=== PATIENT | female | born 1950 | race Caucasian/White ===

== ENCOUNTER 2024-01-27 08:12 | Day surgery (SDC) | payer SELFPAY, OTHER ==
[2024-01-27] VITALS (8 sets, daily range): BP systolic 120–163; BP diastolic 54–91; PULSE 55–76; RESP 16–18; TEMP 35.9–36.9; O2SAT 98–100; BMI 22.1
--- NOTE | 2024-01-27 | COLBX_PTH ---
PATIENT: JACKLYN FOOTE LOC: [facility] U#:[id number] AGE/SX: 73/F ROOM: RE01/27/[address]: Dr. Alee Alas MD : 1950 BED: DIS: 01/27/2024 SPEC #: [id number] RECD: 01/27/24 13:29 STATUS: JESUSITA BRANDT #: [id number] ANGEL: 01/27/24 00:[address]: Alee Alas DEPT: SURGICAL PATHOLOGY RECD BY: Pradip De Leon ENTERED: 01/28/24 09:41 SP TYPE: COLON BX ADORE DR: Modesta Corado, LIFE SCIENCE TEACHER-C Tissues: COLON BIOPSY Procedures: Surgery Specimen Level IV HEADER OPERATION: Colonoscopy with biopsy and electrohemostasis PRE-OP DIAGNOSIS: Encounter for colonoscopy due to history of colon cancer, history of hemicolectomy TISSUE SUBMITTED: Distal to anastomosis polyp biopsy MICROSCOPIC DIAGNOSIS Polyp distal to anastomosis, biopsy: Mucosal ulceration with associated acute and chronic inflammation and early granulation. . 01/29/2024 MICROSCOPIC DESCRIPTION Slides are reviewed. GROSS DESCRIPTION Received in fixative is one container labeled with the patient's name and designated Distal to anastomosis polyp biopsy. The specimen consists of one irregular fragment of light yost soft tissue that measures 0.3 x 0.3 x 0.1 cm. The specimen is totally submitted in one cassette. / 01/28/2024 TC:2 CPT:30056
--- NOTE | 2024-01-27 08:44 | PRE.ANES_ITS ---
ASA Classification* ASA Classification ASA Classification: 2 Assessment & Plan Anesthesia* Anesthesia Assessment Anesthesia Assessment: Discussed sedation and/or anesthesia options, risks, benefits, and alternatives with patient/parents/legal guardian/POA. Questions invited. The patient/parents/legal guardian/POA seems to understand and agrees to proceed with anesthesia plan. Reviewed the physical assessment, medical history, allergy history and patient home medications list prior to surgery/procedure/anesthetic and documented any changes. Performed airway and anesthesia risk assessments. 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 When Was Last Pacemaker Check QUESTION #4 FULL TEXT: You/Your Family Experience fever (hyperthermia) with Anesthesia Last Oral Intake Last Oral intake: Last Oral Intake NPO since Meds taken in AM with sips of water? Meds patient instructed to take am of surgery PONV PONV - leather polisher: PONV - leather polisher Female Yes 01/24/24 14:44 HX of Motion Sickness No 01/24/24 14:44 HX of N/V After Surgery No 01/24/24 14:44 Non-Smoker Yes 01/24/24 14:44 Duration of Surgery greater No 01/24/24 14:44 than 60 minutes Number of Risk Factors 2 01/24/24 14:44 PONV Score Moderate Risk 01/24/24 14:44 Height & Weight Height & Weight: Anesthesia: Height & Weight Height 5 ft 5 in 12/18/23 09:31 Respiratory Assessment Respiratory Assessment - leather polisher: Respiratory Tract Infection Hx - leather polisher Hx Respiratory Tract Infection No 01/24/24 14:44 STOP Sleep Apnea STOP Sleep Apnea - leather polisher: STOP Sleep Apnea - leather polisher Hx Hypertension No 01/24/24 14:44 Hx Sleep Apnea No 01/24/24 14:44 CPAP BIPAP Do you snore loudly (louder No 01/24/24 14:44 than talking or can be heard Do you often feel tired/ No 01/24/24 14:44 fatigued/ sleepy during daytime? Has anyone observed you stop No 01/24/24 14:44 breathing during sleep? STOP Results Negative 01/24/24 14:44 QUESTION #5 FULL TEXT : Do you snore loudly (louder than talking or can be heard through closed doors)? 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 Specify any problems Hx of Preganancy in last 3 N/A 01/24/24 14:44 Months Nurse Filling Out Transfusion NBUCHER 01/24/24 14:44 & Questions: Date: 01/24/24 01/24/24 14:44 Time: 14:46 01/24/24 14:44 Patient unable to answer at this time (ie. confused, unrespo /Reproduction History /Reproductive History - leather polisher: /Reproductive Hx- leather polisher Hx Now Gestational Age (in weeks): EDC: Hx Hx Para Hx Section SAB Active Medications Active Medications: Current Medications Generic Name Dose Route Start Last Admin Trade Name Freq PRN Reason Stop Dose Admin Lactated Ringer's 1,000 mls @ 15 mls/hr 01/27/24 08:45 IV .Q48H NATHAN PFSH Medical History Wears hearing aid Loss of hearing Wears glasses Wears dentures Cancer Low iron Non-smoker Adenocarcinoma of colon Home Medications ?Medication ?Instructions ?Recorded ?Last Taken ?Type ferrous sulfate 325 mg (65 mg 325 mg PO 3XW 12/18/23 Unknown History iron) tablet (Feosol) Allergy/AdvReac Type Severity Reaction Status Date / Time No Known Allergies Allergy Verified 01/24/24 14:43 Family History Mother Breast cancer Sister Breast cancer Sister Breast cancer Surgical History History of colonoscopy History of partial pancreatectomy H/O: hysterectomy H/O hemicolectomy Social History Smoking Status: Never smoker alcohol intake: never Review of Systems (Anesthesia) ROS Narrative System reviewed and no additional complaints, except as documented.
[2024-01-27] MEDS: Lactated Ringers 1,000 ML 15 ML IV (09:04)
--- NOTE | 2024-01-27 09:11 | HP.PCM_ITS ---
HPI - General General Date of Service: 01/27/24 HPI Narrative JACKLYN FOOTE, is a 73 F who presents office visit 12/18/23 [facility] HPI: 73-year-old female presents for surveillance colonoscopy due to history of sigmoid colon cancer status post sigmoidectomy in [place] in June 2022 for near obstructing lesion node-negative. Patient had a colonoscopy which is unable to be passed but he is obstructing lesion in July 05 at [facility]. Due to cost, etc. patient and family decided to go to [facility] for surgery. Patient also went down to [place] in December 2022 and had a mass removed from her pancreas do not have op notes or pathology from this surgery. 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 Patient has never had a colon follow-up colonoscopy and prior to the one in June 2022 she has never had a previous 1 thus not had a completion. Patient has had CAT scan did review the last one from November patient did have significant stool throughout the colon no obvious lesions were seen in the remaining colon. Patient states she has bowel movements 1-2 times a day denies any blood. Patient denies any chronic abdominal pain/nausea/vomiting/reflux. [facility] Medical History Wears hearing aid Loss of hearing Wears glasses Wears dentures Cancer Low iron Non-smoker Adenocarcinoma of colon Home Medications ?Medication ?Instructions ?Recorded ?Last Taken ?Type ferrous sulfate 325 mg (65 mg 325 mg PO 3XW 12/18/23 Unknown History iron) tablet (Feosol) Allergy/AdvReac Type Severity Reaction Status Date / Time No Known Allergies Allergy Verified 01/24/24 14:43 Family History Mother Breast cancer Sister Breast cancer Sister Breast cancer Surgical History (Updated 01/27/24 @ 09:[address] Alee Alas MD) History of colonoscopy History of partial pancreatectomy H/O: hysterectomy H/O hemicolectomy Social History Smoking Status: Never smoker alcohol intake: never Past Medical/Surgical History Planned Operation Planned Operative Procedure(s): CSCOPE Previous Hospitalizations/Surgeries HX Hospitalizations: Yes ([facility] 05/14/2023 PANCREAS ANUERISM) Any Problems With Anesthesia: No You/Your Family Experience Fever (Hyperthermia) With Anes: No Cholinesterase deficiency: No Cardiovascular Hx Hypertension: No Respiratory Hx Sleep Apnea: No Hx Respiratory Tract Infection/Cold (presently): No Do You Snore Loudly (louder than talking or can be heard): No Do You Often Feel Tired/ Fatigued/ Sleepy Dring Daytime?: No Has Anyone Observed You Stop Breathing During Sleep?: No Result (for STOP score): Negative Smoking Status: Never smoker Neurological Does patient have nerve stimulator: No Miscellaneous Recent Exposure to Contagious Disease: No Allergies No Known Allergies Allergy (Verified 01/24/24 14:43) Discharge Is Pt Admitted From a Long Term, or a Prison: No After D/C, Where Do you Plan to Go: Return Home Vital Signs Vital Signs Vital Signs: 01/27/24 08:48 01/27/24 08:48 Temperature 96.6 F L Temperature Source Temporal Pulse Rate 55 L Respiratory Rate 18 Respiratory Pattern Normal Blood Pressure 163/54 H Blood Pressure Mean 90 Blood Pressure Source Monitor Blood Pressure Position Semi-Fowlers Blood Pressure Location Left Arm Pulse Ox 99 Oxygen Delivery Method Room Air Weight Weight: 132 lb 15.02 oz Body Mass Index (BMI) 22.1 Physical Exam Const alert, oriented x3 and no apparent distress HEENT normocephalic and head/scalp atraumatic Resp normal respiratory effort Cardio regular rate GI soft to palpation and non-tender; Negative for non-distended GI Narrative: Well-healed midline incision Palpation: Negative for guarding Extremity no clubbing, cyanosis or edema Skin no rashes or lesions noted Neuro CN's II-XII intact bilaterally Psych mental status grossly normal Assessment & Plan Assessment/Plan (1) Encounter for colonoscopy due to history of colon cancer: (2) H/O hemicolectomy: Surgery Risks - Colonoscopy I discussed with the patient the risks of the procedure: Yes Risks Include but are not Limited To: Risks include but are not limited to: Bleeding, perforation requiring further surgery, inability to complete colonoscopy requiring barium enema.
--- NOTE | 2024-01-27 12:08 | OP.COLON_ITS ---
Patient Name: Shobha Calhoun Procedure Date: 01/27/2024 11:28 AM Date of : 1950 Age: 73 Procedure: Colonoscopy Indications: High risk colon cancer surveillance: Personal history of colon cancer Providers: Alee Alas MD Medicines: Monitored Anesthesia Care Patient Profile: This is a 73 year old female. Last Colonoscopy: 2022. She is status post sigmoid colectomy 2022. Complications: No immediate complications. Procedure: Pre-Anesthesia Assessment: - Prior to the procedure, a History and Physical was performed, and patient medications and allergies were reviewed. The patient's tolerance of previous anesthesia was also reviewed. The risks and benefits of the procedure and the sedation options and risks were discussed with the patient. All questions were answered, and informed consent was obtained. Prior Anticoagulants: The patient has taken no anticoagulant or antiplatelet agents. ASA Grade Assessment: Per anesthesia. After reviewing the risks and benefits, the patient was deemed in satisfactory condition to undergo the procedure. After I obtained informed consent, the scope was passed under direct vision. Throughout the procedure, the patient's blood pressure, pulse, and oxygen saturations were monitored continuously. The Colonoscope was introduced through the anus and advanced to the cecum, identified by the appendiceal orifice, ileocecal valve and palpation. The colonoscopy was performed without difficulty. The patient tolerated the procedure well. The quality of the bowel preparation was good. Scope In: 11:39:10 AM Scope Withdrawal Time 0 hours 14 minutes 57 seconds Scope Out: 11:59:59 AM Total Procedure Duration Time 0 hours 20 minutes 49 seconds Findings: The perianal and digital rectal examinations were normal. A less than 5 mm polyp was found in the distal rectum. The polyp was sessile. The polyp was removed with a cold biopsy forceps. Resection and retrieval were complete. Coagulation for hemostasis of bleeding caused by the procedure using heater probe was successful. Colorectal anastomosis widely patent. Impression: - One less than 5 mm polyp in the distal rectum, removed with a cold biopsy forceps. Resected and retrieved. Treated with a heater probe. Recommendation: - Discharge patient to home. - Resume previous diet. - Continue present medications. - Await pathology results. - Repeat colonoscopy 1-3 years for surveillance based on pathology results. Procedure Code(s): --- Professional --- 96180, PT, Colonoscopy, flexible; with biopsy, single or multiple Diagnosis Code(s): --- Professional --- Z85.038, Personal history of other malignant neoplasm of large intestine D12.8, Benign neoplasm of rectum CPT copyright 2021 [employer]. All rights reserved. The codes documented in this report are preliminary and upon [place] review may be revised to meet current compliance requirements. MD Alee Navarro MD 01/27/2024 12:08:16 PM This report has been signed electronically. Number of Addenda: 0 Note Initiated On: 01/27/2024 11:28 AM
--- NOTE | 2024-01-27 12:08 | PCM.POST.ANE ---
Anesthesia: Postop Eval I Current Vital Signs Temperature: 97 F Pulse Rate: 74 Blood Pressure: 129/64 Respiratory Rate: 16 Pulse Ox: 100 Oxygen Delivery Method: Room Air Assessment Airway patent: Yes Spontaneous unlabored respirations: Yes Mental status: Awake and Calm nausea: No Vomiting: No Anesthesia Complication: No Fluid Hydration Crystalloid volume administer (ml): 800 Total IV fluid infused: 800 Progress Note Anesthesia document: Postop Eval 1 completed: Yes
--- NOTE | 2024-01-27 12:09 | OP.CCLET_ITS ---
01/27/2024 Raffaele Suarez Re : Colonoscopy procedure for Shobha Calhoun Dear Daniela This procedure was performed on Saturday, January 27, 2024. My impressions and recommendations are as follows: Impressions : - One less than 5 mm polyp in the distal rectum, removed with a cold biopsy forceps. Resected and retrieved. Treated with a heater probe. Recommendations : - Discharge patient to home. - Resume previous diet. - Continue present medications. - Await pathology results. - Repeat colonoscopy 1-3 years for surveillance based on pathology results. My findings are described in the full procedure note, which is enclosed. If I can be of further assistance, please feel free to contact me at Doctor phone number(s): , Work: . Sincerely, MD Alee Navarro MD 01/27/2024 12:08:16 PM This report has been signed electronically.
--- NOTE | 2024-01-27 12:39 | PCM.POSTANE2 ---
Anesthesia Postop Eval I Sum Postop Eval Completion status Anesthesia document: Postop Eval 1 completed: Yes Anesthesia Postop Eval I Summary Anesthesia Postop Eval I Summary: Anesthesia Postop Eval I: Assessment Summary Airway patent Yes 01/27/24 12:09 [email or web address] Spontaneous unlabored Yes 01/27/24 12:09 [email or web address] respirations Mental status Awake,Calm 01/27/24 12:09 [email or web address] nausea No 01/27/24 12:09 [email or web address] Vomiting No 01/27/24 12:09 [email or web address] Anesthesia Postop Eval I: Fluid Summary Crystalloid volume administer 800 01/27/24 12:09 [email or web address] (ml) Colloids volume administered ( ml) Blood Product volume administered (ml) Total IV fluid infused 800 01/27/24 12:09 [email or web address] Anesthesia Postop Eval I: Summary Notes Anesthesia Complication No 01/27/24 12:09 [email or web address] Anesthesia Complication Comment: Post-operative progress note Anesthesia: Postop Eval II Evaluation Mental status: Awake and Calm Pain Level: 0 nausea: No Vomiting: No Complications Anesthesia Complication: No
== END 2024-01-27 12:50 | disposition home or self-care (01) ==
LOC: EN 08:17 → AC 08:18
PROVIDERS: PCP Nurse Practitioner Family; Referring Provider Nurse Practitioner Family; Visit Provider Surgery
PROC: 0DJD8ZZ Inspection of Lower Intestinal Tract, Via Natural or Artificial Opening Endoscopic (ICD-10-PCS; CPT 45378; principal; 2024-01-27 09:40)
DX: Z12.11 Encounter for screening for malignant neoplasm of colon (principal); K62.1 Rectal polyp; Z85.038 Personal history of other malignant neoplasm of large intestine; Z90.411 Acquired partial absence of pancreas; Z90.710 Acquired absence of both cervix and uterus
CPT/HCPCS: 45380; 88305; J7120; J2405

== ENCOUNTER 2025-02-10 21:55 | Emergency (ER) | payer OTHER, SELFPAY ==
[2025-02-10 21:55] VITALS: BP 174/91; PULSE 63; RESP 18; TEMP 36.8; O2SAT 98; BMI 24.3
--- NOTE | 2025-02-10 22:23 | ED.VIS.GI ---
HPI HPI - GI History of Present Illness Chief Complaint: Constipation Informant: patient and family Abdominal Pain/Flank Pain Onset: Days Context: Gradual Onset Timing: Continuous Nausea/Vomiting/Emesis GI Symptom: Negative for Nausea or Vomiting Diarrhea/Melena/Hematochezia GI Symptom: Positive for - (Constipation); Negative for Diarrhea, Melena or Hematochezia Onset: Days Associated Symptoms Associated Symptoms: Negative for Dysuria, Frequency, Hematuria or Urgency Narrative Narrative: 74-year-old female history of prior colon cancer with partial colectomy, hysterectomy and partial pancreatectomy. States she has had constipation since Saturday with no bowel movement over the last several days. Denies nausea or vomiting. Denies fever. No dysuria. No significant history of constipation. No recent medication or dietary changes. Prior similar symptoms: No Recent Illness/Hospitalization: No PFSH PFSH Medical History Wears hearing aid Loss of hearing Wears glasses Wears dentures Cancer Low iron Non-smoker Adenocarcinoma of colon Home Medications ?Medication ?Instructions ?Recorded ?Last Taken ?Type ferrous sulfate 325 mg (65 mg 325 mg PO 3XW 12/18/23 Unknown History iron) tablet (Feosol) Allergy/AdvReac Type Severity Reaction Status Date / Time No Known Allergies Allergy Verified 02/10/25 21:58 Family History Mother Breast cancer Sister Breast cancer Sister Breast cancer Surgical History History of colonoscopy History of partial pancreatectomy H/O: hysterectomy H/O hemicolectomy Social History Smoking Status: Never smoker alcohol intake: never ROS ROS ED ROS Narrative Constipation. Denies any recent illness. Constitutional Constitutional ED: Denies chills or fever(s) ENT ENT ED: Denies ear pain Cardiovascular Cardiovascular: Denies chest pain Respiratory/Chest Respiratory/Chest: Denies cough Gastrointestinal Gastrointestinal: Reports constipation; Denies abdominal pain, diarrhea, melena, nausea or vomiting Genitourinary Genitourinary ED: Denies dysuria or hematuria Musculoskeletal Musculoskeletal: Denies arthralgias or back pain Integumentary Denies abscess or Abrasions Neurologic Neurologic: Denies headache(s) Psychiatric Psychiatric: Denies anxiety Endocrine Endocrinology: Denies polydipsia Hematologic/Lymphatic Hematologic/Lymphatic: Denies easy bleeding Allergic/Immunologic Allergic/Immunologic ED: Denies mouth swelling, tongue swelling or urticaria EXAM Physical Exam Narrative Exam Narrative: 74 female sitting upright in bed vital signs stable afebrile. Multiple family members present. She is in no distress. H EENT exam pupils round reactive light. Moist mucous membranes. Neck nontender no JVD. No lymphadenopathy. Lungs clear to auscultation bilaterally. Heart regular rhythm no murmur. Abdomen soft, nontender, nondistended normal bowel sounds without peritoneal signs. No hernia or mass. No obstruction. Moving all 4 extremities. Normal strength. Nontender no edema. Back nontender. Neurologically she is awake and alert. Answering questions following commands. Const Vital Signs: 02/10/25 21:55 Temperature 98.2 F Temperature Source Oral Pulse Rate 63 Respiratory Rate 18 Blood Pressure 174/91 H Blood Pressure Mean 118 Pulse Ox 98 Oxygen Delivery Method Room Air MDM MDM MDM Narrative Medical decision making narrative: 74-year-old female with constipation abdomen is benign no signs of obstruction. KUB will be obtained. I do not think she needs any lab work. Repeat exam at 10:59 PM unchanged. Abdomen nontender. We went over her x-ray results. She will be discharged home with [facility] outpatient follow-up return if worse. History & Record Review Discussion w/independent historian: Patient and Family Additional record(s) reviewed:: No prior records Radiography Diagnostic Testing: KUB shows a large amount of stool in the colon and rectum. No signs of obstruction. No air-fluid levels. Discharge Plan Triage Chief Complaint: Constipation ED Provider: Danny Norwood Dx/Rx/DC Orders Clinical Impression: Constipation, History of colon cancer, History of partial colectomy Instructions: ED Constipation (Adult) Prescriptions: No Action ferrous sulfate [Feosol] 325 mg (65 mg iron) tablet 325 mg PO 3XW Primary Care Provider: Modesta Corado NP Referrals: Modesta Corado NP, PUBLIC FINANCE SPECIALIST-C [Primary Care Provider, Medical] - 1-2 Days if not improving Activity Restrictions/Additional Instructions: Plenty of fluids, fruits, vegetables and fiber. GoLytely 8 to 10 ounce glass every hour until you have a large bowel movement. Start this in the morning. Return if not improving. If you start developing significant abdominal pain or vomiting or fever. You we will have cramping with the GoLytely. Print Language: Salvadorean Disposition Disposition: Home, Self Care
--- NOTE | 2025-02-10 22:42 | RAD_ITS ---
PROCEDURE: ABDOMEN SINGLE VIEW 02/10/2025 REASON FOR EXAM: CONSTIPATION TECHNIQUE: Procedure Code: RADABD Modality: DX Procedure: ABDOMEN SINGLE VIEW COMPARISON: None available. FINDINGS: The visualized gas pattern is nonobstructive. No discernible free air. Large stool burden throughout the colon suggesting constipation. No unusual calcific densities appreciated. Left upper abdominal metallic coil embolization material and surgical clips, and surgical clips within the pelvis. Multilevel degenerative changes of the spine and mild bilateral hip arthrosis. Clear lung bases. RAD/Abdomen Single View IMPRESSION: Nonobstructive gas pattern. Large colonic stool burden. Reading Location: [id number]
[2025-02-10] MEDS: Electrolyte Solution/Peg's 4000 ML 2000 ML PO (23:09)
== END 2025-02-10 23:10 | disposition home or self-care (01) ==
PROVIDERS: Emergency Provider Emergency Medicine; PCP Nurse Practitioner Family; Visit Provider Emergency Medicine
DX: K59.00 Constipation, unspecified (principal); Z90.710 Acquired absence of both cervix and uterus; Z85.038 Personal history of other malignant neoplasm of large intestine; Z90.49 Acquired absence of other specified parts of digestive tract; Z90.411 Acquired partial absence of pancreas
CPT/HCPCS: 74018; 99282

== ENCOUNTER 2025-04-27 14:22 | Emergency (ER) | payer OTHER, SELFPAY ==
[2025-04-27] VITALS (8 sets, daily range): BP systolic 101–132; BP diastolic 54–79; PULSE 66–80; RESP 18–24; TEMP 36.8–38.4; O2SAT 95–98; BMI 25.7
--- NOTE | 2025-04-27 14:46 | ED.RN ---
NIH done by this RN is 0.
--- NOTE | 2025-04-27 15:09 | EDS_ITS ---
HPI History of Present Illness Chief Complaint: Mental Status Change [facility] Medical History Wears hearing aid Loss of hearing Wears glasses Wears dentures Cancer Low iron Non-smoker Adenocarcinoma of colon Home Medications ?Medication ?Instructions ?Recorded ?Last Taken ?Type ferrous sulfate 325 mg (65 mg 325 mg PO 3XW 12/18/23 1 06/27/24 History iron) tablet (Feosol) Allergy/AdvReac Type Severity Reaction Status Date / Time No Known Allergies Allergy Verified 04/27/25 14:24 Family History Mother Breast cancer Sister Breast cancer Sister Breast cancer Surgical History History of colonoscopy History of partial pancreatectomy H/O: hysterectomy H/O hemicolectomy Social History Smoking Status: Never smoker alcohol intake: never EXAM Physical Exam Const Vital Signs: 04/27/25 14:24 04/27/25 14:59 04/27/25 15:23 Temperature 101.2 F H 101.2 F H 98.3 F Temperature Source Oral Oral Oral Pulse Rate 80 76 Respiratory Rate 18 18 Blood Pressure 127/79 H 131/64 H Blood Pressure Mean 95 86 Pulse Ox 97 98 Oxygen Delivery Method Room Air Room Air 04/27/25 15:28 04/27/25 16:00 04/27/25 17:00 Temperature 98.3 F 98.3 F 98.7 F Temperature Source Oral Oral Oral Pulse Rate 76 70 Respiratory Rate 24 H 18 Blood Pressure 132/65 H 132/65 H Blood Pressure Mean 87 87 Pulse Ox 98 97 Oxygen Delivery Method Room Air Room Air 04/27/25 17:00 04/27/25 18:14 Temperature 98.7 F Temperature Source Oral Pulse Rate 67 68 Respiratory Rate 20 H 18 Blood Pressure 113/64 126/63 H Blood Pressure Mean 80 84 Pulse Ox 95 97 Oxygen Delivery Method Room Air Room Air MDM MDM MDM Narrative Medical decision making narrative: HISTORY OF PRESENT ILLNESS: Chief complaint: 75-year-old female history of colon cancer status post multiple abdominal surgeries presents with not feeling well. She states she does not feel right. She does she woke up at 530 this morning with the symptoms. She further states she felt diffusely weak and off. States she had chills last night. She denies any HEENT symptoms such as ear pain, sore throat or runny nose. No sick contacts however they note patient went to a yesterday and was out in the cold. Patient denies abdominal pain. Denies chest pain. Denies cough fever chills. Denies trouble urinating, dysuria, frequency, urgency. Denies any rashes. Denies any diarrhea constipation or other changes to bowel habits. REVIEW OF SYSTEMS: Pertinent positives: Fever, confusion, feeling off Pertinent negatives: As per HPI PHYSICAL EXAM: Nursing triage notes reviewed, Vital signs reviewed Constitutional: please see mdm HENT: MMM, no signs of HEENT infection Eyes: Pupils equal round and reactive to light, Extraocular muscles intact Neck: No stridor, no JVD, full neck ROM Lungs: Clear to auscultation, No wheezing or rales. No increased work of breathing, no conversational dyspnea, no accessory muscle use, no nasal flaring. No respiratory distress noted Heart: Regular rate and rhythm, No murmurs, No rubs and No gallops, 2+ distal pulses (radial, femoral, posterior tibial) in all extremities Abdomen: Soft, there is no tenderness, rigidity, rebound or guarding, no obvious peritoneal signs, no palpable pulsatile abdominal masses, no auscultated abdominal bruit : No CVAT Extremities: No edema Neuro: Alert and oriented x3, neuro exam at baseline, cranial nerves II through XII are intact. No pain with extraocular muscle movement. There is negative test of skew. 5 of 5 strength in upper and lower extremities in flexion extension. Intact sensation to light touch in upper and lower extremity dermatomes. No truncal or extremity ataxia. No dysdiadochokinesia. Normal gait. 2+ reflexes in upper and lower extremities. No meningeal signs. Negative Babinski. NIH of 0. Skin: No rash or lesions noted MEDICAL DECISION MAKING: Chief Complaint: please see HPI External records reviewed: Reviewed prior ED visit for constipation Factors affecting care: Colon cancer status post hemicolectomy Social determinants of health: none History obtained from others: EMS ? noted blood sugars 125 Consults: Neurosurgery (Dr. Dillard), Internal Medicine at [facility] (Dr. Mckee) MDM Narrative: Patient was initially febrile otherwise saturating well on room air. She was not tachycardic or tachypneic. Exam without obvious source of infection patient was alert and oriented x 3. She was not altered or confused. She is nontoxic- appearing Of note the patient's initial temperature was reported as 101.2 however before the patient received any antipyretics interpreted repeated and it was 98.2. The afebrile temperature matches much more with her clinical presentation. I considered the following differential diagnosis: Viral illness (COVID/flu/RSV), pneumonia, UTI, intra-abdominal infection, meningitis I obtained a broad lab and imaging work to further determine if the patient was suffering from a life-threatening etiology. Initially treat the patient with 500 cc bolus of normal saline, 4 mg IV Zofran and a gram of Tylenol To control fever. ALL IMAGES (IF OBTAINED) HAVE BEEN PERSONALLY REVIEWED AND INTERPRETED BY MYSELF. EKG with normal sinus rhythm rate of 69, left axis deviation, normal intervals, no STEMI or obvious arrhythmia CBC with no leukocytosis, no anemia or thrombocytopenia BMP without evidence of significant electrolyte abnormalities, no anion gap, no acute kidney injury. LFTs show no evidence of hepatobiliary pathology. Lactate is wnl indicating no end-organ hypoperfusion and/or hypoxia. Urinalysis shows no evidence of urinary inflammation suggestive of UTI COVID/flu/RSV negative CT scan of brain concerning for brain mass with mild edema Discussed the patient CT findings with tertiary care neurosurgery Dr. Dillard who recommended transfer. Recommended against acute steroid treatment but recommended prophylactically treated with antiepileptic. I gave the patient 1 g of Keppra Discussed with internal medicine physician at tertiary care center Dr. Mckee agreed to accept the patient in transfer. Currently awaiting transfer. In terms of patient's initial fever and concern for meningitis. The patient was alert and orient x 3, she was not meningitic, she was not encephalopathic. I suspect the elevated temperature initially is a recording error given the patient's temperature was normal the entire time she was in the ED for several hours. Her temp is also normal before she received antipyretics. In addition she has a more possible reason for her change in mental status which is a brain mass rather than meningitis. The patient and/or family, caregivers express understanding. The patient and/or family, caregivers agrees with the plan. Shared decision making: I will have a discussion with the patient and or visitors regarding risk/benefits of further testing or admission. They will be made aware of of the risk/benefits inherent in this decision they will be given the opportunity to voice understanding. Total critical care time today provided was at least 0 minutes. This excludes separately billable procedures. Critical care time (if documented) is secondary to the patient having high probability of clinically significant/life threatening deterioration in the patient's condition which required my urgent intervention. Impression: 1. Transient alteration awareness 2. Brain mass Dispo: Transfer to [facility] This note was generated with iFit dictation software. It may contain incorrect words, spelling, and punctuation that were not noted in review of the chart prior to signing. Lab Data Labs: Laboratory Results - last 24 hr 04/27/25 04/27/25 04/27/25 14:30 14:55 15:34 WBC 5.2 RBC 4.87 Hgb 14.1 Hct 42.7 MCV 87.7 MCH 29.0 MCHC 33.0 RDW Std Deviation 44.2 H RDW Coeff of Nini 13.6 Plt Count 149 L MPV 12.5 H Immature Gran % (Auto) 0.400 Neut % (Auto) 83.6 H Lymph % (Auto) 10.6 L Dillon % (Auto) 5.0 Eos % (Auto) 0.0 Baso % (Auto) 0.4 Absolute Neuts (auto) 4.3 Absolute Lymphs (auto) 0.55 L Nucleated RBC % 0 Sodium 140 Potassium 3.4 Chloride 103 Carbon Dioxide 27.7 Anion Gap 9 BUN 12 Creatinine 0.84 Estim Creat Clear Calc 55.98 Est GFR (MDRD) Non-Af 72 BUN/Creatinine Ratio 14.7 Glucose 120 H Lactic Acid < 1.0 Calcium 8.9 Total Bilirubin 0.52 AST 20 ALT 14 Alkaline Phosphatase 73 Total Protein 6.6 Albumin 3.9 Globulin 2.8 Albumin/Globulin Ratio 1.4 Urine Color Yellow Urine Clarity Clear Urine pH 6.5 Ur Specific Palmer 1.010 Urine Protein Negative Urine Glucose (UA) Normal Urine Ketones Negative Urine Occult Blood Negative Urine Nitrite Negative Urine Bilirubin Negative Urine Urobilinogen Normal Ur Leukocyte Esterase Negative Urine RBC 0 SEEN Urine WBC 0-5 SEEN Ur Squamous Epith Cells 0-5 SEEN Urine Bacteria 1+ Urine Mucus 0 SEEN Radiography Diagnostic Testing: Clinical Impression(s) from Imaging Studies Brain CT 04/27/25 15:29 IMPRESSION: Ill-defined isodense mass lesion in the high right frontoparietal parafalcine region, with associated mild localized mass-effect and vasogenic parenchymal edema. 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 Recommend contrast-enhanced brain MRI. Red Alert: The critical above were relayed directly by me via telephone to Torin Mcdonald on 04/27/2025 at 3:25 pm SPORTS ADMINISTRATOR with readback verification. Reading Location: [facility] Chest X-Ray 04/27/25 16:00 IMPRESSION: Lungs appear clear throughout. No pleural effusion or pneumothorax is seen. The cardiomediastinal silhouette is within the normal range for age. Thoracic dextroscoliosis is seen, along with [id number] degenerative leandra nges of the spine. Bilateral acromioclavicular joint degenerative changes are also noted. No evidence of acute cardiopulmonary disease. Reading Location: [facility] Discharge Plan Triage Chief Complaint: Mental Status Change ED Provider: Torin Mcdonald Dx/Rx/DC Orders Prescriptions: No Action ferrous sulfate [Feosol] 325 mg (65 mg iron) tablet 325 mg PO 3XW Patient Comments: takes mo we fr Primary Care Provider: Modesta Corado NP Referrals: Modesta Corado NP, [facility] [Primary Care Provider, Medical] Print Language: Telugu
--- NOTE | 2025-04-27 15:29 | EKG12_ITS ---
Test Reason : CHANGE IN MS Blood Pressure : */* mmHG Vent. Rate : 69 BPM Atrial Rate : 69 BPM P-R Int : 162 ms QRS Dur : 96 ms QT Int : 410 ms P-R-T Axes : 21 -10 26 degrees QTcB Int : 439 ms Normal sinus rhythm Incomplete right bundle branch block Cannot rule out Inferior infarct , age undetermined Abnormal ECG Confirmed by Arsen Hartmann ([id number]), commissioning editor FRANCIS MAGUIRE ([id number]) on 04/28/2025 10:26:27 AM Referred By: Confirmed By: Arsen Hartmann
--- NOTE | 2025-04-27 15:29 | CT_ITS ---
PROCEDURE: CT BRAIN/HEAD WITHOUT CONTRAST 04/27/2025 REASON FOR EXAM: CONFUSION TECHNIQUE: Procedure Code: CTBR Modality: CT Procedure: BRAIN/HEAD WITHOUT CONTRAST Coronal and Sagittal reconstruction series were provided. One or more dose reduction techniques were used (e.g., Automated exposure control, adjustment of the mA and/or kV according to patient size, use of iterative reconstruction technique. RADIATION DOSE SUMMARY: CTDlvol: 44.99 mGy DLP: 745.49 mGycm COMPARISON: None available. FINDINGS: There is a mass lesion in the high right frontoparietal region near the vertex which is nearly isodense to brain parenchyma, measuring roughly 5.5 x 5.1 x 3.4 cm (AP, CC, TV). There is localized expansile appearance of the adjacent dorsal aspect of the superior sagittal venous sinus, which could potentially reflect associated thrombosis and/or invasion. Associated mass-effect on the right frontoparietal lobes with partial effacement of the right lateral ventricle, and trace leftward midline shift. Mild surrounding vasogenic parenchymal edema in the posterior right cerebral hemisphere. No acute intracranial hemorrhage or extra-axial fluid collection. Patent basilar cisterns. No evidence of acute territorial infarct. Prior right orbital cataract surgery. Intact skull base and calvarium without osseous erosion or destruction. Well-aerated paranasal sinuses and mastoid air cells. CT/Brain/Head without Contrast IMPRESSION: Ill-defined isodense mass lesion in the high right frontoparietal parafalcine r egion, with associated mild localized mass-effect and vasogenic parenchymal edema. This is probably a noncalcified meningioma bu t other neoplastic etiologies are not excluded. Recommend contrast-enhanced brain MRI. Red Alert: The critical above were relayed directly by me via telephone to Torin Mcdonald on 04/27/2025 at 3:25 pm POLISHER ALUMINUM with readback verification. Reading Location: [id number]
[2025-04-27 15:36] LABS: Mucous, Urine 0 SEEN /hpf (<or=2+); Red Blood Cells-Urine 0 SEEN /hpf (0-5)
[2025-04-27] MEDS: 0.9% Normal Saline (500mL Bag) 500 ML 1000 ML IV (15:39)
[2025-04-27 15:47] LABS: Color, Urine Yellow (Yellow); Glucose, Dipstick Normal (Normal); Ketone-Dipstick Negative (Negative); Leukocyte Esterase-Dipstick Negative /ul (Negative); Nitrite-Dipstick Negative (Negative); Occult Blood-Urine Negative /ul (Negative); Protein-Dipstick Negative (Negative); Specific Gravity, Urine 1.010 (1.002-1.030); Urine Bilirubin Dipstick Negative (Negative)
[2025-04-27 15:51] LABS: Hematocrit 42.7 % (37-47); Hemoglobin 14.1 g/dL (12.0-15.0); Immature Granulocytes Count 0.020 X10^3/uL (0.0-0.0); Mean Corp Hgb Conc 33.0 g/dL (32-36); Mean Corpuscular Volume 87.7 fL (81-99); Mean Platelet Vol. 12.5 fl (6.2-12.0); NRBC Flagged by Analyzer 0 % (0-5); POSITIVE DIFFERENTIAL YES; Platelet Count 149 K/mm3 (150-450); RBC Distribution Width CV 13.6 % (11.6-14.6); RBC Distribution Width SD 44.2 fl (35.1-43.9); Red Blood Count 4.87 M/mm3 (4.2-5.4); White Blood Count 5.2 K/mm3 (4.4-11.0)
--- NOTE | 2025-04-27 16:00 | RAD_ITS ---
PROCEDURE: CHEST 1 VIEW (PORTABLE) 04/27/2025 REASON FOR EXAM: FEVER TECHNIQUE: Frontal view of the chest. COMPARISON: None. RAD/Chest 1 View (Portable) IMPRESSION: Lungs appear clear throughout. No pleural effusion or pneumothorax is seen. The cardiomediastinal silhouette is within the normal range for age. Thoracic dextroscoliosis is seen, along with [id number] degenerative uribe ges of the spine. Bilateral acromioclavicular joint degenerative changes are also noted. No evidence of acute cardiopulmonary disease. Reading Location: [place] [id number]
[2025-04-27 16:08] LABS: AST(SGOT) 20 U/L (<=31); Albumin, Serum 3.9 g/dL (3.4-4.8); BUN 12 mg/dL (4-19); BUN/Creat Ratio 14.7 RATIO (10-20); Calcium,Total 8.9 mg/dL (7.6-11.0); Estimated Creatinine Clearance 55.98 ml/min (50-250); Globulin 2.8 g/dL (2.2-4.2); Glucose 120 mg/dL (70-99)
[2025-04-27 16:09] LABS: Alanine Aminotransfer ALT/SGPT 14 U/L (<=34); Alkaline Phosphatase 73 U/L (35-104); Anion Gap 9 (5-15); Carbon Dioxide 27.7 mmol/L (21.0-32.0); Chloride 103 mmol/L (98-108); Potassium 3.4 mmol/L (3.3-5.1)
[2025-04-27 16:21] LABS: Squamous Epithelial Cells - UA 0-5 SEEN /hpf (5-10)
[2025-04-27] MEDS: levETIRAcetam IV 1,000 MG/100 ML BAG 400 MG IV (17:50)
--- OUTSIDE RECORDS SUMMARY | 2025-04-27 20:29 | XMS RPT_ITS | CCD ---
Author Organization [facility] Care Team Providers Care Immigration Attorney Name Role Phone ESTER MONTILLA-ANAHI, MODESTA Primary Care Physician ( [phone] Modesta Kelly Unavailable Unavailable Unavailable Primary Care Provider Unavailabl e MADELIN SCHMIDT DO Consulting Unavailable RADHA JIN, RACHEL Admitting Unavailable ESTER ROCHE, MODESTA Primary Care Unavailjosephine MARQUEZ MD, DWAYNE Attending Unavailable MAYDA JIN, Ph.D, SABINE W Consulting Unavaila ble KAPPPATRICIA, MODESTA ELEVATOR CONSTRUCTOR SUPERVISOR-C Admitting Unavailable JONATHAN, LUKE E Consulting Unavailable KAPPER, MODESTA ELEVATOR CONSTRUCTOR SUPERVISOR-C Primary Care Unavailable KAPPER, MODESTA ELEVATOR CONSTRUCTOR SUPERVISOR-C Attending Unavailable PROVIDER, UNKNOWN Consulting Unavailable KAPPER, MODESTA ELEVATOR CONSTRUCTOR SUPERVISOR-C Primary Care Unavailable KAPPER, MODESTA ELEVATOR CONSTRUCTOR SUPERVISOR-C Consulting Unavailable KAPPER, MODESTA ELEVATOR CONSTRUCTOR SUPERVISOR-C Attending Unavailable KAPPER, MODESTA ELEVATOR CONSTRUCTOR SUPERVISOR-C Admitting Unavailable PROVIDER, UNKNOWN Consulting Unavailable KAPPER, MODESTA ELEVATOR CONSTRUCTOR SUPERVISOR-C Admitting Unavailable JONATHAN, LUKE E Consulting Unavailable KAPPER, MODESTA ELEVATOR CONSTRUCTOR SUPERVISOR-C Primary Care Unavailable KAPPER, MODESTA ELEVATOR CONSTRUCTOR SUPERVISOR-C Attending Unavailable PROVIDER, UNKNOWN Consulting Unavailable JONATHAN, LUKE E Primary Care Unavailable JONATHAN, LUKE E Consulting Unavailable JONATHAN, LUKE E Attending Unavailable JONATHAN, LUKE E Admitting Unavailable PROVIDER, UNKNOWN Consulting Unavailable KAPPER, MODESTA ELEVATOR CONSTRUCTOR SUPERVISOR-C Primary Care Unavailable JONATHAN, LUKE E Consulting Unavailable KAPPER, MODESTA ELEVATOR CONSTRUCTOR SUPERVISOR-C Attending Unavailable KAPPER, MODESTA ELEVATOR CONSTRUCTOR SUPERVISOR-C Admitting Unavailable PROVIDER, UNKNOWN Consulting Unavailable MADELIN HERNANDEZ Admitting Unavailable MADELIN HERNANDEZ Primary Care Unavailable MADELIN HERNANDEZ Attending Unavailable JONATHAN, LUKE E Consulting Unavailable PROVIDER, UNKNOWN Consulting Unavailable PEREZ CAMPBELL Admitting Unavailable PEREZ CAMPBELL Attending Unavailable WILCH, ALONSO E Referring Unavailable Kapper ELEVATOR CONSTRUCTOR SUPERVISOR-C, Modesta Luna Primary Care Physician Dr. Danny Norwood MD Emergency Department Physici an Danny Norwood Attending Unavailable Ester KINNEY, Modesta Carrasco Primary Care Unavailabl e Medications Current Medications Medication Drug Class(es) Dates Sig (Normalized) Sig (Original) acetaminophen 325 mg oral tablet (1 source) Start: 05-18-2023 take 1 tablet by mouth every four hours as needed acetaminophen (Tylenol) tablet 650 mg ferrous sulfate 325 mg oral tablet (3 sources) Start: 12-18-2023 take 1 tablet by mouth three times weekly Start: 09-24-2022 IRON (ferrous sulfate 325 mg) 65 mg oral tablet Dose : 325 mg = 1 tab(s), Oral, qDay Start Date: 05/17/23 Status: Ordered Naloxone (1 source) Opioid Antagonist Start: 05-18-2023 naloxone (Na rcan) injection 0.2 mg Ondansetron (1 source) Serotonin-3 Receptor Antagonist Start: 05-18-2023 take 1 tablet by mouth every eight hours as needed ondansetron (Zofran) tablet 4 mg traMADol hydrochloride 50 mg oral tablet (1 source) Opioid Agonist Start: 05-18-2023 take 1 tablet by mouth every six hours as needed traMADol (Ultram) tablet 50 mg Completed/Discontinued Medications Medication Drug Class(es) Dates Sig (Normalized) Sig (Original) 1 ml fentaNYL 0.05 mg/ml injection (3 sources) Opioid Agonist Start: 05-18-2023 End: 05-18-2023 fentaNYL PF (Sublimaze) injection iohexol (OMNIPaque) 350 mg iodine/mL solution 100 mL (2 sources) Start: 05-18-2023 End: 05-18-2023 iohexol (OMNIPaque) 350 mg iodine/mL solution 100 mL Start: 05-18-2023 End: 05-18-2023 iohexol (OMNIPaque) 350 mg i odine/mL solution 100 mL iohexol (OMNIPaque) 350 mg iodine/mL solution 150 mL (1 source) Start: 05-18-2023 End: 05-18-2023 iohexol (OMNIPaque) 350 mg iodine/mL solution 150 mL 5 ml midazolam 1 mg/ml injection (2 sources) Benzodiazepine Start: 05-18-2023 End: 05-18-2023 midazolam (Versed) injection Problems Active Problems Problem Classification Problem Date Documented Da te Episodic/Chronic Aortic; peripheral; and visceral artery aneurysms (7 sources) Arterial aneurysm; 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] Onset: 05-17-2023 Chronic Cancer of colon (1 source) Adenocarcinoma of large intestine; Translations: [Malignant neoplasm of colon, unspecified] 12-18-2023 Chronic Cancer of colon (1 source) History of malignant neoplasm of colon; Translations: [Personal history of other malignant neoplasm of large intestine] 02-10-2025 Episodic Other gastrointestinal disorders (1 source) Constipation; Translations: [Constipation, unspecified] 02-10-2025 Episodic Other gastrointestinal disorders (1 source) Constipation, unspecified; Translations: [Constipation, unspecified] Onset: 02-20-2025 Episodic Other screening for suspected conditions (not mental disorders or infectious disease) (4 sources) Abnormal findings on diagnostic imaging of other abdominal regions, including retroperitoneum; Translations: [History of malignant neoplasm of colon] Onset: 11-30-2022 Episodic Phlebitis; thrombophlebitis and thromboembolism (1 source) Thromboembolism of vein; Translations: [Acute embolism and thrombosis of unspecified vein] Onset: 05-17-2023 Episodic Residual codes; unclassified (2 sources) History of partial resection of colon; Translations: [Acquired absence of other specified parts of digestive tract] 01-27-2024 Episodic Comment on above: Left hemicolectomy F ebruary 2022 in [place] nodes negative Past or Other Problems Problem Classification Problem Date Documented Da te Episodic/Chronic Other gastrointestinal disorders (1 source) Other specified diseases of intestine; Translations: [Other specified diseases of intestine] Onset: 11-30-2022 Episodic Results Test Name Value Interpretation Reference Range Facility Abdomen Single Viewon 2024 Abdomen Single View [facility] [address] [place] [address] Abdomen Single View MR#: [id number] Acct: [id number] Name: JACKLYN CALHOUN Rep #: [id number] : 1950 F 74 From: Zack Skelton MD PCP: Modesta Corado NP-C Status: REG ER Study: Abdomen Single View Date of Exam: 02/10/25 Exam# [id number] Ordering Dr: Danny Norwood MD PROCEDURE: ABDOMEN SINGLE VIEW 02/10/2025 REASON FOR EXAM: CONSTIPATION TECHNIQUE: Procedure Code: RADABD Modality: DX Procedure: ABDOMEN SINGLE VIEW COMPARISON: None available. FINDINGS: The visualized gas pattern is nonobstructive. No discernible free air. Large stool burden throughout the colon suggesting constipation. No unusual calcific densities appreciated. Left upper abdominal metallic coil embolization material and surgical clips, and surgical clips within the pelvis. Multilevel degenerative changes of the spine and mild bilateral hip arthrosis. Clear lung bases. RAD/Abdomen Single View IMPRESSION: Nonobstructive gas pattern. Large colonic stool burden. Reading Location: [facility] CC: ELEVATOR CONSTRUCTOR SUPERVISOR-C Modesta Corado; Dr. Danny Norwood MD Mechanical Apprentice: Signed Normal [facility] [place] Emergency Department Summary on 02-10-2025 Emergency Department Summary [facility] Medical Records Department [address] [place] [id number] Emergency Department Summary 02/10/25 MR#: [id number] Acct: [id number] Name: JACKLYN CALHOUN Rep #: [id number] : 1950 74 From: Danny Norwood MD PCP: Modesta Corado, ELEVATOR CONSTRUCTOR SUPERVISOR-C Status:[facility] ER Location: ED HPI HPI - GI History of Present Illness Chief Complaint: Constipation Informant: patient and family Abdominal Pain/Flank Pain Onset: Days Context: Gradual Onset Timing: Continuous Nausea/Vomiting/Precious sis GI Symptom: Negative for Nausea or Vomiting Diarrhea/Melena/Hem atochezia GI Symptom: Positive for - (Constipation); Negative for Diarrhea, Melena or Hematochezia Onset: Days Associated Symptoms Associated Symptoms: Negative for Dysuria, Frequency, Hematuria or Urgency Narrative Narrative: 74-year-old female history of prior colon cancer with partial colectomy, hysterectomy and partial pancreatectomy. States she has had constipation since Saturday with no bowel movement over the last several days. Denies nausea or vomiting. Denies fever. No dysuria. No significant history of constipation. No recent medication or dietary changes. Prior similar symptoms: No Recent Illness/Hospitaliza tion: No PFSH PFSH Medical History Wears hearing aid Loss of hearing Wears glasses Wears dentures Cancer Low iron Non-smoker Adenocarcinoma of colon Home Medications ???Medication ???Instructions ???Recorded ???Last Taken ???Type ferrous sulfate 325 mg (65 mg 325 mg PO 3XW 12/18/23 Unknown His tory iron) tablet (Feosol) Allergy/AdvReac Type Severity Reaction Status Date / Time No Known Allergies Allergy Verified 02/10/25 21:58 Family History Mother Breast cancer Sister Breast cancer Sister Breast cancer Surgical History History of colonoscopy History of partial pancreatectomy H/O: hysterectomy H/O hemicolectomy Social History Smoking Status: Never smoker alcohol intake: never ROS ROS ED ROS Narrative Constipation. Denies any recent illness. Constitutional Constitutional ED: Denies chills or fever(s) ENT ENT ED: Denies ear pain Cardiovascular Cardiovascular: Denies chest pain Respiratory/Chest Respiratory/Chest: Denies cough Gastrointestinal Gastrointestinal: Reports constipation; Denies abdominal pain, diarrhea, melena, nausea or vomiting Genitourinary Genitourinary ED: Denies dysuria or hematuria Musculoskeletal Musculoskeletal: Denies arthralgias or back pain Integumentary Denies abscess or Abrasions Neurologic Neurologic: Denies headache(s) Psychiatric Psychiatric: Denies anxiety Endocrine Endocrinology: Denies polydipsia Hematologic/Lymphat ic Hematologic/Lymphat ic: Denies easy bleeding Allergic/Immunologi c Allergic/Immunologi c ED: Denies mouth swelling, tongue swelling or urticaria EXAM Physical Exam Narrative Exam Narrative: 74 female sitting upright in bed vital signs stable afebrile. Multiple family members present. She is in no distress. H EENT exam pupils round reactive light. Moist mucous membranes. Neck nontender no JVD. No lymphadenopathy. Lungs clear to auscultation bilaterally. Heart regular rhythm no murmur. Abdomen soft, nontender, nondistended normal bowel sounds without peritoneal signs. No hernia or mass. No obstruction. Moving all 4 extremities. Normal strength. Nontender no edema. Back nontender. Neurologically she is awake and alert. Answering questions following commands. Const Vital Signs: 02/10/25 21:55 Temperature 98.2 F Temperature Source Oral Pulse Rate 63 Respiratory Rate 18 Blood Pressure 174/91 H Blood Pressure Mean 118 Pulse Ox 98 Oxygen Delivery Method Room Air MDM MDM MDM Narrative Medical decision making narrative: 74-year-old female with constipation abdomen is benign no signs of obstruction. KUB will be obtained. I do not think she needs any lab work. Repeat exam at 10:59 PM unchanged. Abdomen nontender. We went over her x-ray results. She will be discharged home with [facility] outpatient follow-up return if worse. History Record Review Discussion w/independent historian: Patient and Family Additional record(s) reviewed:: No prior records Radiography Diagnostic Testing: KUB shows a large amount of stool in the colon and rectum. No signs of obstruction. No air-fluid levels. Discharge Plan Triage Chief Complaint: Constipation ED Provider: Danny Norwood Dx/Rx/DC Orders Clinical Impression: Constipation, History of colon cancer, History of partial colectomy Instructions: ED Constipation (Adult) Prescriptions: (more content not included)... Normal [facility] [place] CT ABDOMEN/PELVIS W/[facility] CT ABDOMEN/PELVIS W/[place] [address] Patient: JACKLYN CALHOUN Phone#: : 1950 Age: 73 Gender: F Pt. Type: Out Account: [id number] Location: Ordering: MODESTA CORADO Exam Date: 11/26/2023/16:00 Family Phys: Charge Code: [id number] Physician: Woodruff Order #: [id number] Dose#: 22.40 PROCEDURE: CT ABDOMEN/PELVIS WITH AND WITHOUT CONTRAST COMPARISON: [facility], CT, ABDOMEN/PELVIS W CON, 05/15/2023, 16:36. [facility], CT, ABDOMEN/PELVIS W CON, 11/21/2022, 11:22. INDICATIONS: Colon cancer. TECHNIQUE: After obtaining the patient's consent, CT images of the abdomen were created with oral contrast and without and with non-ionic intravenous contrast material, and CT images of the pelvis were obtained with non-ionic intravenous contrast material. All CT scans at this facility use dose modulation, iterative reconstruction, and/or weight based dosing when appropriate to reduce radiation dose to as low as reasonably achievable. IV CONTRAST: Omnipaque 350,80ml TOTAL DOSE: CTDIvol(mGy) FINDINGS: LIVER: Normal. No enlargement, atrophy, abnormal density, or significant focal lesion. BILIARY: Gallbladder is present. 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 There is dense streaking artifact from the coil material limiting evaluation at the involved levels. Within the limits of artifact no appreciable aneurysm sac identified. The head and proximal pancreas are unremarkable in contour. SPLEEN: Normal. No enlargement or focal lesion. KIDNEYS: Kidneys enhance and excrete contrast symmetrically. No hydronephrosis. There is a cyst in the left kidney measuring 1.2 cm. ADRENALS: Normal. No mass or enlargement. AORTA/VASCULAR: No aortic aneurysm. There are atherosclerotic calcifications of the aorta and branch vessels. RETROPERITONEUM: Normal. No mass or adenopathy. BOWEL/MESENTERY: Oral contrast is present in the stomach, small and large bowel. There is moderate to large stool burden. Appendix is unremarkable in size. There is bowel anastamosis material at the sigmoid colon. Continued Report - Page 2 of 2 Patient: JACKLYN CALHOUN Phone#: : 1950 Age: 73 Gender: F Pt. Type: Out Account: [id number] Location: Ordering: MODESTA CORADO Exam Date: 11/26/2023/16:00 Family Phys: Charge Code: [id number] Physician: Woodruff Order #: [id number] Dose#: 22.40 ABDOMINAL WALL: Evidence of remote midline abdominal incision. URINARY BLADDER: Normal. No visible focal wall thickening, lesion, or calculus. PELVIC NODES: Normal. No adenopathy. Surgical clips are present along the pelvic sidewall. PELVIC ORGANS: Uterus is absent. No adnexal mass. BONES: Degenerative changes of the spine. LUNG BASES: Normal. No visible pulmonary or pleural disease. OTHER: Negative. CONCLUSION: 1. 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 Streak artifact limits evaluation in this location however no appreciable aneurysm identified. 2. Constipation Dictated by: Kimberly Maria MD on 11/26/2023 at 17:08 Approved by: Kimberly Maria MD on 11/26/2023 at 17:25 Normal [facility] CTA Abdominal vessels and Pe lvis vessels WO and W contrast Manny 05-19-2023 1. 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 Pseudoaneurysm measures approximately 7.3 x 4.8 cm, similar to prior exam. 2. 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 3. Additional chronic findings as above. I personally reviewed the images/study and I agree with the findings as stated. This study was interpreted at [place], [place]. MACRO: None Signed by: Garcia Torres 05/19/2023 7:40 AM Dictation workstation: [id number] Interpreted By: Garcia Torres and Baker Zachary STUDY: CT ANGIO ABDOMEN PELVIS W AND/OR WO IV IV CONTRAST; 05/18/2023 7:15 am INDICATION: Signs/Symptoms:s/p IR embolization of splenic artery pseudoaneurysm. COMPARISON: CT abdomen and pelvis on 05/17/2023. ACCESSION NUMBER(S): [id number] ORDERING CLINICIAN: SANAZ TAYLOR TECHNIQUE: Contiguous [address] images were acquired through the abdomen and pelvis before and after administration of 93 mL of Omnipaque 350 intravenous contrast. Postcontrast images were obtained in both early arterial and delayed phase images. Sagittal and coronal images were reconstructed. Maximum intensity projection and three dimensional images were constructed at separate workstation. FINDINGS: VASCULAR FINDINGS: Abdominal aorta is normal in caliber without evidence of aneurysmal dilatation. No evidence of aortic dissection. Mild atherosclerotic calcifications of the abdominal its branching vessels. Celiac axis, superior mesenteric artery, inferior mesenteric artery, and bilateral single renal arteries are patent without any significant narrowing. Celiac axis demonstrates a normal branching pattern. Bilateral common iliac arteries, internal and external iliac arteries, common femoral arteries, and the proximal branches including superficial femoral and profunda femoris arteries are patent without any significant narrowing. Mild atherosclerotic calcifications bilateral common, internal, and external iliac arteries. Interval postoperative changes from coil embolization of splenic artery pseudoaneurysm. No extravasation of contrast to suggest active hemorrhage. Pseudoaneurysm measures approximately 7.3 x 4.8 cm in the transaxial dimension (series 601, image 108), similar to prior exams. Heart is within normal limits of size. No evidence of pericardial effusion. ---- ABDOMEN & PELVIS: LIVER: Within normal limits. BILE DUCTS: Nondilated. GALLBLADDER: No evidence of calcified gallstones or wall thickening. PANCREAS: Postsurgical changes from pancreatic tail resection with redemonstration of large splenic artery pseudoaneurysm, measuring approximately 7.3 x 4.8 cm in the transaxial dimension, similar to prior exam. Remaining pancreas is normal in appearance. 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 ADRENALS: Within normal limits. KIDNEYS, URETERS, URINARY BLADDER: Symmetric bilateral renal enhancement. Multiple hypodense lesions throughout the bilateral kidneys, similar to prior exam, favored to represent simple renal cysts. No evidence of hydronephrosis. Bladder is unremarkable. BOWEL: No evidence of abnormal dilatation or obstruction of the small or large bowel. No evidence of pneumoperitoneum. Positive oral contrast visualized throughout the large bowel. REPRODUCTIVE ORGANS: Unremarkable. PERITONEUM / RETROPERITONEUM / LYMPH NODES: No evidence of any free fluid. No evidence of any significantly enlarged intra-abdominal or pelvic lymph nodes. ABDOMINAL WALL: Multiple small air foci and mild edema/fat stranding within the right groin soft tissues, likely postoperative in nature. Abdominal wall soft tissues are otherwise unremarkable. LOWER CHEST: Mild bibasilar atelectasis. Lung bases are otherwise unremarkable without evidence of focal pulmonary consolidation, pleural effusion, or pneumothorax. BONES: No evidence of suspicious lytic or blastic osseous lesions. [facility] Garcia Torres MD - 05/19/2023 Interpreted By: Garcia Torres and Baker Zachary STUDY: CT ANGIO ABDOMEN PELVIS W AND/OR WO IV IV CONTRAST; 05/18/2023 7:15 am INDICATION: Signs/Symptoms:s/p IR embolization of splenic artery pseudoaneurysm. COMPARISON: CT abdomen and pelvis on 05/17/2023. ACCESSION NUMBER(S): [id number] ORDERING CLINICIAN: SANAZ TAYLOR TECHNIQUE: Contiguous [address] images were acquired through the abdomen and pelvis before and after administration of 93 mL of Omnipaque 350 intravenous contrast. Postcontrast images were obtained in both early arterial and delayed phase images. Sagittal and coronal images were reconstructed. Maximum intensity projection and three dimensional images were constructed at separate workstation. FINDINGS: VASCULAR FINDINGS: Abdominal aorta is normal in caliber without evidence of aneurysmal dilatation. No evidence of aortic dissection. Mild atherosclerotic calcifications of the abdominal its branching vessels. Celiac axis, superior mesenteric artery, inferior mesenteric artery, and bilateral single renal arteries are patent without any significant narrowing. Celiac axis demonstrates a normal branching pattern. Bilateral common iliac arteries, internal and external iliac arteries, common femoral arteries, and the proximal branches including superficial femoral and profunda femoris arteries are patent without any significant narrowing. Mild atherosclerotic calcifications bilateral common, internal, and external iliac arteries. Interval postoperative changes from coil embolization of splenic artery pseudoaneurysm. No extravasation of contrast to suggest active hemorrhage. Pseudoaneurysm measures approximately 7.3 x 4.8 cm in the transaxial dimension (series 601, image 108), similar to prior exams. Heart is within normal limits of size. No evidence of pericardial effusion. ---- ABDOMEN & PELVIS: LIVER: Within normal limits. BILE DUCTS: Nondilated. GALLBLADDER: No evidence of calcified gallstones or wall thickening. PANCREAS: Postsurgical changes from pancreatic tail resection with redemonstration of large splenic artery pseudoaneurysm, measuring approximately 7.3 x 4.8 cm in the transaxial dimension, similar to prior exam. Remaining pancreas is normal in appearance. 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 ADRENALS: Within normal limits. KIDNEYS, URETERS, URINARY BLADDER: Symmetric bilateral renal enhancement. Multiple hypodense lesions throughout the bilateral kidneys, similar to prior exam, favored to represent simple renal cysts. No evidence of hydronephrosis. Bladder is unremarkable. BOWEL: No evidence of abnormal dilatation or obstruction of the small or large bowel. No evidence of pneumoperitoneum. Positive oral contrast visualized throughout the large bowel. REPRODUCTIVE ORGANS: Unremarkable. PERITONEUM / RETROPERITONEUM / LYMPH NODES: No evidence of any free fluid. No evidence of any significantly enlarged intra-abdominal or pelvic lymph nodes. ABDOMINAL WALL: Multiple small air foci and mild edema/fat stranding within the right groin soft tissues, likely postoperative in nature. Abdominal wall soft tissues are otherwise unremarkable. LOWER CHEST: Mild bibasilar atelectasis. Lung bases are otherwise unremarkable without evidence of focal pulmonary consolidation, pleural effusion, or pneumothorax. BONES: No evidence of suspicious lytic or blastic osseous lesions. IMPRESSION: 1. 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 Pseudoaneurysm measures approximately 7.3 x 4.8 cm, similar to prior exam. 2. 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 3. Additional chronic findings as above. I personally reviewed the images/study and I agree with the findings as stated. This study was interpreted at [place], [place]. MACRO: None Signed by: Garcia Torres 05/19/2023 7:40 AM Dictation workstation: [id number] [facility] Work Phone: CTA Abdominal vessels and Pe lvis vessels WO and W contrast IVOrdered By: Garcia Torres on 05-19-2023 [facility] Work Phone: CBC panel Auto (Bld)on 05-18 Erythrocyte distribution width (RBC) [Ratio] 14.3 % 11.5 - 14.5 % [facility] Hematocrit (Bld) [Volume fraction] 41.5 % 36.0 - 46.0 % [facility] Hemoglobin (Bld) [Mass/Vol] 13.3 g/dL 12.0 - 16.0 g/dL [facility] Interpretation and review of laboratory results Normal [facility] MCH (RBC) [Entitic mass] 27.5 pg 26.0 - 34.[address] [facility] MCHC (RBC) [Mass/Vol] 32.0 g/dL 32.0 - 36.0 g/dL [facility] MCV (RBC) [Entitic vol] 86 fL 80 - [address] [facility] Nucleated RBC/100 WBC (Bld) [Ratio] 0.0 % [facility] Platelets (Bld) [#/Vol] 195 10*3/uL [facility] RBC (Bld) [#/Vol] 4.83 10*6/uL [facility] WBC (Bld) [#/Vol] 8.5 10*3/uL [facility] Erythrocyte distribution width (RBC) [Ratio] 14.3 % Normal 11.5-14.5 [facility] Comment on above: Performed By: #### 5 8410-2 #### GAYE Triplett ([id number]) [facility] ([facility]) [address] [place] [address] Hematocrit (Bld) [Volume fraction] 41.5 % Normal 36.0-46.0 [facility] Comment on above: Performed By: #### 5 8410-2 #### GAYE Triplett ([id number]) [facility] ([facility]) [id number] [place] [address] Hemoglobin (Bld) [Mass/Vol] 13.3 g/dL Normal 12.0-16.0 [facility] Comment on above: Performed By: #### 5 8410-2 #### GAYE Triplett ([id number]) [facility] ([facility]) [id number] [place] [address] MCH (RBC) [Entitic mass] 27.5 pg Normal 26.0-34.0 [facility] Comment on above: Performed By: #### 5 8410-2 #### GAYE Triplett ([id number]) [facility] ([facility]) [id number] [place] [address]88 MCHC (RBC) [Mass/Vol] 32.0 g/dL Normal 32.0-36.0 [facility] Comment on above: Performed By: #### 5 8410-2 #### GAYE Triplett ([id number]) [facility] ([facility]) [id number] [place] [address] 12986 MCV (RBC) [Entitic vol] 86 fL Normal 80-100 [facility] Comment on above: Performed By: #### 5 8410-2 #### GAYE Triplett ([id number]) [facility] ([facility]) [address] [place] [address] 24519 Nucleated RBC/100 WBC (Bld) [Ratio] 0.0 /100 WBCs Normal 0.0-0.0 [facility] Comment on above: Performed By: #### 5 8410-2 #### GAYE Triplett ([id number]) [facility] ([facility]) [id number] [place] [address] Platelets (Bld) [#/Vol] 195 x10*3/uL Normal 150-450 [facility] Comment on above: Performed By: #### 5 8410-2 #### GAYE Triplett ([id number]) [facility] ([facility]) [id number] [place] [address] 12082 RBC (Bld) [#/Vol] 4.83 x10*6/uL Normal 4.00-5.20 [facility] Comment on above: Performed By: #### 5 8410-2 #### GAYE Triplett ([id number]) [facility] ([facility]) [id number] [place] [address]1882 WBC (Bld) [#/Vol] 8.5 x10*3/uL Normal 4.4-11.3 [facility] Comment on above: Performed By: #### 5 8410-2 #### GAYE Triplett ([id number]) [facility] ([facility]) [id number] [place], [place] [id number] CT ANGIO ABDOMEN PELVIS W AN D/OR WO IV IV CONTRASTon 05-18-2023 CT ANGIO ABDOMEN PELVIS W AND/OR WO IV IV CONTRAST Interpreted By: Garcia Torres and Baker Zachary STUDY: CT ANGIO ABDOMEN PELVIS W AND/OR WO IV IV CONTRAST; 05/18/2023 7:15 am INDICATION: Signs/Symptoms:s/p IR embolization of splenic artery pseudoaneurysm. COMPARISON: CT abdomen and pelvis on 05/17/2023. ACCESSION NUMBER(S): [id number] ORDERING CLINICIAN: SANAZ TAYLOR TECHNIQUE: Contiguous [address] images were acquired through the abdomen and pelvis before and after administration of 93 mL of Omnipaque 350 intravenous contrast. Postcontrast images were obtained in both early arterial and delayed phase images. Sagittal and coronal images were reconstructed. Maximum intensity projection and three dimensional images were constructed at separate workstation. FINDINGS: VASCULAR FINDINGS: Abdominal aorta is normal in caliber without evidence of aneurysmal dilatation. No evidence of aortic dissection. Mild atherosclerotic calcifications of the abdominal its branching vessels. Celiac axis, superior mesenteric artery, inferior mesenteric artery, and bilateral single renal arteries are patent without any significant narrowing. Celiac axis demonstrates a normal branching pattern. Bilateral common iliac arteries, internal and external iliac arteries, common femoral arteries, and the proximal branches including superficial femoral and profunda femoris arteries are patent without any significant narrowing. Mild atherosclerotic calcifications bilateral common, internal, and external iliac arteries. Interval postoperative changes from coil embolization of splenic artery pseudoaneurysm. No extravasation of contrast to suggest active hemorrhage. Pseudoaneurysm measures approximately 7.3 x 4.8 cm in the transaxial dimension (series 601, image 108), similar to prior exams. Heart is within normal limits of size. No evidence of pericardial effusion. ---- ABDOMEN & PELVIS: LIVER: Within normal limits. BILE DUCTS: Nondilated. GALLBLADDER: No evidence of calcified gallstones or wall thickening. PANCREAS: Postsurgical changes from pancreatic tail resection with redemonstration of large splenic artery pseudoaneurysm, measuring approximately 7.3 x 4.8 cm in the transaxial dimension, similar to prior exam. Remaining pancreas is normal in appearance. 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 ADRENALS: Within normal limits. KIDNEYS, URETERS, URINARY BLADDER: Symmetric bilateral renal enhancement. Multiple hypodense lesions throughout the bilateral kidneys, similar to prior exam, favored to represent simple renal cysts. No evidence of hydronephrosis. Bladder is unremarkable. BOWEL: No evidence of abnormal dilatation or obstruction of the small or large bowel. No evidence of pneumoperitoneum. Positive oral contrast visualized throughout the large bowel. REPRODUCTIVE ORGANS: Unremarkable. PERITONEUM / RETROPERITONEUM / LYMPH NODES: No evidence of any free fluid. No evidence of any significantly enlarged intra-abdominal or pelvic lymph nodes. ABDOMINAL WALL: Multiple small air foci and mild edema/fat stranding within the right groin soft tissues, likely postoperative in nature. Abdominal wall soft tissues are otherwise unremarkable. LOWER CHEST: Mild bibasilar atelectasis. Lung bases are otherwise unremarkable without evidence of focal pulmonary consolidation, pleural effusion, or pneumothorax. BONES: No evidence of suspicious lytic or blastic osseous lesions. IMPRESSION: 1. 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 Pseudoaneurysm measures approximately 7.3 x 4.8 cm, similar to prior exam. 2. 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 3. Additional chronic findings as above. I personally reviewed the images/study and I agree with the findings as stated. This study was interpreted at [facility], [place], [place]. MACRO: None Signed by: Garcia Torres 05/19/2023 7:40 AM Dictation workstation: [id number] Normal [facility] Comment on above: Order Comment: CTA T RIPLE PHASE please CTA Abdominal vessels and Pe lvis vessels WO and W contrast Manny 05-18-2023 Radiology Study observation (narrative) [facility] Work Phone: ECG 12 leadOrdered By: Maryann Garsia on 05-18-2023 Atrial Rate [address] [facility] Work Phone: P [place] [address] [facility] Work Phone: P Offset [address] [facility] Work Phone: P Onset [address] [facility] Work Phone: MO Interval [address] [facility] Work Phone: Q Onset [address] [facility] Work Phone: QRS Count [address] [facility] Work Phone: QRS Duration [address] [facility] Work Phone: QT Interval [address] [facility] Work Phone: QTC Calculation(Bazett) 438 [facility] Work Phone: QTC Fredericia [address] [facility] Work Phone: R [place] [address] [facility] Work Phone: T [place] [address] [facility] Work Phone: T Offset [address] [facility] Work Phone: Ventricular Rate 62 BPM [facility] Work Phone: [facility] Work Phone: ECG 12 leadon 05-18-2023 Normal sinus rhythm Cannot rule out Inferior infarct , age undetermined Abnormal ECG No previous ECGs available See ED provider note for full interpretation and clinical correlation Confirmed by Maryann Garsia ([id number]) on 05/18/2023 12:07:51 AM MUSE Maryann Garsia, [employer]IDENTIAL [employer]STATE ASSISTANT - 05/18/2023 Normal sinus rhythm Cannot rule out Inferior infarct , age undetermined Abnormal ECG No previous ECGs available See ED provider note for full interpretation and clinical correlation Confirmed by Maryann Garsia ([id number]) on 05/18/2023 12:07:[address] [facility] Work Phone: IR ANGIOGRAMon 05-18-2023 IR ANGIOGRAM Interpreted By: Jordan Thurston, STUDY: IR ANGIOGRAM; 05/18/2023 4:02 am INDICATION: Signs/Symptoms:IR angiogram with possible intervention/ embolization of suspected splenic artery pseudoaneurysm. COMPARISON: Outside hospital CTA imaging from May 15, 2023 ACCESSION NUMBER(S): [id number] ORDERING CLINICIAN: SANAZ TAYLOR TECHNIQUE: INTERVENTIONALIST(S ): MD Gio Barlow DO CONSENT: The patient/patient's POA/next of kin was informed of the nature of the proposed procedure. The purposes, alternatives, risks, and benefits were explained and discussed. All questions were answered and consent was obtained. RADIATION EXPOSURE: Fluoroscopy time: 25.5 min Dose: 402.76 mGy Dose Area Product (DAP): 88661 mGy*cm^2 SEDATION: Moderate conscious IV sedation services (supervision of administration, induction, and maintenance) were provided by the physician performing the procedure with intravenous fentanyl 150mcg and versed 1mg from 0209 hours - 0419 hours.. The physician was assisted by an independent trained observer, an interventional radiology nurse, in the continuous monitoring of patient level of consciousness and physiologic status. MEDICATION: None. TIME OUT: A time out was performed immediately prior to procedure start with the interventional team, correctly identifying the patient name, date of , MRN, procedure, anatomy (including marking of site and side), patient position, procedure consent form, relevant laboratory and imaging test results, antibiotic administration, safety precautions, and procedure-specific equipment needs. COMPLICATIONS: No immediate adverse events identified. FINDINGS: The patient was placed supine on the angiographic table in the right groin was prepped and draped in the usual sterile fashion. Local anesthesia was achieved 1% lidocaine. Using sonographic guidance, a 21 gauge micropuncture needle was used to access the right common femoral artery and a microwire was placed. The needle was exchanged for a 4 [place] Islander micropuncture sheath with its match dilator. The inner dilator and wire removed and a 0.035 inch wire was advanced. The 4 [place]er micropuncture sheath was exchanged for a 5 [place] hemostatic sheath, which was placed over the wire. Contrast injection was performed through the groin sheath with imaging in the MORALES position. A 5 [place] Islander SOS Omni catheter was prepared and advanced over a wire and formed in the distal abdominal aorta. This was used to cannulate the celiac artery. The wire was removed and contrast injection was performed with fluoroscopic as well as DSA imaging obtained over the abdomen. Subsequently, using the 5 [place] Islander SOS Omni catheter as a base, a Renegade microcatheter was advanced over a microwire and used to cannulate the splenic artery. Contrast injection was performed with DSA imaging over the left hemiabdomen. The wire was replaced and the microcatheter was taken into a large pseudoaneurysms. The microwire was removed and catheter tip location was confirmed with a contrast injection. Subsequently, coil embolization was carried out of the pseudoaneurysm and across the supplying proximal splenic artery. Repeat contrast injection through the microcatheter with the tip in the proximal splenic artery confirms non filling of the splenic artery and the pseudoaneurysm. The microcatheter was removed and repeat contrast injection through the Sos catheter with its tip in the celiac artery was performed with DSA imaging in multiple projections. Subsequently, the Sos catheter was disengaged from the celiac artery and used to cannulate the SMA origin. Repeat contrast injection was performed with DSA imaging over the abdomen. The catheters and wires were removed. After removal of the right groin sheath, hemostasis was achieved with an Angio-Seal closure device. A sterile dressing was applied. The patient tolerated the procedure without complication. Contrast injection through the 5 [place]er right groin sheath with imaging over the right groin demonstrates the hemostatic sheath to be within the right common femoral artery. This vessel is widely patent and without contraindication to the use of a closure device. 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 The celiac artery and its major branches are patent. There is visualization of the splenic artery only to its proximal 3rd. Contrast injection with the microcatheter in the proximal splenic artery demonstrates opacification of the splenic artery with slow filling of a large pseudoaneurysm in the left hemiabdomen. Follow-up interval placement of the microcatheter tip within the pseudoaneurysm is (more content not included)... Normal [facility] Study Interpretation of outs noa studyon 05-18-2023 These images are not reportable by radiology and will not be interpreted by Radiologists. IMAGING .Auto Diffon 05-17-2023 Basophil, Absolute 0.0 10 3/mcL Normal 0.0-0.3 [facility] ([place]) Comment on above: Performed By: #### H FP, CBC, BMP, ADIFF, GFR, ANEU, MG #### [address] [address] Basophils/100 WBC (Bld) 0.4 % Normal 0.0-2.5 [facility] ([place]) Comment on above: Performed By: #### H FP, CBC, BMP, ADIFF, GFR, ANEU, MG #### [address] [address] Eosinophil, Absolute 0.1 10 3/mcL Normal 0.0-0.7 [facility] ([place]) Comment on above: Performed By: #### H FP, CBC, BMP, ADIFF, GFR, ANEU, MG #### [address] [address] Eosinophils/100 WBC (Bld) 1.0 % Normal 0.0-6.0 [facility] ([place]) Comment on above: Performed By: #### H FP, CBC, BMP, ADIFF, GFR, ANEU, MG #### [address] [address] Lymphocyte, Absolute 1.5 10 3/mcL Normal 0.9-4.3 [facility] ([place]) Comment on above: Performed By: #### H FP, CBC, BMP, ADIFF, GFR, ANEU, MG #### [address] [address] Lymphocytes/100 WBC (Bld) 26.6 % Normal 20.0-40.0 [facility] ([place]) Comment on above: Performed By: #### H FP, CBC, BMP, ADIFF, GFR, ANEU, MG #### [address] [address] Monocyte, Absolute 0.5 10 3/mcL Normal 0.1-1.4 [facility] ([place]) Comment on above: Performed By: #### H FP, CBC, BMP, ADIFF, GFR, ANEU, MG #### [address] [address] Monocytes/100 WBC (Bld) 9.2 % Normal 2.0-13.0 [facility] ([place]) Comment on above: Performed By: #### H FP, CBC, BMP, ADIFF, GFR, ANEU, MG #### [address] [address] Neutrophils/100 WBC (Bld) 62.8 % Normal 50.0-75.0 [facility] ([place]) Comment on above: Performed By: #### H FP, CBC, BMP, ADIFF, GFR, ANEU, MG #### [address] [address] .GFRon 05-17-2023 GFR Non- >60 Normal [facility] ([place]) Comment on above: Result Comment: GFR Population mean for , Non- Americans Ages 20-29 = 116 mL/min/1.73 sq.m. Ages 30-39 = 107 mL/min/1.73 sq.m. Ages 40-49 = 99 mL/min/1.73 sq.m. Ages 50-59 = 93 mL/min/1.73 sq.m. Ages 60-69 = 85 mL/min/1.73 sq.m. Ages 70+ = 75 mL/min/1.73 sq.m. Chronic Kidney Disease: Less than 60 mL/min/1.73 square meters End Stage Renal Disease: Less than 15 mL/min/1.73 square meters Performed By: #### L IP, GFR, ADIFF, ANEU, CBC, CMP, MDW #### [address] [address] GFR >60 Normal [facility] ([place]) Comment on above: Result Comment: GFR Population mean for , Non- Americans Ages 20-29 = 116 mL/min/1.73 sq.m. Ages 30-39 = 107 mL/min/1.73 sq.m. Ages 40-49 = 99 mL/min/1.73 sq.m. Ages 50-59 = 93 mL/min/1.73 sq.m. Ages 60-69 = 85 mL/min/1.73 sq.m. Ages 70+ = 75 mL/min/1.73 sq.m. Chronic Kidney Disease: Less than 60 mL/min/1.73 square meters End Stage Renal Disease: Less than 15 mL/min/1.73 square meters Performed By: #### L IP, GFR, ADIFF, ANEU, CBC, CMP, MDW #### [address] [address] .NEUABSon 05-17-2023 Neutrophil, Absolute 3.7 10 3/mcL Normal 2.3-8.1 [facility] ([place]) Comment on above: Performed By: #### H FP, CBC, BMP, ADIFF, GFR, ANEU, MG #### [address] [address] BMPon 05-17-2023 BUN/Creatinine Ratio 19.0 ratio Normal 10.0-22.0 [facility] ([place]) Comment on above: Order Comment: Quant ity not sufficient Performed By: #### L IP, GFR, ADIFF, ANEU, CBC, CMP, MDW #### [address] [address] Calcium [Mass/Vol] 9.6 mg/dL Normal 8.7-10.4 [facility] ([place]) Comment on above: Order Comment: Quant ity not sufficient Performed By: #### L IP, GFR, ADIFF, ANEU, CBC, CMP, MDW #### [address] [address] Chloride [Moles/Vol] 109 mmol/L Normal 98-110 [facility] ([place]) Comment on above: Order Comment: Quant ity not sufficient Performed By: #### L IP, GFR, ADIFF, ANEU, CBC, CMP, MDW #### [address] [address] CO2 [Moles/Vol] 30 mmol/L Normal 22-32 [facility] ([place]) Comment on above: Order Comment: Quant ity not sufficient Performed By: #### L IP, GFR, ADIFF, ANEU, CBC, CMP, MDW #### [address] [address] Creatinine [Mass/Vol] 0.63 mg/dL Normal 0.50-1.20 [facility] ([place]) Comment on above: Order Comment: Quant ity not sufficient Performed By: #### L IP, GFR, ADIFF, ANEU, CBC, CMP, MDW #### [address] [address] Electrolyte Balance 2.0 mEq/L Low 4.0-15.0 [facility] ([place]) Comment on above: Order Comment: Quant ity not sufficient Performed By: #### L IP, GFR, ADIFF, ANEU, CBC, CMP, MDW #### [place] [id number] Glucose [Mass/Vol] 127 mg/dL High 82-115 [facility] ([place]) Comment on above: Order Comment: Quant ity not sufficient Performed By: #### L IP, GFR, ADIFF, ANEU, CBC, CMP, MDW #### [address] [address] Potassium [Moles/Vol] 5.1 mmol/L High 3.5-5.0 [facility] ([place]) Comment on above: Order Comment: Quant ity not sufficient Performed By: #### L IP, GFR, ADIFF, ANEU, CBC, CMP, MDW #### [place] [id number] Sodium [Moles/Vol] 141 mmol/L Normal 136-145 [facility] ([place]) Comment on above: Order Comment: Quant ity not sufficient Performed By: #### L IP, GFR, ADIFF, ANEU, CBC, CMP, MDW #### [address] [address] Urea nitrogen [Mass/Vol] 12.0 mg/dL Normal 8.0-22.0 [facility] ([place]) Comment on above: Order Comment: Quant ity not sufficient Performed By: #### L IP, GFR, ADIFF, ANEU, CBC, CMP, MDW #### [address] [address] Blood type and Indirect anti body screen panel (Bld)on 05-17-2023 ABO group Nom (Bld) A [facility] Blood group antibody screen Ql Negative [facility] D Ag Ql (Bld) Positive [facility] Comment on above: 2nd ABO test require d. Order and Collect VERAB [facility] ABO group Nom (Bld) A Normal [facility] Comment on above: Performed By: #### 3 4532-2 #### GAYE Triplett ([id number]) [facility] ([facility]) [id number] [place] [address] Blood group antibody screen Ql Negative [facility] Comment on above: Performed By: #### 3 4532-2 #### GAYE Triplett ([id number]) [facility] ([facility]) [id number] [place] [address] D Ag Ql (Bld) Positive [facility] Comment on above: Result Comment: 2nd ABO test required. Order and Collect VERAB Performed By: #### 3 4532-2 #### GAYE Triplett ([id number]) [facility] ([facility]) [id number] [place] [address] CBCon 05-17-2023 Erythrocyte distribution width (RBC) [Ratio] 14.8 % Normal 11.5-15.5 [facility] ([place]) Comment on above: Performed By: #### H FP, CBC, BMP, ADIFF, GFR, ANEU, MG #### [address] [address] Hematocrit (Bld) [Volume fraction] 39.8 % Normal 34.0-46.0 [facility] ([place]) Comment on above: Performed By: #### H FP, CBC, BMP, ADIFF, GFR, ANEU, MG #### [address] [address] Hgb 13.1 G/dL Normal 12.0-16.0 [facility] ([place]) Comment on above: Performed By: #### H FP, CBC, BMP, ADIFF, GFR, ANEU, MG #### [place] [address] MCH (RBC) [Entitic mass] 27.8 pg Normal 27.0-33.0 [facility] ([place]) Comment on above: Performed By: #### H FP, CBC, BMP, ADIFF, GFR, ANEU, MG #### [place] [address] MCHC 32.9 G/dL Normal 32.0-36.0 [facility] ([place]) Comment on above: Performed By: #### H FP, CBC, BMP, ADIFF, GFR, ANEU, MG #### [place] [address] MCV (RBC) [Entitic vol] 84.4 fL Normal 80.0-99.0 [facility] ([place]) Comment on above: Performed By: #### H FP, CBC, BMP, ADIFF, GFR, ANEU, MG #### [place] [address] Platelet 170 10 3/mcL Normal 150-450 [facility] ([place]) Comment on above: Performed By: #### H FP, CBC, BMP, ADIFF, GFR, ANEU, MG #### [place] [address] Platelet mean volume (Bld) [Entitic vol] 10.4 fL Normal 6.6-10.5 [facility] ([place]) Comment on above: Performed By: #### H FP, CBC, BMP, ADIFF, GFR, ANEU, MG #### [place] [address] RBC 4.71 10 6/mcL Normal 4.10-5.30 [facility] ([place]) Comment on above: Performed By: #### H FP, CBC, BMP, ADIFF, GFR, ANEU, MG #### [place] [address] WBC 5.8 10 3/mcL Normal 4.5-10.8 [facility] ([place]) Comment on above: Performed By: #### H FP, CBC, BMP, ADIFF, GFR, ANEU, MG #### [place] [address] CBC W Auto Differential pane l (Bld)on 05-17-2023 Basophils (Bld) [#/Vol] 0.03 10*3/uL [facility] Basophils/100 WBC (Bld) 0.5 % 0.0 - 2.0 % [facility] Eosinophils (Bld) [#/Vol] 0.06 10*3/uL [facility] Eosinophils/100 WBC (Bld) 1.0 % 0.0 - 6.0 % [facility] Erythrocyte distribution width (RBC) [Ratio] 14.2 % 11.5 - 14.5 % [facility] Hematocrit (Bld) [Volume fraction] 40.4 % 36.0 - 46.0 % [facility] Hemoglobin (Bld) [Mass/Vol] 13.7 g/dL 12.0 - 16.0 g/dL [facility] Immature granulocytes (Bld) [#/Vol] 0.02 10*3/uL [facility] Immature granulocytes/100 WBC (Bld) 0.3 % 0.0 - 0.9 % [facility] Comment on above: Immature Granulocyte Count (IG) includes promyelocytes, myelocytes and metamyelocytes but does not include bands. Percent differential counts (%) should be interpreted in the context of the absolute cell counts (cells/UL). Lymphocytes (Bld) [#/Vol] 1.54 10*3/uL [facility] Lymphocytes/100 WBC (Bld) 26.8 % 13.0 - 44.0 % [facility] MCH (RBC) [Entitic mass] 27.7 pg 26.0 - 34.[address] [facility] MCHC (RBC) [Mass/Vol] 33.9 g/dL 32.0 - 36.0 g/dL [facility] MCV (RBC) [Entitic vol] 82 fL 80 - [address] [facility] Monocytes (Bld) [#/Vol] 0.55 10*3/uL [facility] Monocytes/100 WBC (Bld) 9.6 % 2.0 - 10.0 % [facility] Neutrophils (Bld) [#/Vol] 3.54 10*3/uL [facility] Comment on above: Percent differential counts (%) should be interpreted in the context of the absolute cell counts (cells/uL). Neutrophils/100 WBC (Bld) 61.8 % 40.0 - 80.0 % [facility] Nucleated RBC/100 WBC (Bld) [Ratio] 0.0 % [facility] Platelets (Bld) [#/Vol] 194 10*3/uL [facility] RBC (Bld) [#/Vol] 4.95 10*6/uL [facility] WBC (Bld) [#/Vol] 5.7 10*3/uL [facility] Basophils (Bld) [#/Vol] 0.03 x10*3/uL Normal 0.00-0.10 [facility] Comment on above: Performed By: #### 5 7021-8 #### GAYE Triplett ([id number]) [facility] ([facility]) [id number] [place] [address] 41103 Basophils/100 WBC (Bld) 0.5 % Normal 0.0-2.0 [facility] Comment on above: Performed By: #### 5 7021-8 #### GAYE EVANSMOTZPATRICIA L ([id number]) [facility] ([facility]) [id number] [place] [address] 14058 Eosinophils (Bld) [#/Vol] 0.06 x10*3/uL Normal 0.00-0.40 [facility] Comment on above: Performed By: #### 5 7021-8 #### GAYE EVANSMOERIK L ([id number]) [facility] ([facility]) [id number] [place] [address] 72003 Eosinophils/100 WBC (Bld) 1.0 % Normal 0.0-6.0 [facility] Comment on above: Performed By: #### 5 7021-8 #### GAYE COLLINS L ([id number]) [facility] ([facility]) [address] [place] [address] 52951 Erythrocyte distribution width (RBC) [Ratio] 14.2 % Normal 11.5-14.5 [facility] Comment on above: Performed By: #### 5 7021-8 #### GAYE Triplett ([id number]) [facility] ([facility]) [address] [place] [address] 35378 Hematocrit (Bld) [Volume fraction] 40.4 % Normal 36.0-46.0 [facility] Comment on above: Performed By: #### 5 7021-8 #### GAYE Triplett ([id number]) [facility] ([facility]) [address] [place] [address] 62155 Hemoglobin (Bld) [Mass/Vol] 13.7 g/dL Normal 12.0-16.0 [facility] Comment on above: Performed By: #### 5 7021-8 #### GAYE Triplett ([id number]) [facility] ([facility]) [address] [place] [address] 17971 Immature granulocytes (Bld) [#/Vol] 0.02 x10*3/uL Normal 0.00-0.50 [facility] Comment on above: Performed By: #### 5 7021-8 #### GAYE Triplett ([id number]) [facility] ([facility]) [address] [place] [address] 55683 Immature granulocytes/100 WBC (Bld) 0.3 % Normal 0.0-0.9 [facility] Comment on above: Result Comment: Pati ture Granulocyte Count (IG) includes promyelocytes, myelocytes and metamyelocytes but does not include bands. Percent differential counts (%) should be interpreted in the context of the absolute cell counts (cells/UL). Performed By: #### 5 7021-8 #### GAYE Triplett ([id number]) [facility] ([facility]) [address] [place] [address] 51869 Lymphocytes (Bld) [#/Vol] 1.54 x10*3/uL Normal 0.80-3.00 [facility] Comment on above: Performed By: #### 5 7021-8 #### GAYE Triplett ([id number]) [facility] ([facility]) [id number] [place] [address] 27774 Lymphocytes/100 WBC (Bld) 26.8 % Normal 13.0-44.0 [facility] Comment on above: Performed By: #### 5 7021-8 #### GAYE COLLINS L ([id number]) [facility] ([facility]) [address] [place] [address] 89673 MCH (RBC) [Entitic mass] 27.7 pg Normal 26.0-34.0 [facility] Comment on above: Performed By: #### 5 7021-8 #### GAYE Triplett ([id number]) [facility] ([facility]) [address] [place] [address] 85804 MCHC (RBC) [Mass/Vol] 33.9 g/dL Normal 32.0-36.0 [facility] Comment on above: Performed By: #### 5 7021-8 #### GAYE Triplett ([id number]) [facility] ([facility]) [address] [place] [address] 23037 MCV (RBC) [Entitic vol] 82 fL Normal 80-100 [facility] Comment on above: Performed By: #### 5 7021-8 #### GAYE COLLINS L ([id number]) [facility] ([facility]) [address] [place] [address] 09144 Monocytes (Bld) [#/Vol] 0.55 x10*3/uL Normal 0.05-0.80 [facility] Comment on above: Performed By: #### 5 7021-8 #### GAYE COLLINS L ([id number]) [facility] ([facility]) [address] [place] [address] 82529 Monocytes/100 WBC (Bld) 9.6 % Normal 2.0-10.0 [facility] Comment on above: Performed By: #### 5 7021-8 #### GAYE Triplett ([id number]) [facility] ([facility]) [address] [place] [address] Neutrophils (Bld) [#/Vol] 3.54 x10*3/uL Normal 1.60-5.50 [facility] Comment on above: Result Comment: Perc ent differential counts (%) should be interpreted in the context of the absolute cell counts (cells/uL). Performed By: #### 5 7021-8 #### GAYE Triplett ([id number]) [facility] ([facility]) [address] [place] [address] Neutrophils/100 WBC (Bld) 61.8 % Normal 40.0-80.0 [facility] Comment on above: Performed By: #### 5 7021-8 #### GAYE COLLINS L ([id number]) [facility] ([facility]) [address] [place] [address] Nucleated RBC/100 WBC (Bld) [Ratio] 0.0 /100 WBCs Normal 0.0-0.0 [facility] Comment on above: Performed By: #### 5 7021-8 #### GAYE COLLINS L ([id number]) [facility] ([facility]) [address] [place] [address] Platelets (Bld) [#/Vol] 194 x10*3/uL Normal 150-450 [facility] Comment on above: Performed By: #### 5 7021-8 #### GAYE COLLINS L ([id number]) [facility] ([facility]) [address] [place] [address] RBC (Bld) [#/Vol] 4.95 x10*6/uL Normal 4.00-5.20 [facility] Comment on above: Performed By: #### 5 7021-8 #### GAYE EVANSMOTZER L ([id number]) [facility] ([facility]) [address] [place] [address] WBC (Bld) [#/Vol] 5.7 x10*3/uL Normal 4.4-11.3 [facility] Comment on above: Performed By: #### 5 7021-8 #### GAYE Triplett ([id number]) [facility] ([facility]) [address] [place] [address] CT ABDOMEN PELVIS WO IV CONT RASTon 05-17-2023 CT ABDOMEN PELVIS WO IV CONTRAST STUDY: CT Abdomen and Pelvis without IV Contrast; 05/17/2023 at 10:41 PM INDICATION: 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 COMPARISON: None available. TECHNIQUE: Contiguous axial images were obtained at 3 mm slice thickness through the abdomen and pelvis. Coronal and sagittal reconstructions at 3 mm slice thickness were performed. Automated mA/kV exposure control was utilized and patient examination was performed in strict accordance with principles of ALARA. FINDINGS: The lung bases are normal. The unenhanced liver, spleen, kidneys, adrenals, and pancreas are normal. Sludge filling gallbladder is seen. A 7.5 x 5 cm heterogeneous low-density mass of the tail the pancreas is seen. Contrast is present within the colon. No free fluid, free air, mesenteric inflammatory changes, or abnormal soft tissue masses are seen. Soft tissue masses can have the same appearance as unopacified loops of bowel. The appendix is normal. The abdominal aorta is of normal caliber. The urinary bladder is without masses. No acute fracture or osseous lesion. IMPRESSION: Hematoma of the tail of the pancreas measuring approximately 7.5 x 5 cm. In the differential diagnosis would also be an abscess however less likely. Signed by Kofi Tierney MD [facility] CT Abdomen WO contraston Hematoma of the tail of the pancreas measuring approximately 7.5 x 5 cm. In the differential diagnosis would also be an abscess however less likely. 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 COMPARISON: None available. TECHNIQUE: Contiguous axial images were obtained at 3 mm slice thickness through the abdomen and pelvis. Coronal and sagittal reconstructions at 3 mm slice thickness were performed. Automated mA/kV exposure control was utilized and patient examination was performed in strict accordance with principles of ALARA. FINDINGS: The lung bases are normal. The unenhanced liver, spleen, kidneys, adrenals, and pancreas are normal. Sludge filling gallbladder is seen. A 7.5 x 5 cm heterogeneous low-density mass of the tail the pancreas is seen. Contrast is present within the colon. No free fluid, free air, mesenteric inflammatory changes, or abnormal soft tissue masses are seen. Soft tissue masses can have the same appearance as unopacified loops of bowel. The appendix is normal. The abdominal aorta is of normal caliber. The urinary bladder is without masses. No acute fracture or osseous lesion. 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 COMPARISON: None available. TECHNIQUE: Contiguous axial images were obtained at 3 mm slice thickness through the abdomen and pelvis. Coronal and sagittal reconstructions at 3 mm slice thickness were performed. Automated mA/kV exposure control was utilized and patient examination was performed in strict accordance with principles of ALARA. FINDINGS: The lung bases are normal. The unenhanced liver, spleen, kidneys, adrenals, and pancreas are normal. Sludge filling gallbladder is seen. A 7.5 x 5 cm heterogeneous low-density mass of the tail the pancreas is seen. Contrast is present within the colon. No free fluid, free air, mesenteric inflammatory changes, or abnormal soft tissue masses are seen. Soft tissue masses can have the same appearance as unopacified loops of bowel. The appendix is normal. The abdominal aorta is of normal caliber. The urinary bladder is without masses. No acute fracture or osseous lesion. IMPRESSION: Hematoma of the tail of the pancreas measuring approximately 7.5 x 5 cm. In the differential diagnosis would also be an abscess however less likely. Signed by Kofi Tierney MD [facility] Work Phone: Radiology Study observation (narrative) [facility] Work Phone: CT Abdomen WO contrastOrdere d By: Kofi Tierney on 05-17-2023 [facility] Work Phone: CT INTERPRETATION OF OUTSIDE FILMSon 05-17-2023 CT INTERPRETATION OF OUTSIDE FILMS These images are not reportable by radiology and will not be interpreted by Radiologists. Normal [facility] Comprehensive metabolic 2000 panelon 05-17-2023 Albumin BCP dye [Mass/Vol] 4.1 g/dL 3.4 - 5.0 g/dL [facility] ALP [Catalytic activity/Vol] 80 U/L 33 - 136 U/L [facility] ALT With P-5'-P [Catalytic activity/Vol] 12 U/L 7 - 45 U/L [facility] Comment on above: Patients treated wit h Sulfasalazine may generate falsely decreased results for ALT. Anion gap [Moles/Vol] 14 mmol/L 10 - 2 0 mmol/L [facility] AST With P-5'-P [Catalytic activity/Vol] 14 U/L 9 - 39 U/L [facility] Bilirubin [Mass/Vol] 1.0 mg/dL 0.0 - 1 .2 mg/dL [facility] Calcium [Mass/Vol] 10.0 mg/dL 8.6 - 10. 6 mg/dL [facility] Chloride [Moles/Vol] 108 mmol/L High 98 - 10 7 mmol/L [facility] CO2 [Moles/Vol] 27 mmol/L 21 - 32 mmol/L [facility] Creatinine [Mass/Vol] 0.67 mg/dL 0.50 - 1.05 mg/dL [facility] GFR/1.73 sq M.predicted MDRD (S/P/Bld) [Vol rate/Area] - PINF [facility] Comment on above: Calculations of dorothea mated GFR are performed using the 2020 CKD-EPI Study Refit equation without the race variable for the IDMS-Traceable creatinine methods. https://jasn.asnjournals.org/content//ASN.727087 5733 Glucose [Mass/Vol] 101 mg/dL High 74 - 99 mg/dL [facility] Interpretation and review of laboratory results Abnormal [facility] Potassium [Moles/Vol] 3.9 mmol/L 3.5 - 5.3 mmol/L [facility] Protein [Mass/Vol] 7.0 g/dL 6.4 - 8.2 g/dL [facility] Sodium [Moles/Vol] 145 mmol/L 136 - 145 mmol/L [facility] Urea nitrogen [Mass/Vol] 14 mg/dL 6 - 23 mg/dL [facility] Albumin BCP dye [Mass/Vol] 4.1 g/dL Normal 3.4-5.0 [facility] Comment on above: Performed By: #### 2 4323-8 #### GAYE Triplett ([id number]) [facility] ([facility]) [id number] [place] [address] 66956 ALP [Catalytic activity/Vol] 80 U/L Normal 33-136 [facility] Comment on above: Performed By: #### 2 4323-8 #### GAYE Triplett ([id number]) [facility] ([facility]) [address] [place] [address] 67532 ALT With P-5'-P [Catalytic activity/Vol] 12 U/L Normal 7-45 [facility] Comment on above: Result Comment: Nataliia ents treated with Sulfasalazine may generate falsely decreased results for ALT. Performed By: #### 2 4323-8 #### GAYE Triplett ([id number]) [facility] ([facility]) [id number] [place] [address] 73626 Anion gap [Moles/Vol] 14 mmol/L Normal 10-20 [facility] Comment on above: Performed By: #### 2 4323-8 #### GAYE Triplett ([id number]) [facility] ([facility]) [id number] [place] [address] 16578 AST With P-5'-P [Catalytic activity/Vol] 14 U/L Normal 9-39 [facility] Comment on above: Performed By: #### 2 4323-8 #### GAYE COLLINS L ([id number]) [facility] ([facility]) [id number] [place] [address] 91648 Bilirubin [Mass/Vol] 1.0 mg/dL Normal 0.0-1.2 [facility] Comment on above: Performed By: #### 2 4323-8 #### GAYE Triplett ([id number]) [facility] ([facility]) [address] [place] [address] Calcium [Mass/Vol] 10.0 mg/dL Normal 8.6-10.6 [facility] Comment on above: Performed By: #### 2 4323-8 #### GAYE Triplett ([id number]) [facility] ([facility]) [address] [place] [address] Chloride [Moles/Vol] 108 mmol/L High 98-107 [facility] Comment on above: Performed By: #### 2 4323-8 #### GAYE COLLINS L ([id number]) [facility] ([facility]) [address] [place] [address] CO2 [Moles/Vol] 27 mmol/L Normal 21-32 [facility] Comment on above: Performed By: #### 2 4323-8 #### GAYE Triplett ([id number]) [facility] ([facility]) [address] [place] [address] Creatinine [Mass/Vol] 0.67 mg/dL Normal 0.50-1.05 [facility] Comment on above: Performed By: #### 2 4323-8 #### GAYE COLLINS L ([id number]) [facility] ([facility]) [address] [place] [address] GFR/1.73 sq M.predicted MDRD (S/P/Bld) [Vol rate/Area] mL/min/{1.73_m2} Normal >60 [facility] Comment on above: Result Comment: Calc ulations of estimated GFR are performed using the 2020 CKD-EPI Study Refit equation without the race variable for the IDMS-Traceable creatinine methods. https://jasn.asnjournals.org/content//ASN.737616 1147 Performed By: #### 2 4323-8 #### GAEY Triplett ([id number]) [facility] ([facility]) [address] [place] [address] Glucose [Mass/Vol] 101 mg/dL High 74-99 [facility] Comment on above: Performed By: #### 2 4323-8 #### GAYE COLLINS L ([id number]) [facility] ([facility]) [id number] [place] [address] 48116 Potassium [Moles/Vol] 3.9 mmol/L Normal 3.5-5.3 [facility] Comment on above: Performed By: #### 2 4323-8 #### GAYE COLLINS L ([id number]) [facility] ([facility]) [id number] [place] [address] 12811 Protein [Mass/Vol] 7.0 g/dL Normal 6.4-8.2 [facility] Comment on above: Performed By: #### 2 4323-8 #### GAYE COLLINS L ([id number]) [facility] ([facility]) [address] [place] [address] 37353 Sodium [Moles/Vol] 145 mmol/L Normal 136-145 [facility] Comment on above: Performed By: #### 2 4323-8 #### GAYE COLLINS L ([id number]) [facility] ([facility]) [id number] [place] [address] 42971 Urea nitrogen [Mass/Vol] 14 mg/dL Normal 6-23 [facility] Comment on above: Performed By: #### 2 4323-8 #### GAYE COLLINS L ([id number]) [facility] ([facility]) [address] [place] [address] 42221 ECG 12-LEADon 05-17-2023 ECG 12-LEAD Ventricular Rate 62 Atrial Rate 62 P-R Interval 158 QRS Duration 86 Q-T Interval 432 QTC Calculation(Bazett) 438 P Dallas 24 R Dallas 9 T Dallas 59 QRS Count 10 Q Onset 223 P Onset 144 P Offset 207 T Offset 439 QTC Fredericia 437 Diagnosis Normal sinus rhythm Cannot rule out Inferior infarct , age undetermined Abnormal ECG No previous ECGs available See ED provider note for full interpretation and clinical correlation Confirmed by Maryann Garsia ([id number]) on 05/18/2023 12:07:51 AM Normal [facility] HFPon 05-17-2023 Bili Indirect 0.8 mg/dL Normal 0.1-10.0 [facility] ([place]) Comment on above: Performed By: #### L IP, GFR, ADIFF, ANEU, CBC, CMP, MDW #### [address] [address] Albumin Level 3.5 G/dL Normal 3.2-4.8 [facility] ([place]) Comment on above: Performed By: #### L IP, GFR, ADIFF, ANEU, CBC, CMP, MDW #### [address] [address] Albumin/Globulin [Mass ratio] 1.1 {ratio} Normal 0.9-1.6 [facility] ([place]) Comment on above: Performed By: #### L IP, GFR, ADIFF, ANEU, CBC, CMP, MDW #### [address] [address] ALP [Catalytic activity/Vol] 87 U/L Normal 38-126 [facility] ([place]) Comment on above: Performed By: #### L IP, GFR, ADIFF, ANEU, CBC, CMP, MDW #### [address] [address] ALT [Catalytic activity/Vol] 12 U/L Normal 10-49 [facility] ([place]) Comment on above: Performed By: #### L IP, GFR, ADIFF, ANEU, CBC, CMP, MDW #### [address] [address] AST [Catalytic activity/Vol] 17 U/L Normal 8-34 [facility] ([place]) Comment on above: Performed By: #### L IP, GFR, ADIFF, ANEU, CBC, CMP, MDW #### [address] [address] Bili Direct 0.3 mg/dL Normal 0.0-0.4 [facility] ([place]) Comment on above: Result Comment: Use of this assay is not recommended for patients undergoing treatment with eltrombopag due to the potential for falsely elevated results. Performed By: #### L IP, GFR, ADIFF, ANEU, CBC, CMP, MDW #### [address] [address] Bili Total 1.10 mg/dL Normal 0.20-1.20 [facility] ([place]) Comment on above: Result Comment: Use of this assay is not recommended for patients undergoing treatment with eltrombopag due to the potential for falsely elevated results. Performed By: #### L IP, GFR, ADIFF, ANEU, CBC, CMP, MDW #### [address] [address] Globulin 3.3 G/dL Normal 1.5-3.8 [facility] ([place]) Comment on above: Performed By: #### L IP, GFR, ADIFF, ANEU, CBC, CMP, MDW #### [address] [address] Total Protein 6.8 G/dL Normal 5.7-8.2 [facility] ([place]) Comment on above: Result Comment: No te - New Reference Range in effect 19 Performed By: #### L IP, GFR, ADIFF, ANEU, CBC, CMP, MDW #### [address] [address] LABORATORYOrdered By: SYSTEM SYSTEM on 05-17-2023 Albumin BCP dye [Mass/Vol] 3.5 G/dL Normal 3.2 - 4.8 G/dL ADM SS Albumin/Globulin [Mass ratio] 1.1 {ratio} Normal 0.9 - 1.6 ratio ADM SS ALP [Catalytic activity/Vol] 87 U/L Normal 38 - 126 U/L ADM SS ALT No additional P-5'-P [Catalytic activity/Vol] 12 U/L Normal 10 - 49 U/L AH ADM SS AST [Catalytic activity/Vol] 17 U/L Normal 8 - 34 U/L ADM SS Basophils (Bld) [#/Vol] 0.0 103/mcL Normal 0.0 - 0.3 10^3/mcL Workflow SS Basophils/100 WBC (Bld) 0.4 % Normal 0.0 - 2.5 % Workflow SS Bili Indirect 0.8 mg/dL Normal 0.1 - 10.0 mg/dL Chemistry S Bilirubin [Mass/Vol] 1.10 mg/dL Normal 0.20 - 1.20 mg/dL ADM SS Comment on above: Interpretive Data: U se of this assay is not recommended for patients undergoing treatment with eltrombopag due to the potential for falsely elevated results. Bilirubin.conjugated [Mass/Vol] 0.3 mg/dL Normal 0.0 - 0.4 mg/dL ADM [facility] Comment on above: Interpretive Data: U se of this assay is not recommended for patients undergoing treatment with eltrombopag due to the potential for falsely elevated results. Calcium [Mass/Vol] 9.6 mg/dL Normal 8.7 - 10. 4 mg/dL ADM [facility] Chloride [Moles/Vol] 109 mmol/L Normal 98 - 11 0 mEq/L ADM SS CO2 [Moles/Vol] 30 mmol/L Normal 22 - 32 mEq/L ADM SS Creatinine [Mass/Vol] 0.63 mg/dL Normal 0.50 - 1.20 mg/dL ADM SS Electrolyte Balance 2.0 mEq/L Low 4.0 - 15 .0 mEq/L ADM SS Eosinophils (Bld) [#/Vol] 0.1 103/mcL Normal 0.0 - 0.7 10^3/mcL Workflow SS Eosinophils/100 WBC (Bld) 1.0 % Normal 0.0 - 6.0 % Workflow SS Erythrocyte distribution width (RBC) [Ratio] 14.8 % Normal 11.5 - 15.5 % Workflow SS GFR/1.73 sq M.predicted among blacks MDRD (S/P/Bld) [Vol rate/Area] ml/min/1.73sqm Invalid Interpretation Code Chemistry S Comment on above: Interpretive Data: GFR Population mean for , Non- Americans Ages 20-29 = 116 mL/min/1.73 sq.m. Ages 30-39 = 107 mL/min/1.73 sq.m. Ages 40-49 = 99 mL/min/1.73 sq.m. Ages 50-59 = 93 mL/min/1.73 sq.m. Ages 60-69 = 85 mL/min/1.73 sq.m. Ages 70+ = 75 mL/min/1.73 sq.m. Chronic Kidney Disease: Less than 60 mL/min/1.73 square meters End Stage Renal Disease: Less than 15 mL/min/1.73 square meters GFR/1.73 sq M.predicted among non-blacks MDRD (S/P/Bld) [Vol rate/Area] ml/min/1.73sqm Invalid Interpretation Code Chemistry S Comment on above: Interpretive Data: GFR Population mean for , Non- Americans Ages 20-29 = 116 mL/min/1.73 sq.m. Ages 30-39 = 107 mL/min/1.73 sq.m. Ages 40-49 = 99 mL/min/1.73 sq.m. Ages 50-59 = 93 mL/min/1.73 sq.m. Ages 60-69 = 85 mL/min/1.73 sq.m. Ages 70+ = 75 mL/min/1.73 sq.m. Chronic Kidney Disease: Less than 60 mL/min/1.73 square meters End Stage Renal Disease: Less than 15 mL/min/1.73 square meters Globulin 3.3 G/dL Normal 1.5 - 3.8 G/dL ADM SS Glucose [Mass/Vol] 127 mg/dL High 82 - 115 mg/dL ADM SS Hematocrit (Bld) [Volume fraction] 39.8 % Normal 34.0 - 46.0 % AH Workflow SS Hemoglobin (Bld) [Mass/Vol] 13.1 G/dL Normal 12.0 - 16.0 G/dL AH Workflow SS Lymphocytes (Bld) [#/Vol] 1.5 103/mcL Normal 0.9 - 4.3 10^3/mcL AH Workflow SS Lymphocytes/100 WBC (Bld) 26.6 % Normal 20.0 - 40.0 % AH Workflow SS Magnesium [Mass/Vol] 1.8 mg/dL Normal 1.6 - 2 .4 mg/dL ADM SS MCH (RBC) [Entitic mass] 27.8 pg Normal 27.0 - 33.0 pg AH Workflow SS MCHC 32.9 G/dL Normal 32.0 - 36.0 G/dL Workflow SS MCV (RBC) [Entitic vol] 84.4 fL Normal 80.0 - 99.0 fL Workflow SS Monocytes (Bld) [#/Vol] 0.5 103/mcL Normal 0.1 - 1.4 10^3/mcL AH Workflow SS Monocytes/100 WBC (Bld) 9.2 % Normal 2.0 - 13.0 % AH Workflow SS Neutrophils (Bld) [#/Vol] 3.7 103/mcL Normal 2.3 - 8.1 10^3/mcL AH Workflow SS Neutrophils/100 WBC (Bld) 62.8 % Normal 50.0 - 75.0 % AH Workflow SS Platelet mean volume (Bld) [Entitic vol] 10.4 fL Normal 6.6 - 10.5 fL AH Workflow SS Platelets (Bld) [#/Vol] 170 103/mcL Normal 150 - 450 10^3/mcL AH Workflow SS Potassium [Moles/Vol] 5.1 mmol/L High 3.5 - 5.0 mEq/L AH ADM SS Protein [Mass/Vol] 6.8 G/dL Normal 5.7 - 8.2 G/dL AH ADM SS Comment on above: Interpretive Data: * *Note - New Reference Range in effect 19 RBC (Bld) [#/Vol] 4.71 106/mcL Normal 4.10 - 5.3 0 10^6/mcL AH Workflow SS Sodium [Moles/Vol] 141 mmol/L Normal 136 - 145 mEq/L AH ADM SS Urea nitrogen [Mass/Vol] 12.0 mg/dL Normal 8.0 - 22.0 mg/dL AH ADM SS Urea nitrogen/Creatinine [Mass ratio] 19.0 ratio Normal 10.0 - 22.0 ratio AH ADM SS WBC (Bld) [#/Vol] 5.8 103/mcL Normal 4.5 - 10.8 10^3/mcL AH Workflow SS MGon 05-17-2023 Magnesium [Mass/Vol] 1.8 mg/dL Normal 1.6-2.4 [facility] ([place]) Comment on above: Performed By: #### L IP, GFR, ADIFF, ANEU, CBC, CMP, MDW #### [address] [address] PT and aPTT panel Coag (PPP) on 05-17-2023 aPTT Coag (PPP) [Time] [address] [facility] INR Coag (PPP) [Relative time] 1.1 {INR} 0.9 - 1.1 [facility] Interpretation and review of laboratory results Normal [facility] PT Coag (PPP) [Time] 12.[address] [facility] The APTT is no longer used for monitoring Unfractionated Heparin Therapy. For monitoring Heparin Therapy, use the Heparin Assay. [facility] aPTT Coag (PPP) [Time] 32 s Normal 27-38 [facility] Comment on above: Order Comment: The A PTT is no longer used for monitoring Unfractionated Heparin Therapy. For monitoring Heparin Therapy, use the Heparin Assay. Performed By: #### 3 4529-8 #### GAYE Triplett ([id number]) [facility] ([facility]) [address] [place] [id number] INR Coag (PPP) [Relative time] 1.1 Normal 0.9-1.1 [facility] Comment on above: Order Comment: The A PTT is no longer used for monitoring Unfractionated Heparin Therapy. For monitoring Heparin Therapy, use the Heparin Assay. Performed By: #### 3 4529-8 #### GAYE Triplett ([id number]) [facility] ([facility]) [address] [place] [address] PT Coag (PPP) [Time] 12.5 s Normal 9.8-12.8 [facility] Comment on above: Order Comment: The A PTT is no longer used for monitoring Unfractionated Heparin Therapy. For monitoring Heparin Therapy, use the Heparin Assay. Performed By: #### 3 4529-8 #### GAYE Triplett ([id number]) [facility] ([facility]) [address] [place] [id number] UAon 05-17-2023 Color (U) Yellow Normal [facility] ([place]) Comment on above: Performed By: #### L IP, GFR, ADIFF, ANEU, CBC, CMP, MDW #### [facility] [address] [place] [address] Glucose (U) [Mass/Vol] Negative Normal Negative [facility] ([place]) Comment on above: Performed By: #### L IP, GFR, ADIFF, ANEU, CBC, CMP, MDW #### [address] [address] Ketones Ql (U) Trace Normal Neg-Trace [facility] ([place]) Comment on above: Performed By: #### L IP, GFR, ADIFF, ANEU, CBC, CMP, MDW #### [address] [address] UA Appear Clear Normal Clear [facility] ([place]) Comment on above: Performed By: #### L IP, GFR, ADIFF, ANEU, CBC, CMP, MDW #### [address] [address] UA Blood Negative Normal Neg-Trace [facility] ([place]) Comment on above: Performed By: #### L IP, GFR, ADIFF, ANEU, CBC, CMP, MDW #### [address] [address] UA Leuk Est Trace Normal Negative [facility] ([place]) Comment on above: Performed By: #### L IP, GFR, ADIFF, ANEU, CBC, CMP, MDW #### [address] [address] UA Nitrite Negative Normal Negative [facility] ([place]) Comment on above: Performed By: #### L IP, GFR, ADIFF, ANEU, CBC, CMP, MDW #### [address] [address] UA pH 6.5 Normal 5.0 - 8.0 [facility] ([place]) Comment on above: Performed By: #### L IP, GFR, ADIFF, ANEU, CBC, CMP, MDW #### [address] [address] UA Protein Negative Normal Negative [facility] ([place]) Comment on above: Performed By: #### L IP, GFR, ADIFF, ANEU, CBC, CMP, MDW #### [address] [address] UA Spec Grav <=1.005 Abnormal 1.006-1.029 [facility] ([place]) Comment on above: Performed By: #### L IP, GFR, ADIFF, ANEU, CBC, CMP, MDW #### [address] [address] UA Specimen Type Clean Catch Normal [facility] ([place]) Comment on above: Performed By: #### L IP, GFR, ADIFF, ANEU, CBC, CMP, MDW #### [address] [address] UA Urobilinogen 0.2 E.U./dL Normal 0.2-1.0 [facility] ([place]) Comment on above: Performed By: #### L IP, GFR, ADIFF, ANEU, CBC, CMP, MDW #### [address] [address] Urobilinogen (U) [Mass/Vol] Negative Normal Neg-Trace [facility] ([place]) Comment on above: Performed By: #### L IP, GFR, ADIFF, ANEU, CBC, CMP, MDW #### [address] [address] XR CHEST 1 VIEWon 05-17-2023 XR CHEST 1 VIEW STUDY: Chest Radiograph; 05/17/2023 7:43PM INDICATION: Pre operation. COMPARISON: XR chest 05/09/2023, CT chest abdomen pelvis ACCESSION NUMBER(S): [id number] ORDERING CLINICIAN: ALONSO BLACKWOOD TECHNIQUE: Frontal chest was obtained at 19:42 hours. FINDINGS: CARDIOMEDIASTINAL SILHOUETTE: Cardiomediastinal silhouette is normal in size and configuration. LUNGS: Lungs are clear. ABDOMEN: No remarkable upper abdominal findings. BONES: No acute osseous changes. IMPRESSION: No radiographic evidence of acute cardiopulmonary disease. Signed by Allen De Los Santos MD [facility] XR Chest Single viewon 05-17 No radiographic evidence of acute cardiopulmonary disease. Signed by Allen De Los Santos MD TELERADIOLOGY STUDY: Chest Radiograph; 05/17/2023 7:43PM INDICATION: Pre operation. COMPARISON: XR chest 05/09/2023, CT chest abdomen pelvis ACCESSION NUMBER(S): [id number] ORDERING CLINICIAN: ALONSO BLACKWOOD TECHNIQUE: Frontal chest was obtained at 19:42 hours. FINDINGS: CARDIOMEDIASTINAL SILHOUETTE: Cardiomediastinal silhouette is normal in size and configuration. LUNGS: Lungs are clear. ABDOMEN: No remarkable upper abdominal findings. BONES: No acute osseous changes. TELERADIOLOGY Allen De Los Santos MD - 05/17/2023 STUDY: Chest Radiograph; 05/17/2023 7:43PM INDICATION: Pre operation. COMPARISON: XR chest 05/09/2023, CT chest abdomen pelvis ACCESSION NUMBER(S): [id number] ORDERING CLINICIAN: ALONSO BLACKWOOD TECHNIQUE: Frontal chest was obtained at 19:42 hours. FINDINGS: CARDIOMEDIASTINAL SILHOUETTE: Cardiomediastinal silhouette is normal in size and configuration. LUNGS: Lungs are clear. ABDOMEN: No remarkable upper abdominal findings. BONES: No acute osseous changes. IMPRESSION: No radiographic evidence of acute cardiopulmonary disease. Signed by Allen De Los Santos MD [facility] Work Phone: Radiology Study observation (narrative) [facility] Work Phone: XR Chest Single viewOrdered By: Allen De Los Santos on 05-17-2023 [facility] Work Phone: .Auto Diffon 05-16-2023 Basophil, Absolute 0.0 10 3/mcL Normal 0.0-0.3 [facility] ([place]) Comment on above: Performed By: #### L IP, GFR, ADIFF, ANEU, CBC, CMP, MDW #### [address] [address] Basophils/100 WBC (Bld) 0.6 % Normal 0.0-2.5 [facility] ([place]) Comment on above: Performed By: #### L IP, GFR, ADIFF, ANEU, CBC, CMP, MDW #### [address] [address] Eosinophil, Absolute 0.1 10 3/mcL Normal 0.0-0.7 [facility] ([place]) Comment on above: Performed By: #### L IP, GFR, ADIFF, ANEU, CBC, CMP, MDW #### [address] [address] Eosinophils/100 WBC (Bld) 1.0 % Normal 0.0-6.0 [facility] ([place]) Comment on above: Performed By: #### L IP, GFR, ADIFF, ANEU, CBC, CMP, MDW #### [address] [address] Lymphocyte, Absolute 1.5 10 3/mcL Normal 0.9-4.3 [facility] ([place]) Comment on above: Performed By: #### L IP, GFR, ADIFF, ANEU, CBC, CMP, MDW #### [address] [address] Lymphocytes/100 WBC (Bld) 25.6 % Normal 20.0-40.0 [facility] ([place]) Comment on above: Performed By: #### L IP, GFR, ADIFF, ANEU, CBC, CMP, MDW #### [address] [address] Monocyte, Absolute 0.4 10 3/mcL Normal 0.1-1.4 [facility] ([place]) Comment on above: Performed By: #### L IP, GFR, ADIFF, ANEU, CBC, CMP, MDW #### [address] [address] Monocytes/100 WBC (Bld) 6.2 % Normal 2.0-13.0 [facility] ([place]) Comment on above: Performed By: #### L IP, GFR, ADIFF, ANEU, CBC, CMP, MDW #### [address] [address] Neutrophils/100 WBC (Bld) 66.6 % Normal 50.0-75.0 [facility] ([place]) Comment on above: Performed By: #### L IP, GFR, ADIFF, ANEU, CBC, CMP, MDW #### [address] [address] .GFRon 05-16-2023 GFR >60 Normal [facility] ([place]) Comment on above: Result Comment: GFR Population mean for , Non- Americans Ages 20-29 = 116 mL/min/1.73 sq.m. Ages 30-39 = 107 mL/min/1.73 sq.m. Ages 40-49 = 99 mL/min/1.73 sq.m. Ages 50-59 = 93 mL/min/1.73 sq.m. Ages 60-69 = 85 mL/min/1.73 sq.m. Ages 70+ = 75 mL/min/1.73 sq.m. Chronic Kidney Disease: Less than 60 mL/min/1.73 square meters End Stage Renal Disease: Less than 15 mL/min/1.73 square meters Performed By: #### L IP, GFR, ADIFF, ANEU, CBC, CMP, MDW #### [address] [address] GFR Non- >60 Normal [facility] ([place]) Comment on above: Result Comment: GFR Population mean for , Non- Americans Ages 20-29 = 116 mL/min/1.73 sq.m. Ages 30-39 = 107 mL/min/1.73 sq.m. Ages 40-49 = 99 mL/min/1.73 sq.m. Ages 50-59 = 93 mL/min/1.73 sq.m. Ages 60-69 = 85 mL/min/1.73 sq.m. Ages 70+ = 75 mL/min/1.73 sq.m. Chronic Kidney Disease: Less than 60 mL/min/1.73 square meters End Stage Renal Disease: Less than 15 mL/min/1.73 square meters Performed By: #### L IP, GFR, ADIFF, ANEU, CBC, CMP, MDW #### [address] [address] .MDWon 05-16-2023 Monocyte Distribution Width 18.23 Normal 0.00-20.00 [facility] ([place]) Comment on above: Result Comment: For ED adult patients suspected of sepsis, MDW<=20.0 does not rule out sepsis or risk of sepsis Performed By: #### L IP, GFR, ADIFF, ANEU, CBC, CMP, MDW #### [address] [address] .NEUABSon 05-16-2023 Neutrophil, Absolute 4.0 10 3/mcL Normal 2.3-8.1 [facility] ([place]) Comment on above: Performed By: #### L IP, GFR, ADIFF, ANEU, CBC, CMP, MDW #### [address] [address] CBCon 05-16-2023 Erythrocyte distribution width (RBC) [Ratio] 14.6 % Normal 11.5-15.5 [facility] ([place]) Comment on above: Performed By: #### L IP, GFR, ADIFF, ANEU, CBC, CMP, MDW #### [place] [address] Hematocrit (Bld) [Volume fraction] 38.3 % Normal 34.0-46.0 [facility] ([place]) Comment on above: Performed By: #### L IP, GFR, ADIFF, ANEU, CBC, CMP, MDW #### [place] [address] Hgb 12.6 G/dL Normal 12.0-16.0 [facility] ([place]) Comment on above: Performed By: #### L IP, GFR, ADIFF, ANEU, CBC, CMP, MDW #### [place] [address] MCH (RBC) [Entitic mass] 27.8 pg Normal 27.0-33.0 [facility] ([place]) Comment on above: Performed By: #### L IP, GFR, ADIFF, ANEU, CBC, CMP, MDW #### [place] [address] MCHC 32.9 G/dL Normal 32.0-36.0 [facility] ([place]) Comment on above: Performed By: #### L IP, GFR, ADIFF, ANEU, CBC, CMP, MDW #### [place] [address] MCV (RBC) [Entitic vol] 84.4 fL Normal 80.0-99.0 [facility] ([place]) Comment on above: Performed By: #### L IP, GFR, ADIFF, ANEU, CBC, CMP, MDW #### [place] [id number] Platelet 176 10 3/mcL Normal 150-450 [facility] ([place]) Comment on above: Performed By: #### L IP, GFR, ADIFF, ANEU, CBC, CMP, MDW #### [address] [address] Platelet mean volume (Bld) [Entitic vol] 10.3 fL Normal 6.6-10.5 [facility] ([place]) Comment on above: Performed By: #### L IP, GFR, ADIFF, ANEU, CBC, CMP, MDW #### [place] [address] RBC 4.54 10 6/mcL Normal 4.10-5.30 [facility] ([place]) Comment on above: Performed By: #### L IP, GFR, ADIFF, ANEU, CBC, CMP, MDW #### [place] [address] WBC 6.0 10 3/mcL Normal 4.5-10.8 [facility] ([place]) Comment on above: Performed By: #### L IP, GFR, ADIFF, ANEU, CBC, CMP, W #### [address] [address] CMPon 05-16-2023 Albumin Level 4.0 G/dL Normal 3.2-4.8 [facility] ([place]) Comment on above: Performed By: #### L IP, GFR, ADIFF, ANEU, CBC, CMP, W #### [place] [id number] Albumin/Globulin [Mass ratio] 1.2 {ratio} Normal 0.9-1.6 [facility] ([place]) Comment on above: Performed By: #### L IP, GFR, ADIFF, ANEU, CBC, CMP, MARY #### [place] [phone] ALP [Catalytic activity/Vol] 82 U/L Normal 38-126 [facility] ([place]) Comment on above: Performed By: #### L IP, GFR, ADIFF, ANEU, CBC, CMP, W #### [address] [address] ALT [Catalytic activity/Vol] 8 U/L Low 10-49 [facility] ([place]) Comment on above: Performed By: #### L IP, GFR, ADIFF, ANEU, CBC, CMP, MDW #### [address] [address] AST [Catalytic activity/Vol] 17 U/L Normal 8-34 [facility] ([place]) Comment on above: Performed By: #### L IP, GFR, ADIFF, ANEU, CBC, CMP, MDW #### [address] [address] Bili Total 0.70 mg/dL Normal 0.20-1.20 [facility] ([place]) Comment on above: Result Comment: Use of this assay is not recommended for patients undergoing treatment with eltrombopag due to the potential for falsely elevated results. Performed By: #### L IP, GFR, ADIFF, ANEU, CBC, CMP, W #### [address] [address] BUN/Creatinine Ratio 20.0 ratio Normal 10.0-22.0 [facility] ([place]) Comment on above: Performed By: #### L IP, GFR, ADIFF, ANEU, CBC, CMP, W #### [address] [address] Calcium [Mass/Vol] 9.6 mg/dL Normal 8.7-10.4 [facility] ([place]) Comment on above: Performed By: #### L IP, GFR, ADIFF, ANEU, CBC, CMP, MDW #### [address] [address] Chloride [Moles/Vol] 109 mmol/L Normal 98-110 [facility] ([place]) Comment on above: Performed By: #### L IP, GFR, ADIFF, ANEU, CBC, CMP, MDW #### [address] [address] CO2 [Moles/Vol] 30 mmol/L Normal 22-32 [facility] ([place]) Comment on above: Performed By: #### L IP, GFR, ADIFF, ANEU, CBC, CMP, MDW #### [address] [address] Creatinine [Mass/Vol] 0.75 mg/dL Normal 0.50-1.20 [facility] ([place]) Comment on above: Performed By: #### L IP, GFR, ADIFF, ANEU, CBC, CMP, MDW #### [address] [address] Electrolyte Balance 5.0 mEq/L Normal 4.0-15.0 [facility] ([place]) Comment on above: Performed By: #### L IP, GFR, ADIFF, ANEU, CBC, CMP, MDW #### [place] [phone] Globulin 3.4 G/dL Normal 1.5-3.8 [facility] ([place]) Comment on above: Performed By: #### L IP, GFR, ADIFF, ANEU, CBC, CMP, MDW #### [place] [phone] Glucose [Mass/Vol] 98 mg/dL Normal 82-115 [facility] ([place]) Comment on above: Performed By: #### L IP, GFR, ADIFF, ANEU, CBC, CMP, MDW #### [address] [address] Potassium [Moles/Vol] 4.2 mmol/L Normal 3.5-5.0 [facility] ([place]) Comment on above: Result Comment: Spec imen slightly hemolyzed. Performed By: #### L IP, GFR, ADIFF, ANEU, CBC, CMP, MDW #### [address] [address] Sodium [Moles/Vol] 144 mmol/L Normal 136-145 [facility] ([place]) Comment on above: Performed By: #### L IP, GFR, ADIFF, ANEU, CBC, CMP, MDW #### [place] [id number] Total Protein 7.4 G/dL Normal 5.7-8.2 [facility] ([place]) Comment on above: Result Comment: No te - New Reference Range in effect 19 Performed By: #### L IP, GFR, ADIFF, ANEU, CBC, CMP, MDW #### [facility] [address] [place] [address] Urea nitrogen [Mass/Vol] 15.0 mg/dL Normal 8.0-22.0 [facility] ([place]) Comment on above: Performed By: #### L IP, GFR, ADIFF, ANEU, CBC, CMP, MDW #### [facility] [address] [place] [address] LABORATORYOrdered By: Ana M Douglas on 05-16-2023 Appearance (U) Clear (05/16/23 10:24 PM) Normal Clear Auto Urine SS Bilirubin Ql (U) Negative (05/16/23 10:24 PM) Normal Neg-Trace AH Auto Urine SS Color (U) Yellow (05/16/23 10:24 PM) Normal AH Auto Urine SS Glucose Test strip (U) [Mass/Vol] Negative Normal Negative AH Auto Urine SS Hemoglobin Auto test strip (U) [Mass/Vol] Negative (05/16/23 10:24 PM) Normal Neg-Trace AH Auto Urine SS Ketones Ql (U) Trace mg/dL Normal Neg-Trace AH Auto U rine SS UA Leuk Est Trace *NA* (05/16/23 10:24 PM) Invalid Interpretation Code Negative AH Auto Urine SS UA Nitrite Negative (05/16/23 10:24 PM) Normal Negative AH Auto Urine SS UA pH 6.5 (05/16/23 10:24 PM) Normal 5.0 - 8.0 AH Auto Urine SS UA Protein Negative Normal Negative Auto Urine SS UA Spec Grav <=1.005 *ABN* (05/16/23 10:24 PM) Invalid Interpretation Code 1.006-1.029 AH Auto Urine SS UA Specimen Type Clean Catch (05/16/23 10:24 PM) Normal Auto Urine SS UA Urobilinogen 0.2 E.U./dL Normal 0.2-1.0 AH Auto Urine SS LABORATORYOrdered By: SYSTEM SYSTEM on 05-16-2023 Albumin BCP dye [Mass/Vol] 4.0 G/dL Normal 3.2 - 4.8 G/dL ADM SS Albumin/Globulin [Mass ratio] 1.2 {ratio} Normal 0.9 - 1.6 ratio ADM SS ALP [Catalytic activity/Vol] 82 U/L Normal 38 - 126 U/L ADM SS ALT No additional P-5'-P [Catalytic activity/Vol] 8 U/L Low 10 - 49 U/L ADM SS AST [Catalytic activity/Vol] 17 U/L Normal 8 - 34 U/L ADM SS Basophils (Bld) [#/Vol] 0.0 103/mcL Normal 0.0 - 0.3 10^3/mcL Workflow SS Basophils/100 WBC (Bld) 0.6 % Normal 0.0 - 2.5 % Workflow SS Bilirubin [Mass/Vol] 0.70 mg/dL Normal 0.20 - 1.20 mg/dL ADM SS Comment on above: Interpretive Data: U se of this assay is not recommended for patients undergoing treatment with eltrombopag due to the potential for falsely elevated results. Calcium [Mass/Vol] 9.6 mg/dL Normal 8.7 - 10. 4 mg/dL ADM SS Chloride [Moles/Vol] 109 mmol/L Normal 98 - 11 0 mEq/L ADM SS CO2 [Moles/Vol] 30 mmol/L Normal 22 - 32 mEq/L ADM SS Creatinine [Mass/Vol] 0.75 mg/dL Normal 0.50 - 1.20 mg/dL ADM SS Electrolyte Balance 5.0 mEq/L Normal 4.0 - 15 .0 mEq/L ADM SS Eosinophils (Bld) [#/Vol] 0.1 103/mcL Normal 0.0 - 0.7 10^3/mcL Workflow SS Eosinophils/100 WBC (Bld) 1.0 % Normal 0.0 - 6.0 % Workflow SS Erythrocyte distribution width (RBC) [Ratio] 14.6 % Normal 11.5 - 15.5 % Workflow SS GFR/1.73 sq M.predicted among blacks MDRD (S/P/Bld) [Vol rate/Area] ml/min/1.73sqm Invalid Interpretation Code ADM SS Comment on above: Interpretive Data: GFR Population mean for , Non- Americans Ages 20-29 = 116 mL/min/1.73 sq.m. Ages 30-39 = 107 mL/min/1.73 sq.m. Ages 40-49 = 99 mL/min/1.73 sq.m. Ages 50-59 = 93 mL/min/1.73 sq.m. Ages 60-69 = 85 mL/min/1.73 sq.m. Ages 70+ = 75 mL/min/1.73 sq.m. Chronic Kidney Disease: Less than 60 mL/min/1.73 square meters End Stage Renal Disease: Less than 15 mL/min/1.73 square meters GFR/1.73 sq M.predicted among non-blacks MDRD (S/P/Bld) [Vol rate/Area] ml/min/1.73sqm Invalid Interpretation Code ADM Comment on above: Interpretive Data: GFR Population mean for , Non- Americans Ages 20-29 = 116 mL/min/1.73 sq.m. Ages 30-39 = 107 mL/min/1.73 sq.m. Ages 40-49 = 99 mL/min/1.73 sq.m. Ages 50-59 = 93 mL/min/1.73 sq.m. Ages 60-69 = 85 mL/min/1.73 sq.m. Ages 70+ = 75 mL/min/1.73 sq.m. Chronic Kidney Disease: Less than 60 mL/min/1.73 square meters End Stage Renal Disease: Less than 15 mL/min/1.73 square meters Globulin 3.4 G/dL Normal 1.5 - 3.8 G/dL ADM Glucose [Mass/Vol] 98 mg/dL Normal 82 - 115 mg/dL ADM Hematocrit (Bld) [Volume fraction] 38.3 % Normal 34.0 - 46.0 % Workflow Hemoglobin (Bld) [Mass/Vol] 12.6 G/dL Normal 12.0 - 16.0 G/dL Workflow Lipase [Catalytic activity/Vol] 33 U/L Normal 12 - 53 U/L ADM Comment on above: Interpretive Data: * *Note - New Reference Range in effect 19 Lymphocytes (Bld) [#/Vol] 1.5 103/mcL Normal 0.9 - 4.3 10^3/mcL Workflow SS Lymphocytes/100 WBC (Bld) 25.6 % Normal 20.0 - 40.0 % AH Workflow SS MCH (RBC) [Entitic mass] 27.8 pg Normal 27.0 - 33.0 pg AH Workflow SS MCHC 32.9 G/dL Normal 32.0 - 36.0 G/dL AH Workflow SS MCV (RBC) [Entitic vol] 84.4 fL Normal 80.0 - 99.0 fL AH Workflow SS Monocyte distribution width Auto (Bld) [Entitic vol] 18.23 1 Normal 0.00 - 20.00 AH Workflow SS Comment on above: Result Comment: For ED adult patients suspected of sepsis, MDW<=20.0 does not rule out sepsis or risk of sepsis Monocytes (Bld) [#/Vol] 0.4 103/mcL Normal 0.1 - 1.4 10^3/mcL AH Workflow SS Monocytes/100 WBC (Bld) 6.2 % Normal 2.0 - 13.0 % AH Workflow SS Neutrophils (Bld) [#/Vol] 4.0 103/mcL Normal 2.3 - 8.1 10^3/mcL AH Workflow SS Neutrophils/100 WBC (Bld) 66.6 % Normal 50.0 - 75.0 % AH Workflow SS Platelet mean volume (Bld) [Entitic vol] 10.3 fL Normal 6.6 - 10.5 fL AH Workflow SS Platelets (Bld) [#/Vol] 176 103/mcL Normal 150 - 450 10^3/mcL AH Workflow SS Potassium [Moles/Vol] 4.2 mmol/L Normal 3.5 - 5.0 mEq/L ADM SS Comment on above: Result Comment: Spec imen slightly hemolyzed. Protein [Mass/Vol] 7.4 G/dL Normal 5.7 - 8.2 G/dL ADM SS Comment on above: Interpretive Data: * *Note - New Reference Range in effect 19 RBC (Bld) [#/Vol] 4.54 106/mcL Normal 4.10 - 5.3 0 10^6/mcL AH Workflow SS Sodium [Moles/Vol] 144 mmol/L Normal 136 - 145 mEq/L ADM SS Urea nitrogen [Mass/Vol] 15.0 mg/dL Normal 8.0 - 22.0 mg/dL ADM SS Urea nitrogen/Creatinine [Mass ratio] 20.0 ratio Normal 10.0 - 22.0 ratio AH ADM SS WBC (Bld) [#/Vol] 6.0 103/mcL Normal 4.5 - 10.8 10^3/mcL AH Workflow SS LIPon 05-16-2023 Lipase Level 33 U/L Normal 12-53 [facility] ([place]) Comment on above: Result Comment: No te - New Reference Range in effect 19 Performed By: #### L IP, GFR, ADIFF, ANEU, CBC, CMP, MDW #### [facility] [address] [place] [address] BMP with eGFRon 05-15-2023 AGE 73 years Normal [facility] Comment on above: Performed By: #### 2 [id number] #### [facility],[address] [place] [address] Anion gap [Moles/Vol] 12 mmol/L Normal 10 - 20 [facility] Comment on above: Performed By: #### 2 [id number] #### [facility],[address] [place] [address] BMP with eGFR Normal [facility] Comment on above: Result Comment: BASI C METABOLIC PANEL Performed By: #### 2 [id number] #### [facility],[address] [place] [address] Calcium [Mass/Vol] 10.0 mg/dL Normal 8.5 - 10.1 [facility] Comment on above: Performed By: #### 2 [id number] #### [facility],[address] [place] [address] [id number] Chloride [Moles/Vol] 103 mmol/L Normal 98 - 107 [facility] Comment on above: Performed By: #### [id number] #### [facility],[address] [place] [address] [id number] CO2 [Moles/Vol] 29.4 mmol/L Normal 21.0 - 32.0 [facility] Comment on above: Performed By: #### [id number] #### [facility],[address] [place], [place] [id number] Creatinine [Mass/Vol] 0.72 mg/dL Normal 0.55 - 1.[address] [facility] Comment on above: Performed By: #### 2 [id number] #### [facility],[address] [place], [place] [id number] GFR/1.73 sq M.predicted among non-blacks MDRD (S/P/Bld) [Vol rate/Area] mL/min/{1.73_m2} Normal 60 - 999 [facility] Comment on above: Performed By: #### 2 64789 #### [facility],[address] [place] [address] Result Comment: ACCO RDING TO THE NATIONAL KIDNEY DISEASE EDUCATION PROGRAM(NKDE), A NORMAL eGFR IS A VALUE GREATER THAN OR EQUAL TO 60 ML/MIN/1.73 SQ METERS. CHRONIC KIDNEY DISEASE: <60mL/MIN/1.73 SQ METERS KIDNEY FAILURE: <15mL/MIN/1.73 SQ METERS THIS TEST SHOULD ONLY BE USED FOR PATIENTS 18 YEARS OF AGE AND OLDER. Glucose [Mass/Vol] 99 mg/dL Normal 74 - 106 [facility] Comment on above: Performed By: #### 2 07615 #### [facility],[address] [place], [place] [id number] Potassium [Moles/Vol] 3.9 mmol/L Normal 3.5 - 5.1 [facility] Comment on above: Performed By: #### 2 39623 #### [facility],[address] [place] [address] 17364 Sodium [Moles/Vol] 140 mmol/L Normal 136 - 145 [facility] Comment on above: Performed By: #### 2 92741 #### [facility],[address] [place] [address] 63037 Urea nitrogen [Mass/Vol] 20 mg/dL High 7 - 18 [facility] Comment on above: Performed By: #### 2 38082 #### [facility],[address] [place] [address] ABDOMEN/PELVIS Won 2023 CT ABDOMEN/PELVIS W [address] [address] Patient: JACKLYN CALHOUN Phone#: : 1950 Age: 73 Gender: F Pt. Type: Out Account: [id number] Location: Ordering: MODESTA CORADO Exam Date: 05/15/2023/16:36 Family Phys: Charge Code: [id number] Physician: Woodruff Order #: [id number] Dose#: 17.0 mGy PROCEDURE: CT ABDOMEN/PELVIS WITH CONTRAST COMPARISON: [facility], CT, ABDOMEN/PELVIS W CON, 11/21/2022, 11:22. INDICATIONS: History of colon cancer. TECHNIQUE: After obtaining the patient's consent, CT images were created with non-ionic intravenous contrast and oral contrast material. All CT scans at this facility use dose modulation, iterative reconstruction, and/or weight based dosing when appropriate to reduce radiation dose to as low as reasonably achievable. IV CONTRAST: Omnipaque 350,80ml TOTAL DOSE: 17.0 CTDIvol(mGy) FINDINGS: LIVER: Normal. No enlargement, atrophy, abnormal density, or significant focal lesion. No arterially enhancing lesion. BILIARY: Gallbladder is present PANCREAS: There has been interval resection of the mid to distal body of the pancreas and tail. Surgical clips are seen at the splenic hilum. 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 There is partial thrombosis of the lumen. The enhancing portion measures 4.0 x 4.0 x 3.1 cm. The pseudoaneurysm may be arising from the splenic artery, however inflow and outflow are narrowed and not definitively identified. SPLEEN: Normal. No enlargement or focal lesion. KIDNEYS: Kidneys enhance and excrete contrast symmetrically. No hydronephrosis. Low-attenuation lesion in the left kidney similar to prior, too small to characterize. Additional low-attenuation lesions are present, too small to characterize. ADRENALS: Normal. No mass or enlargement. AORTA/VASCULAR: No aortic aneurysm. There is narrowing at the origin of the celiac artery, series 7, image 36. The splenic artery the level of the body of the pancreas abruptly narrows, possibly feeding the pseudoaneurysm. RETROPERITONEUM: Normal. No mass or adenopathy. Continued Report - Page 2 of 2 Patient: JACKLYN CALHOUN Phone#: : 1950 Age: 73 Gender: F Pt. Type: Out Account: [id number] Location: Ordering: MODESTA CORADO Exam Date: 05/15/2023/16:36 Family Phys: Charge Code: [id number] Physician: Woodruff Order #: [id number] Dose#: 17.0 mGy BOWEL/MESENTERY: No bowel obstruction or dilatation. Oral contrast is seen throughout the small bowel and reaches the transverse colon. There is evidence of prior colon resection and anastomosis at the sigmoid junction. There is moderate to large stool burden. The appendix is unremarkable containing air. ABDOMINAL WALL: Evidence of prior midline abdominal incision. URINARY BLADDER: Normal. No visible focal wall thickening, lesion, or calculus. PELVIC NODES: Normal. No adenopathy. PELVIC ORGANS: Uterus is absent. No adnexal mass. BONES: Normal. No bony lesion or fracture. LUNG BASES: Normal. No visible pulmonary or pleural disease. OTHER: Negative. CONCLUSION: 1. 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 Recommend vascular surgery evaluation. This finding was communicated by telephone to Modesta Corado at the dictation time shown below. 2. Narrowing at the origin of the celiac artery without significant atherosclerotic plaque, correlate for median arcuate compression. Dictated by: Kimberly Maria MD on 05/16/2023 at 13:50 Approved by: Kimberly Maria MD on 05/16/2023 at 14:46 Normal [facility] CEA [CCL]on 12-03-2022 CEA 2.0 ng/mL Normal <=2.9 [facility] Comment on above: Result Comment: Carc inoembryonic antigen test is used as an aid in monitoring response to treatment or recurrence in patients with established colorectal, breast, lung, prostatic, pancreatic, and ovarian carcinomas. Clinical correlation is required. The Carcinoembryonic antigen test was performed using the Verdezyneel DXI paramagnetic particle chemiluminescent immunoassay method. Results obtained with different assay methods or kits cannot be used interchangeably. [facility] [address] [place] [address] Sergio Gregg III, M.D. [id number] Performed By: #### 2 89001 #### [facility],[address] [place] [address] CBC + DIFFon 11-30-2022 Baso # 0.00 x10EE3/UL Normal 0.00 - 0.10 [facility] Comment on above: Performed By: #### 2 36894 #### [facility],[address] [place] [address] 66327 Basophils/100 WBC (Bld) 0.8 % Normal 0.0 - 2.0 [facility] Comment on above: Performed By: #### 2 41599 #### [facility],[address] [place] [address] CBC + DIFF Normal [facility] Comment on above: Result Comment: CBC- COMPLETE BLOOD COUNT Performed By: #### 2 33773 #### [facility],[address] [place] [address] EO # 0.10 x10EE3/UL Normal 0.00 - 0.50 [facility] Comment on above: Performed By: #### 2 67390 #### [facility],[address] [place] [address] 68891 Eosinophils/100 WBC (Bld) 1.3 % Normal 0.0 - 7.0 [facility] Comment on above: Performed By: #### 2 32070 #### [place] [address] Erythrocyte distribution width (RBC) [Ratio] 19.4 % High 12.0 - 15.6 [facility] Comment on above: Performed By: #### 2 73157 #### [place] [address] Hematocrit (Bld) [Volume fraction] 39.5 % Normal 34.0 - 46.0 [facility] Comment on above: Performed By: #### 2 13553 #### [facility],[address] [place] [address] Hemoglobin (Bld) [Mass/Vol] 12.7 g/dL Normal 12.0 - 16.0 [facility] Comment on above: Performed By: #### 2 48832 #### [facility],[address] [place] [address] Lymph # 2.00 x10EE3/UL Normal 0.80 - 2.80 [facility] Comment on above: Performed By: #### 2 64220 #### [facility],[address] [place] [address] Lymphocytes/100 WBC (Bld) 37.7 % Normal 20.0 - 45.0 [facility] Comment on above: Performed By: #### 2 53479 #### [facility],[address] [place] [address] MANUAL DIFF N/A Normal [facility] Comment on above: Performed By: #### 2 74276 #### [facility],[address] [place] [address] MCH (RBC) [Entitic mass] 25 pg Low 27 - 33 [facility] Comment on above: Performed By: #### 2 42803 #### [facility],[address] [place] [address] MCHC 32 X10 3 Normal 32 - 36 [facility] Comment on above: Performed By: #### 2 50465 #### [facility],[address] [place], [place] [address] MCV (RBC) [Entitic vol] 78 fL Low 80 - 99 [facility] Comment on above: Performed By: #### 2 11224 #### [facility],[address] [place] [address] Jessamine # 0.40 x10EE3/UL Normal 0.20 - 1.00 [facility] Comment on above: Performed By: #### 2 27030 #### [address] [address] MONOS % 7.3 % Normal 0.0 - 10.0 [facility] Comment on above: Performed By: #### 2 58857 #### [facility],[address] [place] [address] Morphology John (Bld) [Interp] N/A Normal [facility] Comment on above: Performed By: #### 2 61271 #### [facility],[address] [place] [address] Neut # 2.80 x10EE3/UL Normal 1.50 - 7.10 [facility] Comment on above: Performed By: #### 2 70742 #### [place] [address] Neutrophils/100 WBC (Bld) 52.9 % Normal 46.0 - 76.0 [facility] Comment on above: Performed By: #### 2 36993 #### [facility],[address] [place] [address] PLATELET 180 x10EE3/UL Normal 150 - 450 [facility] Comment on above: Performed By: #### 2 80052 #### [place] [address] Platelet mean volume (Bld) [Entitic vol] 9.1 fL Normal 6.6 - 10.5 [facility] Comment on above: Result Comment: AUTO MATED DIFFERENTIAL Performed By: #### 2 85345 #### [place] [address] RBC 5.07 x 10EE6/UL Normal 4.10 - 5.30 [facility] Comment on above: Performed By: #### 2 38470 #### [facility],[address] [place] [address] 17667 WBC 5.4 x 10EE3/UL Normal 4.5 - 10.[address] [facility] Comment on above: Performed By: #### 2 78513 #### [facility],[address] [place] [address]487 CMP with eGFRon 11-30-2022 AGE 72 years Normal [facility] Comment on above: Performed By: #### 2 68135 #### [facility],[address] [place] [address] 09375 Albumin [Mass/Vol] 3.7 g/dL Normal 3.4 - 5.0 [facility] Comment on above: Performed By: #### 2 05589 #### [facility],[address] [place] [address] 18575 Albumin/Globulin [Mass ratio] 1.0 {ratio} Normal 0.9 - 1.6 [facility] Comment on above: Performed By: #### 2 58904 #### [facility],[address] [place] [address] 64844 ALK PHOS 82 U/L Normal 46 - 116 [facility] Comment on above: Performed By: #### 2 00986 #### [facility],[address] [place] [address] 28770 ALT [Catalytic activity/Vol] 18 U/L Normal 14 - 59 [facility] Comment on above: Performed By: #### 2 05280 #### [facility],[address] [place] [address] 97778 Anion gap [Moles/Vol] 13 mmol/L Normal 10 - 20 [facility] Comment on above: Performed By: #### 2 49925 #### [facility],[address] [place] [address] 77580 AST [Catalytic activity/Vol] 23 U/L Normal 13 - 39 [facility] Comment on above: Performed By: #### 2 92959 #### [facility],[address] [place] [address] 74107 B/C RATIO 25 ratio Normal 0 - 30 [facility] Comment on above: Performed By: #### 2 32116 #### [facility],[address] [place] [address] 41777 Bilirubin [Mass/Vol] 0.5 mg/dL Normal 0.2 - 1.0 [facility] Comment on above: Performed By: #### 2 04879 #### [facility],[address] [place] [address] 67231 Calcium [Mass/Vol] 9.0 mg/dL Normal 8.5 - 10.1 [facility] Comment on above: Performed By: #### 2 15411 #### [facility],[address] [place] [address] 20866 Chloride [Moles/Vol] 106 mmol/L Normal 98 - 107 [facility] Comment on above: Performed By: #### 2 03602 #### [facility],[address] [place] [address] 11266 CMP with eGFR Normal [facility] Comment on above: Result Comment: COMP REHENSIVE METABOLIC PANEL Performed By: #### 2 80259 #### [facility],[address] [place] [address] 16165 CO2 [Moles/Vol] 26.1 mmol/L Normal 21.0 - 32.0 [facility] Comment on above: Performed By: #### 2 09368 #### [facility],[address] [place] [address] 27764 Creatinine [Mass/Vol] 0.71 mg/dL Normal 0.55 - 1.[address] [facility] Comment on above: Performed By: #### 2 09887 #### [facility],[address] [place] [address] 58394 GFR/1.73 sq M.predicted among non-blacks MDRD (S/P/Bld) [Vol rate/Area] mL/min/{1.73_m2} Normal 60 - 999 [facility] Comment on above: Performed By: #### 2 96317 #### [facility],[address] [place] [address] 58136 Result Comment: ACCO RDING TO THE NATIONAL KIDNEY DISEASE EDUCATION PROGRAM(NKDE), A NORMAL eGFR IS A VALUE GREATER THAN OR EQUAL TO 60 ML/MIN/1.73 SQ METERS. CHRONIC KIDNEY DISEASE: <60mL/MIN/1.73 SQ METERS KIDNEY FAILURE: <15mL/MIN/1.73 SQ METERS THIS TEST SHOULD ONLY BE USED FOR PATIENTS 18 YEARS OF AGE AND OLDER. Globulin (S) [Mass/Vol] 3.7 g/dL Normal 1.5 - 3.8 [facility] Comment on above: Performed By: #### 2 42400 #### [facility],[address] [place] [address] 86807 Glucose [Mass/Vol] 85 mg/dL Normal 74 - 106 [facility] Comment on above: Performed By: #### 2 38337 #### [facility],[address] [place] [address] 15908 Potassium [Moles/Vol] 4.2 mmol/L Normal 3.5 - 5.1 [facility] Comment on above: Performed By: #### 2 04833 #### [facility],[address] [place] [address] 18879 Protein [Mass/Vol] 7.4 g/dL Normal 6.4 - 8.2 [facility] Comment on above: Performed By: #### 2 14566 #### [facility],[address] [place] [address] 94981 Sodium [Moles/Vol] 141 mmol/L Normal 136 - 145 [facility] Comment on above: Performed By: #### 2 12462 #### [facility],[address] [place] [address] 14973 Urea nitrogen [Mass/Vol] 18 mg/dL Normal 7 - 18 [facility] Comment on above: Performed By: #### 2 02678 #### [facility],[address] [place] [address] MR ABDOMEN W //T// W/O CONTR Denise 11-30-2022 MR ABDOMEN W //T// W/O CONTRAST [address] [address] Patient: JACKLYN CALHOUN Phone#: : 1950 Age: 72 Gender: F Pt. Type: Out Account: [id number] Location: Ordering: GRACE CASTILLO Exam Date: 11/30/2022/14:50 Family Phys: Charge Code: [id number] Physician: Woodruff Order #: [id number] Dose#: PROCEDURE: MRI ABDOMEN WITH AND WITHOUT CONTRST COMPARISON: [facility], CT, ABDOMEN/PELVIS W CON, 11/21/2022, 11:22. INDICATIONS: Abnormal imaging finding TECHNIQUE: A comprehensive MRI examination of the abdomen was performed utilizing a variety of imaging planes and imaging parameters to optimize visualization of suspected pathology. Images were obtained both before and after intravenous gadolinium injection. FINDINGS: LIVER: No dropout on out of phase imaging. No enlargement, atrophy, abnormal signal, or significant focal lesion. BILIARY: Layering signal in the gallbladder, consistent with sludge. Common bile duct measures 0.5 cm. PANCREAS: At the tail of the pancreas there is a T2 hyperintense, T1 hypointense unilocular cystic lesion measuring 1.7 x 1.3 x 1.3 cm. There is no restricted diffusion. There is mild thin peripheral enhancement. No internal or nodular postcontrast enhancement. Lesion corresponds to the CT finding. Within the lesion is a focal defect, most consistent with mucin plug. The a discrete connection to the main pancreatic duct is not identified. There is a small cyst in the body of the pancreas measuring 0.5 cm. Pancreatic duct measures 0.2 cm. SPLEEN: Normal. No enlargement or focal lesion. KIDNEYS: Kidneys enhance and excrete contrast symmetrically. No hydronephrosis. The inferior aspect of the right kidney is not included on these images. There are bilateral renal cysts present. ADRENALS: Normal. No mass or enlargement. AORTA/VASCULAR: Normal. No aneurysm or dissection. RETROPERITONEUM: Normal. No mass or adenopathy. BOWEL/MESENTERY: Normal. No visible mass, obstruction, or bowel wall thickening. OTHER: Negative. CONCLUSION: 1. Unilocular cystic lesion at the tail the pancreas containing a mucin plug. 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 Recommend surveillance every 6-12 months. [place] [address] Patient: JACKLYN CALHOUN Phone#: : 1950 Age: 72 Gender: F Pt. Type: Out Account: [id number] Location: Ordering: GRACE CASTILLO Exam Date: 11/30/2022/14:50 Family Phys: Charge Code: [id number] Physician: Woodruff Order #: [id number] Dose#: Dictated by: Kimberly Maria MD on 12/04/2022 at 18:49 Approved by: Kimberly Maria MD on 12/06/2022 at 14:13 Normal [facility] CREATININEon 11-17-2022 Creatinine [Mass/Vol] 0.72 mg/dL Normal 0.60-1.00 [facility] Comment on above: Performed By: #### 3 75 #### [facility] [address], [address] [place] [address] Sizing Sprayer: Edy Pavon MD GFR/1.73 sq M.predicted among non-blacks MDRD (S/P/Bld) [Vol rate/Area] 88 mL/min/{1.73_m2} Normal > OR = 60 [facility] Comment on above: Result Comment: The eGFR is based on the CKD-EPI 2020 equation. To calculate the new eGFR from a previous Creatinine or Cystatin C result, go to https://www.kidney.org/professionals/ kdoqi/gfr%5Fcalculator Performed By: #### 3 75 #### [facility] [address], [address] [place] [address] Sizing Sprayer: Edy Pavon MD CBC (INCLUDES DIFF/PLT)on Basophils (Bld) [#/Vol] 0.037 10*3/uL Normal 0-200 [facility] Comment on above: Performed By: #### 6 399, 04835 #### [facility] of [place] [address] Sizing Sprayer: Edy Pavon MD Basophils/100 WBC (Bld) 0.6 % Normal [facility] Comment on above: Performed By: #### 6 399, 82333 #### [facility] [place] [address] Sizing Sprayer: Edy Pavon MD Eosinophils (Bld) [#/Vol] 0.161 10*3/uL Normal 15-500 [facility] Comment on above: Performed By: #### 6 399, 13313 #### [facility] [place] [address] Sizing Sprayer: Edy Pavon MD Eosinophils/100 WBC (Bld) 2.6 % Normal [facility] Comment on above: Performed By: #### 6 399, 66932 #### [facility] [place] [address] Sizing Sprayer: Edy Pavon MD Erythrocyte distribution width (RBC) [Ratio] 15.1 % High 11.0-15.0 [facility] Comment on above: Performed By: #### 6 399, 14574 #### [facility] of [place] [address] Sizing Sprayer: Edy Pavon MD Hematocrit (Bld) [Volume fraction] 39.4 % Normal 35.0-45.0 [facility] Comment on above: Performed By: #### 6 399, 26611 #### [facility] of [place] [address] Sizing Sprayer: Edy Pavon MD Hemoglobin (Bld) [Mass/Vol] 12.4 g/dL Normal 11.7-15.5 [facility] Comment on above: Performed By: #### 6 399, 68306 #### [facility] of [place] [address] Sizing Sprayer: Edy Pavon MD Lymphocytes (Bld) [#/Vol] 2.437 10*3/uL Normal 850-3900 [facility] Comment on above: Performed By: #### 6 399, 62217 #### [facility] of [place] [address] Sizing Sprayer: Edy Pavon MD Lymphocytes/100 WBC (Bld) 39.3 % Normal [facility] Comment on above: Performed By: #### 6 399, 56359 #### [facility] of [place] [address] Sizing Sprayer: Edy Pavon MD MCH (RBC) [Entitic mass] 23.8 pg Low 27.0-33.0 [facility] Comment on above: Performed By: #### 6 399, 33070 #### [facility] of [place] [address] Sizing Sprayer: Edy Pavon MD MCHC (RBC) [Mass/Vol] 31.5 g/dL Low 32.0-36.[address] [facility] Comment on above: Performed By: #### 6 399, 79425 #### [facility] of [place] [address] Sizing Sprayer: Edy Pavon MD MCV (RBC) [Entitic vol] 75.5 fL Low 80.0-100.0 [facility] Comment on above: Performed By: #### 6 399, 04120 #### [facility] of [place] [address] Sizing Sprayer: Edy Pavon MD Monocytes (Bld) [#/Vol] 0.434 10*3/uL Normal 200-950 [facility] Comment on above: Performed By: #### 6 399, 72191 #### [facility] of [place] [address] Sizing Sprayer: Edy Pavon MD Monocytes/100 WBC (Bld) 7.0 % Normal [facility] Comment on above: Performed By: #### 6 399, 25642 #### [facility] of [place] [address] Sizing Sprayer: Edy Pavon MD Neutrophils (Bld) [#/Vol] 3.131 10*3/uL Normal 4296-5737 [facility] Comment on above: Performed By: #### 6 399, 96895 #### [facility] of [place] [address] Sizing Sprayer: Edy Pavon MD Neutrophils/100 WBC (Bld) 50.5 % Normal [facility] Comment on above: Performed By: #### 6 399, 96851 #### [facility] of [place] [address] Sizing Sprayer: Edy Pavon MD Platelet mean volume (Bld) [Entitic vol] 10.6 fL Normal 7.5-12.5 [facility] Comment on above: Performed By: #### 6 399, 64285 #### [facility] of [place] [address] Sizing Sprayer: Edy Pavon MD Platelets (Bld) [#/Vol] 249 10*3/uL Normal 140-400 [facility] Comment on above: Performed By: #### 6 399, 62787 #### [facility] of [place] [address] Sizing Sprayer: Edy Pavon MD RBC (Bld) [#/Vol] 5.22 10*6/uL High 3.80-5.10 [facility] Comment on above: Performed By: #### 6 399, 95810 #### [facility] of [place] [address] Sizing Sprayer: Edy Pavon MD WBC (Bld) [#/Vol] 6.2 10*3/uL Normal 3.8-10.8 [facility] Comment on above: Performed By: #### 6 399, 98906 #### [facility] of [address], [address] [place] [address] Sizing Sprayer: Edy Pavon MD [facility] 05-30-2022 Albumin [Mass/Vol] 3.9 g/dL Normal 3.6-5.1 [facility] Comment on above: Performed By: #### 6 399, 57533 #### [facility] of [address], [address] [place] [address] Sizing Sprayer: Edy Pavon MD Albumin/Globulin [Mass ratio] 1.3 {ratio} Normal 1.0-2.5 [facility] Comment on above: Performed By: #### 6 399, 01556 #### [facility] of [address], [address] [place] [address] Sizing Sprayer: Edy Pavon MD ALP [Catalytic activity/Vol] 80 U/L Normal 37-153 [facility] Comment on above: Performed By: #### 6 399, 80954 #### [facility] of [address], [address] [place] [address] Sizing Sprayer: Edy Pavon MD ALT [Catalytic activity/Vol] 8 U/L Normal 6-29 [facility] Comment on above: Performed By: #### 6 399, 20996 #### [facility] of [address], [address] [place] [address] Sizing Sprayer: Edy Pavon MD AST [Catalytic activity/Vol] 13 U/L Normal 10-35 [facility] Comment on above: Performed By: #### 6 399, 75999 #### [facility] of [address], [address] [place] [address] Sizing Sprayer: Edy Pavon MD Bilirubin [Mass/Vol] 0.5 mg/dL Normal 0.2-1.2 [facility] Comment on above: Performed By: #### 6 399, 37274 #### [facility] of [address], [address] [place] [address] Sizing Sprayer: Edy Pavon MD BUN/CREATININE RATIO NOT APPLICABLE Normal 6-22 [facility] Comment on above: Performed By: #### 6 399, 86400 #### [facility] [place] [address] Sizing Sprayer: Edy Pavon MD Calcium [Mass/Vol] 9.6 mg/dL Normal 8.6-10.4 [facility] Comment on above: Performed By: #### 6 399, 60855 #### [facility] [place] [address] Sizing Sprayer: Edy Pavon MD Chloride [Moles/Vol] 107 mmol/L Normal 98-110 [facility] Comment on above: Performed By: #### 6 399, 78318 #### [facility] [place] [address] Sizing Sprayer: Edy Pavon MD CO2 [Moles/Vol] 28 mmol/L Normal 20-32 [facility] Comment on above: Performed By: #### 6 399, 68132 #### [facility] [place] [address] Sizing Sprayer: Edy Pavon MD Creatinine [Mass/Vol] 0.78 mg/dL Normal 0.60-1.00 [facility] Comment on above: Performed By: #### 6 399, 32471 #### [facility] [place] [address] Sizing Sprayer: Edy Pavon MD GFR/1.73 sq M.predicted among non-blacks MDRD (S/P/Bld) [Vol rate/Area] 80 mL/min/{1.73_m2} Normal > OR = 60 [facility] Comment on above: Result Comment: The eGFR is based on the CKD-EPI 2020 equation. To calculate the new eGFR from a previous Creatinine or Cystatin C result, go to https://www.kidney.org/professionals/ kdoqi/gfr%5Fcalculator Performed By: #### 6 399, 32776 #### [facility] [place] [address] Sizing Sprayer: Edy Pavon MD Globulin (S) [Mass/Vol] 2.9 g/dL Normal 1.9-3.7 [facility] Comment on above: Performed By: #### 6 399, 89807 #### [facility] [place] [address] Sizing Sprayer: Edy Pavon MD Glucose [Mass/Vol] 88 mg/dL Normal 65-99 [facility] Comment on above: Result Comment: Fasting reference interval Performed By: #### 6 399, [id number] #### [facility] [place] [address] Sizing Sprayer: Edy Pavon MD Potassium [Moles/Vol] 4.4 mmol/L Normal 3.5-5.3 [facility] Comment on above: Performed By: #### 6 399, [id number] #### [facility] [place] [address] Sizing Sprayer: Edy Pavon MD Protein [Mass/Vol] 6.8 g/dL Normal 6.1-8.1 [facility] Comment on above: Performed By: #### 6 399, [id number] #### [facility] [place] [address] Sizing Sprayer: Edy Pavon MD Sodium [Moles/Vol] 142 mmol/L Normal 135-146 [facility] Comment on above: Performed By: #### 6 399, [id number] #### [facility] [place] [address] Sizing Sprayer: Edy Pavon MD Urea nitrogen [Mass/Vol] 12 mg/dL Normal 7-25 [facility] Comment on above: Performed By: #### 6 399, [id number] #### [facility] [place] [address] Sizing Sprayer: Edy Pavon MD TSH W/REFLEX TO FT4on 2022 TSH W/REFLEX TO FT4 3.38 mIU/L Normal 0.40-4.50 [facility] Comment on above: Performed By: #### 6 003, [id number] #### [facility] [address] [place] [address] Sizing Sprayer: Edy Pavon MD Vital Signs Date Time Vital Sign Value Performing Clinician Facility 02-10-2025 21:55-0400 Body height 165.1 cm Modestabud Corado ELEVATOR CONSTRUCTOR SUPERVISOR-C Work Phone: [facility] 02-10-2025 21:55-0400 Body mass index (BMI) [Ratio] 24.3 kg/m2 Modestabud Corado ELEVATOR CONSTRUCTOR SUPERVISOR-C Work Phone: [facility] 02-10-2025 21:55-0400 Body temperature 98.2 [degF] Modestabud Corado ELEVATOR CONSTRUCTOR SUPERVISOR-C Work Phone: [facility] 02-10-2025 21:55-0400 Body weight 66.36 kg Modetsabud Corado ELEVATOR CONSTRUCTOR SUPERVISOR-C Work Phone: [facility] 02-10-2025 21:55-0400 Diastolic blood pressure 91 mm[Hg] Modestabud Corado ELEVATOR CONSTRUCTOR SUPERVISOR-C Work Phone: [facility] 02-10-2025 21:55-0400 Heart rate 63 /min Modestabud Corado ELEVATOR CONSTRUCTOR SUPERVISOR-C Work Phone: [facility] 02-10-2025 21:55-0400 Respiratory rate 18 /min Modesta Corado ELEVATOR CONSTRUCTOR SUPERVISOR-C Work Phone: [facility] 02-10-2025 21:55-0400 SaO2% (BldA) [Mass fraction] 98 % Modesta Corado ELEVATOR CONSTRUCTOR SUPERVISOR-C Work Phone: [facility] 02-10-2025 21:55-0400 Systolic blood pressure 174 mm[Hg] Modestabud Corado ELEVATOR CONSTRUCTOR SUPERVISOR-C Work Phone: [facility] 05-19-2023 09:34-0500 Body temperature 98.2 [degF] Perez Carr MD Work Phone: [facility] 05-19-2023 09:34-0500 Diastolic blood pressure 67 mm[Hg] Perez Carr MD Work Phone: [facility] 05-19-2023 09:34-0500 Heart rate 67 /min Perez Carr MD Work Phone: [facility] 05-19-2023 09:34-0500 Respiratory rate 18 /min Perez Carr MD Work Phone: [facility] 05-19-2023 09:34-0500 SaO2% (BldA) [Mass fraction] 97 % Perez Carr MD Work Phone: [facility] 05-19-2023 09:34-0500 Systolic blood pressure 112 mm[Hg] Perez Carr MD Work Phone: [facility] 05-18-2023 04:35-0500 Body mass index (BMI) [Ratio] 22.78 kg/m2 Perez Carr MD Work Phone: [facility] 05-18-2023 04:35-0500 Body weight 56.5 kg Perez Carr MD Work Phone: [facility] 05-17-2023 19:01-0500 Body height 157.5 cm Perez Carr MD Work Phone: [facility] 05-17-2023 17:14-0500 Diastolic Blood Pressure Non-Invasive 81 mm[Hg] RACHEL GARCIA MD [facility] 05-17-2023 17:14-0500 Heart rate 71 /min RACHEL GARCIA MD [facility] 05-17-2023 17:14-0500 Respiratory rate 20 /min RACHEL GARCIA MD [facility] 05-17-2023 17:14-0500 Systolic Blood Pressure Non-Invasive 143 mm[Hg] RACHEL GARCIA MD [facility] 05-17-2023 14:00-0500 Diastolic Blood Pressure Non-Invasive 73 mm[Hg] RACHEL GARCIA MD [address] [place] [address] 05-17-2023 14:00-0500 Heart rate 63 /min RACHEL GARCIA MD [address] [place] [address] 05-17-2023 14:00-0500 Respiratory rate 19 /min RACHEL GARCIA MD [address] [place] [address] 05-17-2023 14:00-0500 Systolic Blood Pressure Non-Invasive 142 mm[Hg] RACHEL GARCIA MD [address] [place] [address] 05-17-2023 10:46-0500 Body height 157.2 cm RACHEL GARCIA MD [address] [place] [address] 05-17-2023 10:46-0500 Body weight 61.3 kg RACHEL GARCIA MD [address] [place] [address] 05-17-2023 10:46-0500 Body weight 24.81 kg/m2 RACHEL GARCIA MD [address] [place] [address] 05-17-2023 10:05-0500 Diastolic Blood Pressure Non-Invasive 64 mm[Hg] RACHEL GARCIA MD [address] [place] [address] 05-17-2023 10:05-0500 Heart rate 58 /min RACHEL GARCIA MD [address] [place] [address] 05-17-2023 10:05-0500 Reason For Taking VItal Signs RACHEL GARCIA MD [address] [place] [address] 05-17-2023 10:05-0500 Respiratory rate 15 /min RACHEL GARCIA MD [address] [place] [address] 05-17-2023 10:05-0500 Systolic Blood Pressure Non-Invasive 158 mm[Hg] RACHEL GARCIA MD [address] [place] [address] 05-17-2023 06:26-0500 Heart rate 72 /min RACHEL GARCIA MD [address] [place] [address] 05-17-2023 01:48-0500 Heart rate 58 /min RACHEL GARCIA MD [facility] 05-16-2023 17:31-0500 Body temperature 98.06 [degF] RACHEL GARCIA MD [facility] 05-16-2023 17:31-0500 Body weight 61.3 kg RACHEL GARCIA MD [facility] Encounters Encounter Date Encounter Type Care Provider Facility Start: 02-10-2025 End: 02-10-2025 Emergency department patient visit Modesta LOPES Work Phone: -Emergency Department Work Phone: Start: 11-26-2023 End: 11-26-2023 ambulatory MODESTA LOPES [facility] Start: 11-25-2023 ambulatory MODESTA LOPES [facility] Start: 05-17-2023 End: 05-17-2023 Emergency department patient visit ALONSO BLACKWOOD [facility] Start: 05-17-2023 End: 05-19-2023 ambulatory PEREZ CAMPBELL [facility] Start: 05-17-2023 End: 05-19-2023 Evaluation and management of inpatient Perez Carr MD Work Phone: [facility] 6 Surgical Oncology Comment on above: Pancreas artery pseu doaneurysm (CMS/HCC) (Primary Dx) Start: 05-16-2023 End: 05-17-2023 ambulatory MADELIN SCHMIDT DO Facility:A Start: 05-16-2023 End: 05-17-2023 Observation RACHEL GARCIA MD [facility] Start: 05-15-2023 End: 05-15-2023 ambulatory MODESTA LOPES [facility] Start: 11-30-2022 End: 11-30-2022 ambulatory GRACE CASTILLO [facility] Procedures Date Procedure Procedure Detail Performing Clinician Start: 02-10-2025 Plain X-ray abdomen Vera LOPES Work Phone: Start: 05-19-2023 DISCHARGE PATIENT JEFF CAMPBELL Start: 05-19-2023 ADULT DISCHARGE DIET BLANCHE CAMPBELL Start: 05-19-2023 DISCHARGE ACTIVITY DANNY CAMPBELL Start: 05-19-2023 FOLLOW UP PRIMARY PHYSICIAN PEREZ CAMPBELL Start: 05-19-2023 NOTIFY PROVIDER (DO NOT PROMPT FOR PARAMETERS) PEREZ CAMPBELL Start: 05-19-2023 WEIGHT LIFTING RESTRICTIONS PEREZ CAMPBELL Start: 05-18-2023 CBC panel - Blood by Automated count PEREZ CAMPBELL Start: 05-18-2023 CT INTERPRETATION OF OUTSIDE FILMS PEREZ CAMPBELL Start: 05-18-2023 Blood count complete automated Gaye Rome MD Work Phone: Start: 05-18-2023 Unlisted computed tomography procedure Sanaz Taylor MD Work Phone: Start: 05-18-2023 CT ANGIO ABDOMEN PEL VIS W AND/OR WO IV IV CONTRAST PEREZ CAMPBELL Start: 05-18-2023 Ct angio abd&plvis c ntrst mtrl w/wo cntrst img Sanaz Taylor MD Work Phone: Start: 05-18-2023 FULL CODE PEREZ FISCHER Start: 05-18-2023 REASON FOR NO DVT PROPHYLAXIS - HOSPITAL ADMISSION - MEDICATIONS PEREZ CAMPBELL Start: 05-18-2023 TELEMETRY MONITORING BLANCHE CAMPBELL Start: 05-18-2023 IR ANGIOGRAM PEREZ FISCHER Start: 05-18-2023 ADMIT TO INPATIENT DANNY CAMPBELL Start: 05-18-2023 ED TO FLOOR BED REQUEST PEREZ CAMPBELL Start: 05-18-2023 CT ABDOMEN PELVIS WO IV CONTRAST PEREZ CAMPBELL Start: 05-18-2023 ECG 12-LEAD PEREZ FISCHER Start: 05-17-2023 Ct abdomen & pelvis w/o contrast material Gaye Rome MD Work Phone: Start: 05-17-2023 Ecg routine ecg w/le ast 12 lds trcg only w/o i&r Alonso E Wilch PA-C Work Phone: Start: 05-17-2023 XR CHEST 1 VIEW PEREZ CAMPBELL Start: 05-17-2023 CBC W Auto Different ial panel - Blood PEREZ CAMPBELL Start: 05-17-2023 COAGULATION SCREEN DANNY CAMPBELL Start: 05-17-2023 Comprehensive metabo lic 2000 panel - Serum or Plasma PEREZ CAMPBELL Start: 05-17-2023 TYPE AND SCREEN PEREZ CAMPBELL Start: 05-17-2023 ED CRITICAL CARE ALEYDA CAMPBELL Start: 05-17-2023 Radiologic exam ches t single view lAonso Blackwood PA-C Work Phone: Start: 05-17-2023 Blood typing serolog ic rh (d) Alonso Blackwood PA-C Work Phone: Start: 05-17-2023 Comprehensive metabo lic panel Alonso Blackwood PA-C Work Phone: Plan of Treatment Date Care Activity Detail Author Start: 02-10-2025 [facility] Start: 01-11-2023 Influenza vaccination Influenza Vacc ine (#1) [facility] Start: 2014 Pneumococcal Vaccine : 65+ Years (1 - PCV) Pneumococcal Vaccine: 65+ Years (1 - PCV) [facility] Start: 1999 Zoster Vaccines (1 o f 2) Zoster Vaccines (1 of 2) [facility] Start: 1989 Screening for malign ant neoplasm of breast Mammogram [facility] Start: 1971 DTaP/Tdap/Td Vaccine s (1 - Tdap) DTaP/Tdap/Td Vaccines (1 - Tdap) [facility] Start: 1967 Hepatitis C screening Hepatitis C Sc [facility] Start: 1949 COVID-19 Vaccine (#1) COVID-19 Vacci ne (#1) [facility] Start: 1949 Lipid panel Lipid Panel [facility] Start: 1949 Screening for malign ant neoplasm of colon [facility] Start: 1949 Screening for osteoporosis Bone Density Scan [facility] Start: 1949 Yearly Adult Physical Yearly Adult P hysical [facility] Electrocardiogram, 12-lead PRN ACS symptoms Electrocardiogram, 12-lead PRN ACS symptoms ECG Routine As needed until discontinued starting 05/18/2023 [facility] Work Phone: Comment on above: As needed until disc ontinued starting 05/18/2023 End: 05-18-2023 Incentive spirometry Instruct Incentive spirometry Instruct Respiratory Care Routine Once for 1 Occurrences starting 05/18/2023 until 05/18/2023 [facility] Work Phone: Comment on above: Once for 1 Occurrenc es starting 05/18/2023 until 05/18/2023 End: 05-18-2023 IR angiogram IR angiogram Imaging STAT Once for 1 Occurrences starting 05/18/2023 until 05/18/2023 [facility] Work Phone: Comment on above: Once for 1 Occurrenc es starting 05/18/2023 until 05/18/2023 IR angiogram IR angiogram Frieda ging STAT 05/18/2023 4:[address] [facility] Work Phone: Patient Education ED Constipation (Adult) [facility] Work Phone: Payers Date Payer Category Payer Self-pay 2025 Unknown 0 2023 Unknown [id number] 2023 Unknown [id number] 2023 Unknown [id number] 1950 Unknown [id number] 2.16.8 [id number] 1950 Unknown [id number] 2.16.8 [id number] 1949 Unknown [id number] 2.16.8 [id number] 1949 Unknown [id number] 2.16.8 [id number] 1949 Unknown [id number] 2.16.8 [id number] 1949 Unknown [id number] 2.16.8 [id number] 1949 Unknown [id number] 2.16.8 [id number] 1949 Unknown [id number] 2.16.8 [id number] 1949 Unknown [id number] 2.16.8 [id number] Unknown [id number] Unknown [id number] 2.16.8 [id number] Social History Date Type Detail Facility Start: 05-18-2023 End: 02-10-2025 Tobacco smoking status NHIS Never smoked tobacco [facility] Start: 05-18-2023 Tobacco use and exposure Smokeless tobacco non-user [facility] Work Phone: Start: 05-18-2023 End: 05-19-2023 History of [address] function [facility] Work Phone: Start: 05-18-2023 End: 05-19-[address] [facility] Work Phone: Has the [employer], or [employer] threatened to shut off services in your home in past 12Mo Patient declined [facility] Work Phone: How often to you hav e a drink containing alcohol? Never [facility] Work Phone: Start: 1950 Sex Assigned At Female [facility] Work Phone: Start: 05-18-2023 Gender identity Identifies as female gender (finding) [facility] Work Phone: Start: 05-18-2023 Sexual orientation Heterosexual (finding) [facility] Work Phone: Start: 05-08-2023 End: 05-18-2023 Exposure to SARS-CoV-2 (event) Not sure [facility] Work Phone: Functional Status Date Assessment Result Facility 05-17-2023 Functional Status Maintained, More than 8 hours [facility] 05-17-2023 Functional Status Awake [facility] spital Mental Status Date Assessment Result Facility 05-17-2023 Mental Status Orientation Oriented x 4 [facility] Clinical Notes 05-17-2023 to 02-10-2025 Note Date & Type Note Facility 02-10-2025 Discharge summary [facility] 02-10-2025 Radiology Diagnostic study note [facility] Imaging Services [address] [place] [address] Abdomen Single View MR#: [id number] Acct: [id number] Name: JACKLYN CALHOUN Rep #: [id number] : 1950 F 74 From: Odell Skelton MD PCP: Modesta Corado, GREGORAI-C Status: RE G ER Study:Abdomen Single View Date of Exam: 02/10/25 Exam# [id number] Ordering Dr: Aneta Norwood MD PROCEDURE: ABDOMEN SINGLE VIEW 02/10/2025 REASON FOR EXAM: CONSTIPATION TECHNIQUE: Procedure Code: RADABD Modality: DX Procedure: ABDOMEN SINGLE VIEW COMPARISON: None available. FINDINGS: The visualized gas pattern is nonobstructive. No discernible free air. Large stool burden throughout the colon suggesting constipation. No unusual calcific densities appreciated. Left upper abdominal metallic coil embolization material and surgical clips, and surgical clips within the pelvis. Multilevel degenerative changes ofthe spine and mild bilateral hip arthrosis. Clear lung bases. RAD/Abdomen Single View IMPRESSION: Nonobstructive gas pattern. Large colonic stool burden. Reading Location: [id number] CC: ELEVATOR CONSTRUCTOR SUPERVISOR-C Modesta Corado; Dr. Danny Norwood MD ~ Mechanical Apprentice: Signed [facility] 02-10-2025 Discharge summary Note Date/Time February 10, 2025 11:10pm [facility] Medical Records Department [address] [place] [address] Emergency Department Summary 02/10/25 MR#: [id number] Acct: [id number] Name: JACKLYN CALHOUN Rep #:[id number] : 1950 74 From: Danny Norwood MD PCP: Modesta Corado, ELEVATOR CONSTRUCTOR SUPERVISOR-C Status:DE P ER Location: ED HPI HPI - GI History of Present Illness Chief Complaint: Constipation Informant: patient and family Abdominal Pain/Flank Pain Onset: Days Context: Gradual Onset Timing: Continuous Nausea/Vomiting/Emesis GI Symptom: Negative for Nausea or Vomiting Diarrhea/Melena/Hematochezia GI Symptom: Positive for - (Constipation); Negative for Diarrhea, Melena or Hematochezia Onset: Days Associated Symptoms Associated Symptoms: Negative for Dysuria, Frequency, Hematuria or Urgency Narrative Narrative: 74-year-old female history of prior colon cancer with partial colectomy, hysterectomy and partial pancreatectomy. States she has had constipation since Saturday with no bowel movement over the last several days. Denies nausea or vomiting. Denies fever. No dysuria. No significant history of constipation. No recent medication or dietary changes. Prior similar symptoms: No Recent Illness/Hospitalization: No PFSH PFSH Medical History Wears hearing aid Loss of hearing Wears glasses Wears dentures Cancer Low iron Non-smoker Adenocarcinoma of colon Home Medications ?Medication ?Instructions ?Recorded ?Last Taken ?Type ferrous sulfate 325 mg (65 mg 325 mg PO 3XW 12/18/23 U nknown History iron) tablet (Feosol) Allergy/AdvReac Type Severity Reaction Status Date / Time No Known Allergies Allergy Verified 02/10/25 21:58 Family History Mother Breast cancer Sister Breast cancer Sister Breast cancer Surgical History History of colonoscopy History of partial pancreatectomy H/O: hysterectomy H/O hemicolectomy Social History Smoking Status: Never smoker alcohol intake: never ROS ROS ED ROS Narrative Constipation. Denies any recent illness. Constitutional Constitutional ED: Denies chills or fever(s) ENT ENT ED: Denies ear pain Cardiovascular Cardiovascular: Denies chest pain Respiratory/Chest Respiratory/Chest: Denies cough Gastrointestinal Gastrointestinal: Reports constipation; Denies abdominal pain, diarrhea, melena,nausea or vomiting Genitourinary Genitourinary ED: Denies dysuria or hematuria Musculoskeletal Musculoskeletal: Denies arthralgias or back pain Integumentary Denies abscess or Abrasions Neurologic Neurologic: Denies headache(s) Psychiatric Psychiatric: Denies anxiety Endocrine Endocrinology: Denies polydipsia Hematologic/Lymphatic Hematologic/Lymphatic: Denies easy bleeding Allergic/Immunologic Allergic/Immunologic ED: Denies mouth swelling, tongue swelling or urticaria EXAM Physical Exam Narrative Exam Narrative: 74 female sitting upright in bed vital signs stable afebrile. Multiple family members present. She is in no distress. H EENT exam pupils round reactive light. Moist mucous membranes. Neck nontender no JVD. No lymphadenopathy. Lungs clear to auscultation bilaterally. Heart regular rhythm no murmur. Abdomen soft, nontender, nondistended normal bowel sounds without peritoneal signs. No hernia or mass. No obstruction. Moving all 4 extremities. Normal strength. Nontender no edema. Back nontender. Neurologically she is awake andalert. Answering questions following commands. Const Vital Signs: 02/10/25 21:55 Temperature 98.2 F Temperature Source Oral Pulse Rate 63 Respiratory Rate 18 Blood Pressure 174/91 H Blood Pressure Mean 118 Pulse Ox 98 Oxygen Delivery Method Room Air MDM MDM MDM Narrative Medical decision making narrative: 74-year-old female with constipation abdomen is benign no signs of obstruction. KUB will be obtained. I do not think she needs any lab work. Repeat exam at 10:59 PM unchanged. Abdomen nontender. We went over her x-ray results. She will be discharged home with [facility] outpatient follow-up return if worse. History & Record Review Discussion w/independent historian: Patient and Family Additional record(s) reviewed:: No prior records Radiography Diagnostic Testing: KUB shows a large amount of stool in the colon and rectum. No signs of obstruction. No air-fluid levels. Discharge Plan Triage Chief Complaint: Constipation ED Provider: Danny Norwood Dx/Rx/DC Orders Clinical Impression: Constipation, History of colon cancer, History of partial colectomy Instructions: ED Constipation (Adult) Prescriptions: No Action ferrous sulfate [Feosol] 325 mg (65 mg iron) tablet 325 mg PO 3XW Primary Care Provider: Modesta Corado NP Referrals: Modesta Corado NP, ELEVATOR CONSTRUCTOR SUPERVISOR-C [Primary Care Provider, Medical] - 1-2 Days if not improving Activity Restrictions/Additional Instructions: Plenty of fluids, fruits, vegetables and fiber. GoLytely 8 to 10 ounce glass every hour until you have a large bowel movement. Start this in the morning. Return if not improving. If you start developing significant abdominal pain or vomiting or fever. You we will have cramping with the GoLytely. Print Language: Anguillan Disposition Disposition: Home, Self Care What to do if you have Problems For any increased pain, shortness of breath, bleeding, nausea or vomiting, chestpain, or any unexpected problems, contact your Primary Care Provider. Call [facility] ([phone]) or report to the closest Emergency Room. Call 911 if necessary. 02/11/25337 <Electronically signed by Danny Norwood MD> Yo Signature (if applicable): CC: ELEVATOR CONSTRUCTOR SUPERVISOR-C Modesta Corado ~ Signed [facility] Work Phone: 1(600) 287-952601-07-2024 Nurse Note* Josefina Wang RN - 05/19/2023 11:01 AM EST Jacklyn Calhoun discharged at 11:01 AM and 05/19/23 Patient discharged via transport . Discharge education and teaching completed with Jacklyn Calhoun and __husband__. RN signature: Josefina Wang RN [facility]01-07-2024 Nurse Note* Josefina Wang RN - 05/19/2023 11:01 AM EST Jacklyn Calhoun discharged at 11:01 AM and 05/19/23 Patient discharged via transport . Discharge education and teaching completed with Jacklyn Calhoun and __husband__. RN signature: Josefina Wang RN [facility] Work Phone: 1(822) 570-588301-07-2024 Hospital Note* Hospital Course - Lam Garza DO - 05/19/2023 8:58 AM EST Jacklyn Calhoun is a 73 y.o. year-old female recent diagnosis of colon cancer s/p resection in June2022 and pancreatic mass s/p resection in December 2022 who presents from [facility] ED due to c/f splenic pseudoaneurysm on imaging. Of note, patient received all of her care at OSH and went to [place] for both of her operations so there are no records. Patient had been doing well since this time and her PCP ordered an outpatient CT for cancer surveillance earlier this week. She was called back and told to present to the ED due to c/f a large splenic pseudoaneurysm. She underwent successful splenic artery embolization with IR on 05/17-05/18. She recovered appropriately without issue. She remained hemodynamically stable throughout her short admission. At the time of discharge, all vital signs and labs were stable, pain was well controlled, tolerating diet with return of bowel function and happy to discharge. Office contact information was given. She will follow-up with her primary care provider. [facility] Work Phone: 1(843) 282-134001-07-2024 Miscellaneous Notes* Hospital Course - Lam Garza DO - 05/19/2023 8:58 AM EST Jacklyn Calhoun is a 73 y.o. year-old female recent diagnosis of colon cancer s/p resection in June2022 and pancreatic mass s/p resection in December 2022 who presents from [facility] ED due to c/f splenic pseudoaneurysm on imaging. Of note, patient received all of her care at OSH and went to [place] for both of her operations so there are no records. Patient had been doing well since this time and her PCP ordered an outpatient CT for cancer surveillance earlier this week. She was called back and told to present to the ED due to c/f a large splenic pseudoaneurysm. She underwent successful splenic artery embolization with IR on 05/17-05/18. She recovered appropriately without issue. She remained hemodynamically stable throughout her short admission. At the time of discharge, all vital signs and labs were stable, pain was well controlled, tolerating diet with return of bowel function and happy to discharge. Office contact information was given. She will follow-up with her primary care provider. * Care Plan - Modesta Oropeza RN - 05/19/2023 6:57 AM EST The patient's goals for the shift include The clinical goals for the shift include be hemodynamically stable * Care Plan - Susi Piedra RN - 05/18/2023 7:49 AM EST Problem: Pain Goal: My pain/discomfort is manageable Outcome: Progressing Problem: Safety Goal: I will remain free of falls Outcome: Progressing Problem: Daily Care Goal: Daily care needs are met Outcome: Progressing Problem: Fall/Injury Goal: Not fall by end of shift Outcome: Progressing Goal: Be free from injury by end of the shift Outcome: Progressing Goal: Verbalize understanding of personal risk factors for fall in the hospital Outcome: Progressing Goal: Verbalize understanding of risk factor reduction measures to prevent injury from fall in the home Outcome: Progressing Goal: Pace activities to prevent fatigue by end of the shift Outcome: Progressing * Care Plan - Modesta Oropeza RN - 05/18/2023 5:36 AM EST The patient's goals for the shift include The clinical goals for the shift include feel better * Care Plan - Modesta Oropeza RN - 05/18/2023 5:31 AM EST The patient's goals for the shift include The clinical goals for the shift include feel better * Post-Procedure Note - Gio Phillips DO - 05/18/2023 4:14 AM EST Interventional Radiology Brief Postprocedure Note Attending: Dr. Jordan Thurston MD Filing Or Registry Clerk: Gio Phillips DO Diagnosis: Splenic artery pseudoaneurysm Description of procedure: IR angiogram with embolization of splenic artery. Please see PACS for further details regarding procedure Anesthesia: Local/see below Complications: None Estimated Blood Loss: Minimal Medications As of 05/18/23 0414 iohexol (OMNIPaque) 350 mg iodine/mL solution 100 mL (mL) Total volume: 100 mL Dosing weight: 60 Date/Time Rate/Dose/Volume Action 05/18/23 0210 100 mL Given iohexol (OMNIPaque) 350 mg iodine/mL solution 150 mL (mL) Total volume: 150 mL Dosing weight: 60 Date/Time Rate/Dose/Volume Action 05/18/23 0209 150 mL Given midazolam (Versed) injection (mg) Total dose: 1 mg Date/Time Rate/Dose/Volume Action 05/18/23 0211 0.5 mg Given 0319 0.5 mg Given fentaNYL PF (Sublimaze) injection (mcg) Total dose: 150 mcg Date/Time Rate/Dose/Volume Action 05/18/23 0210 50 mcg Given 0319 50 mcg Given 0401 50 mcg Given No specimens collected See detailed result report with images in PACS. The patient tolerated the procedure well without incident or complication and is in stable condition. * Pre-Procedure Note - Gio Phillips DO - 05/18/2023 1:13 AM EST Interventional Radiology Preprocedure Note Indication for procedure: The encounter diagnosis was Pancreas artery pseudoaneurysm (CMS/HCC). Relevant review of systems: Review of Systems Constitutional: Negative for chills and fever. Respiratory: Negative for shortness of breath. Cardiovascular: Negative for chest pain. Gastrointestinal: Negative for abdominal pain. Skin: Negative. Neurological: Negative for dizziness, syncope and headaches. Relevant Labs: Lab Results Component Value Date CREATININE 0.67 05/17/2023 EGFR >90 05/17/2023 INR 1.1 05/17/2023 PROTIME 12.5 05/17/2023 Planned Sedation/Anesthesia: Minimal Airway assessment: normal Directed physical examination: Physical Exam Constitutional: General: She is not in acute distress. Appearance: Normal appearance. She is normal weight. Cardiovascular: Rate and Rhythm: Normal rate and regular rhythm. Pulmonary: Effort: Pulmonary effort is normal. Abdominal: General: Abdomen is flat. Skin: General: Skin is warm and dry. Capillary Refill: Capillary refill takes less than 2 seconds. Neurological: Mental Status: She is oriented to person, place, and time. Mallampati: III (soft and hard palate and base of uvula visible) ASA Score: ASA 4 - Patient with severe systemic disease that is a constant threat to life Benefits, risks and alternatives of procedure and planned sedation have been discussed with the patient and/or their airport representative. All questions answered and they agree to proceed. documented in this [facility] Work Phone: 1(374) 208-980101-07-2024 Hospital course Narrative* Lam Garza DO - 05/19/2023 8:56 AM EST Discharge Diagnosis Pancreas artery pseudoaneurysm (CMS/HCC) Issues Requiring Follow-Up N/A Test Results Pending At Discharge Pending Labs No current pending labs. Hospital Course Jacklyn Calhoun is a 73 y.o. year-old female recent diagnosis of colon cancer s/p resection in June2022 and pancreatic mass s/p resection in December 2022 who presents from [facility] ED due to c/f splenic pseudoaneurysm on imaging. Of note, patient received all of [facility] care [facility] and went to [place] for both of her operations so there are no records. Patient had been doing well since this time and her PCP ordered an outpatient CT for cancer surveillance earlier this week. She was called back and told to present to the ED due to c/f a large splenic pseudoaneurysm. She underwent successful splenic artery embolization with IR on 05/17-05/18. She recovered appropriately without issue. She remained hemodynamically stable throughout her short admission. At the time of discharge, all vital signs and labs were stable, pain was well controlled, tolerating diet with return of bowel function and happy to discharge. Office contact information was given. She will follow-up with her primary care provider. Pertinent Physical Exam At Time of Discharge Physical Exam GENERAL APPEARANCE: AxOx4, generally well-appearing no acute distress. HEART: Normal rate and regular rhythm LUNGS: Equal chest rise and fall, non-labored breathing ABDOMEN: Soft, nontender, nondistended EXTREMITIES: Without cyanosis, clubbing or edema. R groin percutaneous access site cdi, no signs ofhematoma formation NEUROLOGICAL: Grossly nonfocal. Alert and oriented, moving all 4 extremities. Skin: Warm and dry without any rash. Home Medications Medication List CONTINUE taking these medications ferrous sulfate (325 mg ferrous sulfate) tablet Outpatient Follow-Up No future appointments. Lam aGrza DO Associated attestation - Perez Campbell MD - 05/19/2023 9:51 AM EST Pt seen in am with team. She feels well. Eating well And B9 Home today. No f/u needed with [facility] 1(864) 882-388101-07-2024 Plan of care note* Care Plan - Modesta Oropeza RN - 05/19/2023 6:57 AM EST The patient's goals for the shift include The clinical goals for the shift include be hemodynamically stable [facility] Work Phone: 1(971) 455-314801-06-2024 History of Present illness Narrative* Patrick Rubio, Cristian - 05/18/2023 10:06 AM EST Pharmacy Medication History Review Jacklyn Calhoun is a 73 y.o. female admitted for Pancreas artery pseudoaneurysm ([facility]). Pharmacy reviewed the patient's [id number] medications and allergies for accuracy. The list below reflects the updated ARMATURE REWINDER list. Comments regarding how patient may be taking medications differently can be found in the Admit Orders Activity Prior to Admission Medications Prescriptions Last Dose Informant ferrous sulfate, 325 mg ferrous sulfate, tablet Sig: Take 1 tablet by mouth 3 times a week. Saturday, Saturday, and Saturday Facility-Administered Medications: None The list below reflects the updated allergy list. Please review each documented allergy for additional clarification and justification. Allergies Reviewed by Modesta Oropeza RN on 05/18/2023 No Known Allergies Patient accepts M2B at discharge. Pharmacy has been updated to [facility]. Sources used to complete the med history include out patient fill history, OARRS, and patient interview Below are additional concerns with the patient's ARMATURE REWINDER list. N/A Patrick Rubio PharmD Transitions of Care Pharmacist [facility] Please reach out via Secure Chat for questions, or if no response call [email or web address] or [email or web address] * Lam Garza DO - 05/18/2023 10:02 AM EST Surgical Oncology Daily Progress Note Subjective Following admission overnight, patient underwent successful splenic embolization with IR This AM her only complain is that she is tired She denies any abdominal pain or pain associated with access site in groin She denies any NV, CP, SOB Current Meds Scheduled medications Continuous medications PRN medications PRN medications: acetaminophen, naloxone, traMADol Objective Vitals: Temp: [36.1 C (97 F)-37.1 C (98.8 F)] 37.1 C (98.8 F) Heart Rate: [56-72] 72 Resp: [14-16] 16 BP: (120-177)/(53-83) 150/83 I/O No intake/output data recorded. Physical Exam GENERAL APPEARANCE: AxOx4, generally well-appearing no acute distress. HEART: Normal rate and regular rhythm LUNGS: Equal chest rise and fall, non-labored breathing ABDOMEN: Soft, nontender, nondistended EXTREMITIES: Without cyanosis, clubbing or edema. R groin percutaneous access site cdi, no signs ofhematoma formation NEUROLOGICAL: Grossly nonfocal. Alert and oriented, moving all 4 extremities. Skin: Warm and dry without any rash. Labs: Lab Results Component Value Date WBC 5.7 05/17/2023 HGB 13.7 05/17/2023 HCT 40.4 05/17/2023 MCV 82 05/17/2023 PLT 194 05/17/2023 Lab Results Component Value Date GLUCOSE 101 (H) 05/17/2023 CALCIUM 10.0 05/17/2023 NA 145 05/17/2023 K 3.9 05/17/2023 CO2 27 05/17/2023 CL 108 (H) 05/17/2023 BUN 14 05/17/2023 CREATININE 0.67 05/17/2023 Lab Results Component Value Date ALT 12 05/17/2023 AST 14 05/17/2023 ALKPHOS 80 05/17/2023 BILITOT 1.0 05/17/2023 Results from last 7 days Lab Units 05/17/23 1906 APTT seconds [address] angio abdomen pelvis w and or wo IV IV contrast Result Date: 05/18/2023 STUDY: CT ANGIO ABDOMEN PELVIS W AND/OR WO IV IV CONTRAST; 05/18/2023 7:15 am INDICATION: Signs/Symptoms:s/p IR embolization of splenic artery pseudoaneurysm. COMPARISON: CT abdomen and pelvis on 05/17/2023. ACCESSION NUMBER(S): [id number] ORDERING CLINICIAN: SANAZ TAYLOR TECHNIQUE: Contiguous [address] images were acquired through the abdomen and pelvis before and after administrationof 93 mL of Omnipaque 350 intravenous contrast. Postcontrast images were obtained in both early arterial and delayed phase images. Sagittal and coronal images were reconstructed. Maximum intensity projection and three dimensional images were constructed at separate workstation. FINDINGS: VASCULAR FINDINGS: Abdominal aorta is normal in caliber without evidence of aneurysmal dilatation. No evidenceof aortic dissection. Mild atherosclerotic calcifications of the abdominal its branching vessels. Celiac axis, superior mesenteric artery, inferior mesenteric artery, and bilateral single renal arteries are patent without any significant narrowing. Celiac axis demonstrates a normal branching pattern. Bilateral common iliac arteries, internal and external iliac arteries, common femoral arteries, and the proximal branches including superficial femoral and profunda femoris arteries are patent without any significant narrowing. Mild atherosclerotic calcifications bilateral common, internal, and external iliac arteries. Interval postoperative changes from coil embolization of splenic artery pseudoaneurysm. No extravasation of contrast to suggest active hemorrhage. Pseudoaneurysm measures approximately 7.3 x 4.8 cm in the transaxial dimension (series 601, image 108), similar to prior exams. Heart is within normal limits of size. No evidence of pericardial effusion. ABDOMEN & PELVIS: LIVER: Within normal limits. BILE DUCTS: Nondilated. GALLBLADDER: No evidence of calcified gallstones or wall thickening. PANCREAS: Postsurgical changes from pancreatic tail resection with redemonstration of large splenic artery pseudoaneurysm, measuring approximately 7.3 x 4.8 cm in the transaxial dimension, similar to prior exam. Remaining pancreas is normal in appearance. 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 ADRENALS: Within normal limits. KIDNEYS, URETERS, URINARY BLADDER: Symmetric bilateral renal enhancement. Multiple hypodense lesions throughout the bilateral kidneys, similar to prior exam, favored to represent simple renal cysts. No evidence of hydronephrosis. Bladder is unremarkable. BOWEL: No evidence of abnormal dilatation or obstruction of the small or large bowel.No evidence of pneumoperitoneum. Positive oral contrast visualized throughout the large bowel. REPRODUCTIVE ORGANS: Unremarkable. PERITONEUM / RETROPERITONEUM / LYMPH NODES: No evidence of any free fluid. No evidence of any significantly enlarged intra-abdominal or pelvic lymph nodes. ABDOMINAL WALL: Multiple small air foci and mild edema/fat stranding within the right groin soft tissues, likely postoperative in nature. Abdominal wall soft tissues are otherwise unremarkable. LOWER CHEST: Mild bibasilar atelectasis. Lung bases are otherwise unremarkable without evidence of focal pulmonary conso lidation, pleural effusion, or pneumothorax. BONES: No evidence of suspicious lytic or blastic osseous lesions. 1. 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 Pseudoaneurysm measures approximately 7.3 x 4.8 cm, similar to prior exam. 2. 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 3. Additional chronic findings as above. I personally reviewed the images/study and I agree with the findings as stated. This study was interpreted at [facility], [place], [place]. MACRO: NoneDictation workstation: [id number] ECG 12 lead Result Date: 05/18/2023 Normal sinus rhythm Cannot rule out Inferior infarct , age undetermined Abnormal ECG No previous ECGs available See ED provider note for full interpretation and clinical correlation Confirmed by Maryann Garsia ([id number]) on 05/18/2023 12:07:[address] abdomen pelvis wo IV contrast Result Date: 05/17/2023 STUDY: CT Abdomen and Pelvis without IV Contrast; 05/17/2023 at 10:41 PM INDICATION: 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 COMPARISON: None available. TECHNIQUE: Contiguous axial images were obtained at 3 mm slice thickness through the abdomen and pelvis. Coronal a nd sagittal reconstructions at 3 mm slice thickness were performed. Automated mA/kV exposure control was utilized and patient examination was performed in strict accordance with principles of ALARA. FINDINGS: The lung bases are normal. The unenhanced liver, spleen, kidneys, adrenals, and pancreas are normal. Sludge filling gallbladder is seen. A 7.5 x 5 cm heterogeneous low-density mass of the tail the pancreas is seen. Contrast is present within the colon. No free fluid, free air, mesenteric inflammatory changes, or abnormal soft tissue masses are seen. Soft tissue masses can have the same appearance as unopacified loops of bowel. The appendix is normal. The abdominal aorta is of normal caliber. The urinary bladder is without masses. No acute fracture or osseous lesion. Hematoma of the tail of the pancreas measuring approximately 7.5 x 5 cm. In the differential diagnosis would also be an abscess however less likely. Signed by Kofi Tierney MD XR chest 1 view Result Date: 05/17/2023 STUDY: Chest Radiograph; 05/17/2023 7:43PM INDICATION: Pre operation. COMPARISON: XR chest 05/09/2023, CT chest abdomen pelvis ACCESSION NUMBER(S): [id number] ORDERING CLINICIAN: ALONSO BLACKWOOD TECHNIQUE: Frontal chest was obtained at 19:42 hours. FINDINGS: CARDIOMEDIASTINAL SILHOUETTE: C ardiomediastinal silhouette is normal in size and configuration. LUNGS: Lungs are clear. ABDOMEN: No remarkable upper abdominal findings. BONES: No acute osseous changes. No radiographic evidence of acute cardiopulmonary disease. Signed by Allen De Los Santos MD Assessment: 73 yo F with recent diagnosis of colon cancer s/p resection in June 2022 in [place] and pancreatic mass s/p resection in December 2022 who was found to have a possible pseudoaneurysm on routine outpatient imaging ordered by her PCP for cancer surveillance. She underwent successful splenic artery embolization with IR on 05/17-05/18. She is recovering appropriately on RNF. Plan: Neuro: -Pain control with Tylenol + Tramadol CV: - HDS Heme: -CBC, no indications for transfusion at this time Resp: - IS GI: -Regular diet - CT angio confirming successful embolization of PSA : - strict I/O - will replace lytes PRN ID: -No infectious concerns at this time Endo: -No indications for insulin at this time MSK: -OOB -PT/OT Ppx: SCD Dispo: -Continue care on RNF, possible dc tomorrow Discussed with Attending Physician Lam Garza DO Department of Surgery / IR Integrated PGY1 Surgical Oncology [id number] Associated attestation - Perez Campbell MD - 05/18/2023 10:33 AM EST Pt seen in am My comments in h and p done last night Working toward dc this afternoon/tomorrow documented in this [facility] Work Phone: 1([phone] 500-583201-06-2024 Plan of care note* Care Plan - Susi Piedra RN - 05/18/2023 7:49 AM EST Problem: Pain Goal: My pain/discomfort is manageable Outcome: Progressing Problem: Safety Goal: I will remain free of falls Outcome: Progressing Problem: Daily Care Goal: Daily care needs are met Outcome: Progressing Problem: Fall/Injury Goal: Not fall by end of shift Outcome: Progressing Goal: Be free from injury by end of the shift Outcome: Progressing Goal: Verbalize understanding of personal risk factors for fall in the hospital Outcome: Progressing Goal: Verbalize understanding of risk factor reduction measures to prevent injury from fall in the home Outcome: Progressing Goal: Pace activities to prevent fatigue by end of the shift Outcome: Progressing [facility]01-06-2024 Plan of care note* Care Plan - Modesta Oropeza RN - 05/18/2023 5:36 AM EST The patient's goals for the shift include The clinical goals for the shift include feel better [facility] Work Phone: [phone] 779-208701-06-2024 Plan of care note* Care Plan - Modesta Oropeza RN - 05/18/2023 5:31 AM EST The patient's goals for the shift include The clinical goals for the shift include feel better [facility] Work Phone: 1(871) 123-933401-06-2024 Note* Post-Procedure Note - Gio Phillips DO - 05/18/2023 4:14 AM EST Interventional Radiology Brief Postprocedure Note Attending: Dr. Jordan Thurston MD Filing Or Registry Clerk: Gio Phillips DO Diagnosis: Splenic artery pseudoaneurysm Description of procedure: IR angiogram with embolization of splenic artery. Please see PACS for further details regarding procedure Anesthesia: Local/see below Complications: None Estimated Blood Loss: Minimal Medications As of 05/18/23 0414 iohexol (OMNIPaque) 350 mg iodine/mL solution 100 mL (mL) Total volume: 100 mL Dosing weight: 60 Date/Time Rate/Dose/Volume Action 05/18/23 0210 100 mL Given iohexol (OMNIPaque) 350 mg iodine/mL solution 150 mL (mL) Total volume: 150 mL Dosing weight: 60 Date/Time Rate/Dose/Volume Action 05/18/23 0209 150 mL Given midazolam (Versed) injection (mg) Total dose: 1 mg Date/Time Rate/Dose/Volume Action 05/18/23 0211 0.5 mg Given 0319 0.5 mg Given fentaNYL PF (Sublimaze) injection (mcg) Total dose: 150 mcg Date/Time Rate/Dose/Volume Action 05/18/23 0210 50 mcg Given 0319 50 mcg Given 0401 50 mcg Given No specimens collected See detailed result report with images in PACS. The patient tolerated the procedure well without incident or complication and is in stable condition. 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 Relevant review of systems: Review of Systems Constitutional: Negative for chills and fever. Respiratory: Negative for shortness of breath. Cardiovascular: Negative for chest pain. Gastrointestinal: Negative for abdominal pain. Skin: Negative. Neurological: Negative for dizziness, syncope and headaches. Relevant Labs: Lab Results Component Value Date CREATININE 0.67 05/17/2023 EGFR >90 05/17/2023 INR 1.1 05/17/2023 PROTIME 12.5 05/17/2023 Planned Sedation/Anesthesia: Minimal Airway assessment: normal Directed physical examination: Physical Exam Constitutional: General: She is not in acute distress. Appearance: Normal appearance. She is normal weight. Cardiovascular: Rate and Rhythm: Normal rate and regular rhythm. Pulmonary: Effort: Pulmonary effort is normal. Abdominal: General: Abdomen is flat. Skin: General: Skin is warm and dry. Capillary Refill: Capillary refill takes less than 2 seconds. Neurological: Mental Status: She is oriented to person, place, and time. Mallampati: III (soft and hard palate and base of uvula visible) ASA Score: ASA 4 - Patient with severe systemic disease that is a constant threat to life Benefits, risks and alternatives of procedure and planned sedation have been discussed with the patient and/or their airport representative. All questions answered and they agree to proceed. [facility] Work Phone: 1(792) 312-389801-05-2024 Consult note* Gaye Rome MD - 05/17/2023 9:23 PM EST Reason For Consult Concern for splenic pseudoaneurysm after pancreatic surgery History Of Present Illness Jacklyn Calhoun is a 73 y.o. [place] female with recent diagnosis of colon cancer s/p resection in June 2022 and pancreatic mass s/p resection in December 2022 who presents [facility] due to c/f splenicpseudoaneurysm on imaging. Of note, patient received all of her care at [facility] and went to [place] for both of her operations so there are no records. All of the information was obtained from patient's and daughter. Per , patient was losing weight and went to get a colonoscopy in May 2022 where she was found to have a near obstructing colon mass. She then went to [place] in June 2022 for resection of colon mass and alternative treatment. She did not receive chemotherapy or radiation. On surveillance imaging after her colon surgery she was diagnosed with a pancreatic mass/cyst and re-presentedto [place] in December 2022 for resection of mass. Per daughter, the mass was considered to be premalignant but the actual diagnosis is unknown. Patient has been doing well since this time and her PCP ordered an outpatient CT for cancer surveillance earlier this week. She was called back and told to present to the ED due to c/f a large splenic pseudoaneurysm. Past Medical History - Colon cancer - Pancreatic mass/cyst Surgical History - Colon resection? - 06/2022 in [place] - Pancreatic resection? - 12/2022 in [place] Social History She has no history on file for tobacco use, alcohol use, and drug use. Family History No family history on file. Allergies Patient has no known allergies. Review of Systems ROS otherwise negative. Physical Exam General: well-developed female, lying in bed, non-toxic Pulm: non labored breathing on RA CV: RRR Abd: well-healed midline and laparoscopic surgical scars. Abd soft, ND, mild TTP in lower quadrants. Ext: WWP Neuro: awake and alert, A&Ox3 Psych: appropriate mood and affect Last Recorded Vitals Blood pressure 133/72, pulse 63, temperature 36.5 C (97.7 F), resp. rate 15, height 1.575 m (5' 2), weight 60 kg (132 lb 4.4 oz), SpO2 (!) 72 %. Relevant Results Results for orders placed or performed during the hospital encounter of 05/17/23 (from the past 24 hour(s)) CBC and Auto Differential Result Value Ref Range WBC 5.7 4.4 - 11.3 x10*3/uL nRBC 0.0 0.0 - 0.0 /100 WBCs RBC 4.95 4.00 - 5.20 x10*6/uL Hemoglobin 13.7 12.0 - 16.0 g/dL Hematocrit 40.4 36.0 - 46.0 % MCV 82 80 - 100 fL MCH 27.7 26.0 - 34.0 pg MCHC 33.9 32.0 - 36.0 g/dL RDW 14.2 11.5 - 14.5 % Platelets 194 150 - 450 x10*3/uL Neutrophils % 61.8 40.0 - 80.0 % Immature Granulocytes %, Automated 0.3 0.0 - 0.9 % Lymphocytes % 26.8 13.0 - 44.0 % Monocytes % 9.6 2.0 - 10.0 % Eosinophils % 1.0 0.0 - 6.0 % Basophils % 0.5 0.0 - 2.0 % Neutrophils Absolute 3.54 1.60 - 5.50 x10*3/uL Immature Granulocytes Absolute, Automated 0.02 0.00 - 0.50 x10*3/uL Lymphocytes Absolute 1.54 0.80 - 3.00 x10*3/uL Monocytes Absolute 0.55 0.05 - 0.80 x10*3/uL Eosinophils Absolute 0.06 0.00 - 0.40 x10*3/uL Basophils Absolute 0.03 0.00 - 0.10 x10*3/uL Comprehensive metabolic panel Result Value Ref Range Glucose 101 (H) 74 - 99 mg/dL Sodium 145 136 - 145 mmol/L Potassium 3.9 3.5 - 5.3 mmol/L Chloride 108 (H) 98 - 107 mmol/L Bicarbonate 27 21 - 32 mmol/L Anion Gap 14 10 - 20 mmol/L Urea Nitrogen 14 6 - 23 mg/dL Creatinine 0.67 0.50 - 1.05 mg/dL eGFR >90 >60 mL/min/1.73m*2 Calcium 10.0 8.6 - 10.6 mg/dL Albumin 4.1 3.4 - 5.0 g/dL Alkaline Phosphatase 80 33 - 136 U/L Total Protein 7.0 6.4 - 8.2 g/dL AST 14 9 - 39 U/L Bilirubin, Total 1.0 0.0 - 1.2 mg/dL ALT 12 7 - 45 U/L Coagulation Screen Result Value Ref Range Protime 12.5 9.8 - 12.8 seconds INR 1.1 0.9 - 1.1 aPTT 32 27 - 38 seconds Assessment/Plan 73 yo F with recent diagnosis of colon cancer s/p resection in June 2022 in [place] and pancreatic mass s/p resection in December 2022 who was found to have a possible pseudoaneurysm on routine outpatient imaging ordered by her PCP for cancer surveillance. Patient is otherwise HDS and asymptomatic. After review of imaging, unclear if origin of PSA is arterial or venous. IR to take patient tonight for angiogram and possible intervention. Recs: - IR tonight for angiogram and possible embolization of arterial source vs CT- guided approach in AMif venous source - Will admit to surg onc after IR procedure for monitoring Discussed with attending surgeon, Dr. Campbell. Gaye Rome MD Surgical Oncology Associated attestation - Perez Campbell MD - 05/18/2023 8:56 AM EST I saw and evaluated the patient. I personally obtained the conklin and critical portions of the historyand physical exam or was physically present for conklin and critical portions performed by the resident/fellow. I reviewed the resident/fellow's documentation and discussed the patient with the resident/f tere. I agree with the resident/fellow's medical decision making as documented in the note with the exception/addition of the following: I was in communication with Chief last night who did a great job relaying this pts information and orchestrating care. IR has already coiled SA. No issues this am. No suggestion of problem at groin access site. Good distal pulse. Pending progress, possibly home today. [facility] Work Phone: [phone] 509-965001-05-2024 Consult note* Gaye Rome MD - 05/17/2023 9:23 PM EST Reason For Consult Concern for splenic pseudoaneurysm after pancreatic surgery History Of Present Illness Jacklyn Calhoun is a 73 y.o. [place] female with recent diagnosis of colon cancer s/p resection in June 2022 and pancreatic mass s/p resection in December 2022 who presents from [facility] ED due to c/f splenicpseudoaneurysm on imaging. Of note, patient received all of her care at [facility] and went to [place] for both of her operations so there are no records. All of the information was obtained from patient's and daughter. Per , patient was losing weight and went to get a colonoscopy in May 2022 where she was found to have a near obstructing colon mass. She then went to [place] in June 2022 for resection of colon mass and alternative treatment. She did not receive chemotherapy or radiation. On surveillance imaging after her colon surgery she was diagnosed with a pancreatic mass/cyst and re-presentedto [place] in December 2022 for resection of mass. Per daughter, the mass was considered to be premalignant but the actual diagnosis is unknown. Patient has been doing well since this time and her PCP ordered an outpatient CT for cancer surveillance earlier this week. She was called back and told to present to the ED due to c/f a large splenic pseudoaneurysm. Past Medical History - Colon cancer - Pancreatic mass/cyst Surgical History - Colon resection? - 06/2022 in [place] - Pancreatic resection? - 12/2022 in [place] Social History She has no history on file for tobacco use, alcohol use, and drug use. Family History No family history on file. Allergies Patient has no known allergies. Review of Systems ROS otherwise negative. Physical Exam General: well-developed female, lying in bed, non-toxic Pulm: non labored breathing on RA CV: RRR Abd: well-healed midline and laparoscopic surgical scars. Abd soft, ND, mild TTP in lower quadrants. Ext: WWP Neuro: awake and alert, A&Ox3 Psych: appropriate mood and affect Last Recorded Vitals Blood pressure 133/72, pulse 63, temperature 36.5 C (97.7 F), resp. rate 15, height 1.575 m (5' 2), weight 60 kg (132 lb 4.4 oz), SpO2 (!) 72 %. Relevant Results Results for orders placed or performed during the hospital encounter of 05/17/23 (from the past 24 hour(s)) CBC and Auto Differential Result Value Ref Range WBC 5.7 4.4 - 11.3 x10*3/uL nRBC 0.0 0.0 - 0.0 /100 WBCs RBC 4.95 4.00 - 5.20 x10*6/uL Hemoglobin 13.7 12.0 - 16.0 g/dL Hematocrit 40.4 36.0 - 46.0 % MCV 82 80 - 100 fL MCH 27.7 26.0 - 34.0 pg MCHC 33.9 32.0 - 36.0 g/dL RDW 14.2 11.5 - 14.5 % Platelets 194 150 - 450 x10*3/uL Neutrophils % 61.8 40.0 - 80.0 % Immature Granulocytes %, Automated 0.3 0.0 - 0.9 % Lymphocytes % 26.8 13.0 - 44.0 % Monocytes % 9.6 2.0 - 10.0 % Eosinophils % 1.0 0.0 - 6.0 % Basophils % 0.5 0.0 - 2.0 % Neutrophils Absolute 3.54 1.60 - 5.50 x10*3/uL Immature Granulocytes Absolute, Automated 0.02 0.00 - 0.50 x10*3/uL Lymphocytes Absolute 1.54 0.80 - 3.00 x10*3/uL Monocytes Absolute 0.55 0.05 - 0.80 x10*3/uL Eosinophils Absolute 0.06 0.00 - 0.40 x10*3/uL Basophils Absolute 0.03 0.00 - 0.10 x10*3/uL Comprehensive metabolic panel Result Value Ref Range Glucose 101 (H) 74 - 99 mg/dL Sodium 145 136 - 145 mmol/L Potassium 3.9 3.5 - 5.3 mmol/L Chloride 108 (H) 98 - 107 mmol/L Bicarbonate 27 21 - 32 mmol/L Anion Gap 14 10 - 20 mmol/L Urea Nitrogen 14 6 - 23 mg/dL Creatinine 0.67 0.50 - 1.05 mg/dL eGFR >90 >60 mL/min/1.73m*2 Calcium 10.0 8.6 - 10.6 mg/dL Albumin 4.1 3.4 - 5.0 g/dL Alkaline Phosphatase 80 33 - 136 U/L Total Protein 7.0 6.4 - 8.2 g/dL AST 14 9 - 39 U/L Bilirubin, Total 1.0 0.0 - 1.2 mg/dL ALT 12 7 - 45 U/L Coagulation Screen Result Value Ref Range Protime 12.5 9.8 - 12.8 seconds INR 1.1 0.9 - 1.1 aPTT 32 27 - 38 seconds Assessment/Plan 73 yo F with recent diagnosis of colon cancer s/p resection in June 2022 in [place] and pancreatic mass s/p resection in December 2022 who was found to have a possible pseudoaneurysm on routine outpatient imaging ordered by her PCP for cancer surveillance. Patient is otherwise HDS and asymptomatic. After review of imaging, unclear if origin of PSA is arterial or venous. IR to take patient tonight for angiogram and possible intervention. Recs: - IR tonight for angiogram and possible embolization of arterial source vs CT- guided approach in AMif venous source - Will admit to surg onc after IR procedure for monitoring Discussed with attending surgeon, Dr. Campbell. Gaye Rome MD Surgical Oncology Associated attestation - Perez Campbell MD - 05/18/2023 8:56 AM EST I saw and evaluated the patient. I personally obtained the conklin and critical portions of the historyand physical exam or was physically present for conklin and critical portions performed by the resident/fellow. I reviewed the resident/fellow's documentation and discussed the patient with the resident/f tere. I agree with the resident/fellow's medical decision making as documented in the note with the exception/addition of the following: I was in communication with Chief last night who did a great job relaying this pts information and orchestrating care. IR has already coiled SA. No issues this am. No suggestion of problem at groin access site. Good distal pulse. Pending progress, possibly home today. [facility] Work Phone: [phone]) 689-490001-05-2024 Emergency department Note* Madelin Burrows RN - 05/17/2023 6:38 PM EST Seen at [facility] yesterday as a follow up to treatment for colon cancer in June and again in December in [place]. Dx Colon Ca May. Ct at [facility] shows Pseudo Splenic Aneurism . Transfered to [place] for higher level of care. Then [place] transfers here for surg cosult. Pt alert , appropriate, denies pain, ambulatory without assist. IV access 20 ga rt a/c documented in [facility] Work Phone: [phone]) 327-293401-05-2024 Emergency department Triage note* Madelin Burrows RN - 05/17/2023 6:38 PM EST Seen at [facility] yesterday as a follow up to treatment for colon cancer in June and again in December in [place]. Dx Colon Ca May. Ct at [facility] shows Pseudo Splenic Aneurism . Transfered to [place] for higher level of care. Then [place] transfers here for surg cosult. Pt alert , appropriate, denies pain, ambulatory without assist. IV access 20 ga rt a/c [facility] Work Phone: [phone]) [phone] Discharge summary Date of Service 05/17/[address] ([id number] - PNED) Pseudoaneurysm (I72.9 - ICD-10-CM) Pseudoaneurysm of splenic artery (I72.8 - ICD-10-CM) Thrombus (I82.90 - ICD-10-CM) Additional Orders: Discontinued: Consult to Physician,05/17/23 9:33:00 EST, SABINE OHARA MD, Ph.D, Routine, Pancreatic pseudocyst Ordered: Consult to Physician,05/17/23 8:11:00 TESS OLSEN MARTA MD, Routine, pancreatic pseudoaneurysm Ordered: Consult to Physician,05/17/23 9:34:00 MAYDA OLSEN JAMES W MD, Ph.D, Routine, Pancreatic pseudoaneurysm Ordered: Discharge,05/17/23 15:36:00 EST, Discharged to: Another Hospital, Accepted by Dr. Reyes at [facility] Course 73-year-old female who Was diagnosed with colon cancer in June of this year, she had hemicolectomy done in [place] and according to the patient her cancer was localized and she did not require any chemotherapy. She has been following up in [place] since. Also during routine surveillancethey found that there was a mass on her pancreas in the summer of last year, she had partial pancreatectomy done in [place] in December of last year and biopsy came back negative for malignancy. The patient has been doing okay, she is totally asymptomatic but she did a CT scan of her abdomen 2 days ago again as part of routine screening, and this showed that she had a pseudoaneurysm of the surgical bed of the pancreas along with pseudoaneurysm of the splenic artery. The patient was asymptomatic during her stay. Case was discussed with general surgery and also interventional radiology here at [place] and they felt as if this was not something that they would be able to appropriately manage at her facility. Therefore we called the transfer center at [facility], after speaking with the transfer line they decided that the best situation would be to send the patient directly to their emergency room. I spoke with the ER physician [Dr. Reyes and he agreed to accept the patient. Allergies NKA Consults Consult to Physician - Ordered -- 05/17/23 8:11:00 TESS OLSEN MARTA MD, Routine, pancreatic pseudoaneurysm Consult to Physician - Ordered -- 05/17/23 8:17:00 ROXANA OLSEN MICHAEL S DO, Routine, pseudoaneurysm s/p pancreatic surgery Consult to Physician - Ordered -- 05/17/23 9:34:00 MAYDA OLSEN JAMES W MD, Ph.D, Routine, Pancreatic pseudoaneurysm Physical Exam Vitals and Measurements T: 36.7 C (Oral) HR: 63(Monitored) RR: 19 BP: 142/73 SpO2: 100% HT: 157.2 cm WT: 61.3 kg BMI: 24.81 Weight Dosing Weight: 61.3 kg (05/17/23) Dosing Weight: 61.3 kg (05/16/23) GENERAL: Pt is comfortable in bed. Appears in no acute distress. HEENT: Mucous membranes pink and moist NEURO: Alert and oriented X 3 CVS: S1 & S2 audible, Regular Rate and Rhythm CHEST : No accesory muscle use, equal air entry bilaterally, no adventitious breath sounds GI: Normoactive BS, abdomen soft and non tender, healed midline surgical scar. EXTREMITIES: No LE edema Code Status Code Status - Ordered -- 05/17/23 3:55:00 EST, Full Code, Constant Order Admission Date 05/17/2023 Discharge Date 05/17/2023 Medications Unchanged ferrous sulfate (IRON (ferrous sulfate 325 mg) 65 mg oral tablet)1 tab(s) by mouth once a day. Follow Up Appointments No qualifying data available. Follow Up Labs/Studies Discharge Labs No Follow-up Labs Discharge Studies No Follow-up Studies Discharge Diet No qualifying data available. Discharge Activity No qualifying data available. Condition on Discharge Stable Discharge Disposition Transfer to [facility] emergency department Information Provided To The patient, her and her daughter Time Spent Greater than 60 minutes spent in discharge planning, time including coordinating care with transferline at [facility] and also speaking to the patient and her family about her medical condition and treatment plan. Digitally Signed by DWAYNE MARQUEZ MD on 05/17/2023 04:44 PM [facility] [id number] Surgery Consult note Date of Service 05/17/2023 Reason for Consultation Pancreatic pseudoaneurysm Referring Physician Dwayne Marquez MD History of Present Illness This is a split shared visit between myself and Dr. Montelongo. This patient is a pleasant 73-year-old female who was initially diagnosed with colon cancer in June 2022. Patient went to [place], underwent a hemicolectomy there, she did not require any chemotherapy. Patient has continued to follow-up in [place] regarding her colon cancer. During her last surveillance exam, patient had a CT done that showed that there was a mass on her pancreas. Patient had partial pancreatectomy done in [place] in December 2022 with biopsy negative for malignancy. Patient hascontinued to do okay well since that point, she underwent a CT scan of her abdomen at [facility] 2days ago as part of her routine screening. The CT scan showed interval development of large pseudoan eurysm in the pancreatic surgical bed. Patient's family was notified that they need to bring her to [facility] for further evaluation. Patient is being admitted to medicine services with a consult to general surgery services at thistime. Per patient and family report, patient has been doing well since surgery. States that her appetite has pretty much returned to normal. She has had no nausea or vomiting, diarrhea or constipation. Patient states she has soft formed BMs approximately 2-3 times per day. Patient denies any blood in herBMs. Denies any melena or hematochezia. Denies any pain with bowel movements. Patient also denies any complaints of abdominal pain, cramping. States she has been able to resume most of her normal daily activities since her surgeries. Patient denies any other past significant history other than the colon cancer. Does not take any medications for high blood pressure or high cholesterol. Patient is not a diabetic, does not take any blood thinners. Patient's family is also present at bedside. Review of Systems All other pertinent positives and negatives are present in the HPI. All other systems are reviewed as negative unless otherwise previously mentioned Physical Exam Vitals and Measurements T: 36.7 C (Oral) HR: 72 RR: 18 BP: 167/61 SpO2: 98% WT: 61.3 kg Weight Dosing Weight: 61.3 kg (05/16/23) General: Awake and alert and in no apparent distress. Able to answer questions and speak in full sentences. Supine in bed. HEENT: Mucous membranes moist and pink. Sclerae anicteric. PERRLA. Heart: Regular rate and rhythm. S1-S2 are present. Lungs: Chest rise symmetrical. Respirations unlabored. Clear to auscultation bilaterally. Abdomen: Soft and nontender. Nondistended. No guarding or rigidity. Bowel sounds 4 quadrants. Well-healed incisions. Extremities: Freely moving. Skin: Normal color for ethnicity. No pallor or diaphoresis. No jaundice. Psychiatric: Calm and cooperative. Lab Results 05/16 18:52 WBC: 6.0 Hgb: 12.6 Hct: 38.3 Platelet: 176 Neutrophil %: 66.6 Glucose Level: 98 Sodium Level: 144 Potassium Level: 4.2 BUN: 15.0 Creatinine Lvl (s): 0.75 Imaging Results and Diagnostics CONCLUSION: 1. 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 Recommend vascular surgery evaluation. Assessment/Plan Abnormal CT Pseudoaneurysm Pseudoaneurysm of splenic artery This patient is a 73-year-old female who underwent a CT scan at [facility] approximately 2 days ago for surveillance exam regarding previous colon cancer and pancreatic cyst. Patient's surgical interventions have all been completed in [place]. After review of CT scan from surgeon in [place], patient was instructed to come to [facility] for [facility] evaluation. CT scan showed evidence of large pseudoaneurysm in the pancreatic surgical bed. Patient's past surgical history includes hemicolectomy as well as a partial pancreatectomy which were both done in [place]. The pancreatectomy was completed in December 2022, the initial hemicolectomy was done in June 2022. She has been able to recuperate without difficulties following both surgeries. States that she was not having any symptoms prior to the CT scan. Patient denies any complaints of abdominal pain, nausea or vomiting, states she has had no difficulties with her bowel movements. Remains afebrile and hemodynamically stable. WBC 6.0, Hgb 12.6, HCT 38.3, CMP unremarkable. Upon examination, patient's abdomen is soft, nondistended, bowel sounds are present. Last BM was yesterday. No acute pain noted with palpation of abdomen. Consider IR for evaluation of drainage of pseudocyst. No acute surgical intervention is planned at this time. Will discuss this case with Dr. Montelongo, please see her addendum to follow. Problem List/Past Medical History Ongoing No qualifying data Historical No qualifying data Procedure/Surgical History No qualifying data available. Medications Inpatient Dextrose 50% IV Push, 12.5 gram(s)= 25 mL, IV Push, AsDirected, PRN melatonin, 3 mg= 1 tab(s), Oral, qHS, PRN melatonin, 3 mg= 1 tab(s), Oral, qHS, PRN Miralax Powder Packet, 17 gram(s)= 15 mL, Oral, qDay, PRN morphine, 2 mg= 1 mL, IV Push, q3h, PRN NS 1,000 mL, 1000 mL, Intravenous Percocet 325/5, 2 tab(s), Oral, q4h, PRN Tylenol, 650 mg= 2 tab(s), Oral, q4h, PRN Zofran, 4 mg= 2 mL, IV Push, q4h, PRN Home IRON (ferrous sulfate 325 mg) 65 mg oral tablet, 325 mg= 1 tab(s), Oral, qDay Allergies NKA Immunizations No qualifying data available. Digitally Signed by JESSIE MENENDEZ on 05/17/2023 09:46 AM [facility] [id number] Evaluation + Plan noteExtracted from: Title:History and Physical Author:RACHEL GARCIA Date:05/17/23 Pseudoaneurysm 70-year-old female with a history of colon cancer status post colectomy found to have an incidental cyst versus mass on the tail of her pancreas underwent a surgical procedure in [place] had an outpatient follow-up CT scan showing a pseudoaneurysm report not currently available will consult interventional radiology to consider repeat imaging and/or coiling. Pseudoaneurysm interventional radiology consult, will monitor closely on the stepdown unit History of colon cancer status post colectomy can consider oncology consult, as she has not seen oncologist DVT prophylaxis SCDs Full code Order reconciliation not complete as home meds not yet verified please reorder as indicated once confirmed by pharmacist-although patient denies taking any home meds Ordered: Assign to Observation status Orders: Bed Request - Admit Code Status Telemetry Monitoring Comments: Ordered secondary to Admit Inpatient to stepdown monitored. [facility] 01-05-2024 Note Date of Service 05/17/2023 Chief Complaint Pseudoaneurysm Subjective 73-year-old female who Was diagnosed with colon cancer in June of this year, she had hemicolectomy done in [place] and according to the patient her cancer was localized and she did not require any chemotherapy. She has been following up in [place] since. Also during routine surveillancethey found that there was a mass on her pancreas in the summer of last year, she had partial pancreatectomy done in [place] in December of last year and biopsy came back negative for malignancy. The patient has been doing okay, she is totally asymptomatic but she did a CT scan of her abdomen 2 days ago again as part of routine screening, and this showed that she had a pseudoaneurysm of the surgical bed of the pancreas. I did not see the CT scan report as this was done a peripheral hospital, the however does have the disc in his position. I saw the patient this morning she had no complaints. Objective Vitals and Measurements T: 36.7 C (Oral) HR: 72 RR: 18 BP: 167/61 SpO2: 98% WT: 61.3 kg Intake and Output 7AM Yesterday to 7AM Today Intake and Output (Last 24 hours) Intake Output Total Summary Total Intake 0.00 Total Output 0.00 Fluid Balance 0.00 Physical Exam GENERAL: Pt is comfortable in bed. Appears in no acute distress. HEENT: Mucous membranes pink and moist NEURO: Alert and oriented X 3 CVS: S1 & S2 audible, Regular Rate and Rhythm CHEST : No accesory muscle use, equal air entry bilaterally, no adventitious breath sounds GI: Normoactive BS, abdomen soft and non tender, healed midline surgical scar. EXTREMITIES: No LE edema Weight Dosing Weight: 61.3 kg (05/16/23) Medications Medications (9) Active Scheduled: (0) Continuous: (1) NS (0.9% nacl) 1,000 mL 1,000 mL, Intravenous, 100 mL/hr PRN: (8) acetaminophen 325 mg Tablet 650 mg 2 tab(s), Oral, q4h acetaminophen-OXYcodone 325 mg-5 mg Tablet 2 tab(s), Oral, q4h dextrose 50% Solution Disp syringe 50 mL 12.5 gram(s) 25 mL, IV Push, AsDirected melatonin 3 mg tablet 3 mg 1 tab(s), Oral, qHS melatonin 3 mg tablet 3 mg 1 tab(s), Oral, qHS morphine 2 mg/mL 1 mL syringe 2 mg 1 mL, IV Push, q3h ondansetron 2 mg/ 1 mL 2 mL INJ 4 mg 2 mL, IV Push, q4h polyethylene glycol 3350 - UD packet 17 gram(s) 15 mL, Oral, qDay Lab Results 05/16 18:52 WBC: 6.0 Hgb: 12.6 Hct: 38.3 Platelet: 176 Neutrophil %: 66.6 Glucose Level: 98 Sodium Level: 144 Potassium Level: 4.2 BUN: 15.0 Creatinine Lvl (s): 0.75 EKG No qualifying data available. Assessment/Plan 1. Pseudoaneurysm 2. History of colon cancer 3. History of benign pancreatic mass 4. Hypertension Plan: Not sure how to proceed from here with regards to pseudoaneurysm, we do not have access to the report. Will ask general surgery to give opinion and decide what further investigations need to be done,probably reviewed the disc that the came with and decide from there. The patient is totallyasymptomatic and I do not anticipate that there needs to be any inpatient treatment at this time, certainly not from an internal medicine's perspective. Despite having colon cancer she is not following up with an oncologist and was not given chemotherapy, the patient wishes to continue their follow-up with [place] and has defaulted being established with an oncologist here at [place]. Blood pressure is somewhat elevated, she does not have a history of hypertension. Likely this is whitecoat hypertension, will continue to monitor blood pressures but for now no need for any pharmacological intervention. Disposition: Discharge dependent on general surgery's plan Digitally Signed by DWAYNE MARQUEZ MD on 05/17/2023 08:40 AM [facility] [id number] Surgery Consult note Date of Service 05/17/2023 Reason for Consultation Pancreatic pseudoaneurysm Referring Physician Dwayne Marquez MD History of Present Illness This is a split shared visit between myself and Dr. Montelongo. This patient is a pleasant 73-year-old female who was initially diagnosed with colon cancer in June 2022. Patient went to [place], underwent a hemicolectomy there, she did not require any chemotherapy. Patient has continued to follow-up in [place] regarding her colon cancer. During her last surveillance exam, patient had a CT done that showed that there was a mass on her pancreas. Patient had partial pancreatectomy done in [place] in December 2022 with biopsy negative for malignancy. Patient hascontinued to do okay well since that point, she underwent a CT scan of her abdomen at [facility] 2days ago as part of her routine screening. The CT scan showed interval development of large pseudoan eurysm in the pancreatic surgical bed. Patient's family was notified that they need to bring her to [facility] for further evaluation. Patient is being admitted to medicine services with a consult to general surgery services at thistime. Per patient and family report, patient has been doing well since surgery. States that her appetite has pretty much returned to normal. She has had no nausea or vomiting, diarrhea or constipation. Patient states she has soft formed BMs approximately 2-3 times per day. Patient denies any blood in herBMs. Denies any melena or hematochezia. Denies any pain with bowel movements. Patient also denies any complaints of abdominal pain, cramping. States she has been able to resume most of her normal daily activities since her surgeries. Patient denies any other past significant history other than the colon cancer. Does not take any medications for high blood pressure or high cholesterol. Patient is not a diabetic, does not take any blood thinners. Patient's family is also present at bedside. Review of Systems All other pertinent positives and negatives are present in the HPI. All other systems are reviewed as negative unless otherwise previously mentioned Physical Exam Vitals and Measurements T: 36.7 C (Oral) HR: 72 RR: 18 BP: 167/61 SpO2: 98% WT: 61.3 kg Weight Dosing Weight: 61.3 kg (05/16/23) General: Awake and alert and in no apparent distress. Able to answer questions and speak in full sentences. Supine in bed. HEENT: Mucous membranes moist and pink. Sclerae anicteric. PERRLA. Heart: Regular rate and rhythm. S1-S2 are present. Lungs: Chest rise symmetrical. Respirations unlabored. Clear to auscultation bilaterally. Abdomen: Soft and nontender. Nondistended. No guarding or rigidity. Bowel sounds 4 quadrants. Well-healed incisions. Extremities: Freely moving. Skin: Normal color for ethnicity. No pallor or diaphoresis. No jaundice. Psychiatric: Calm and cooperative. Lab Results 05/16 18:52 WBC: 6.0 Hgb: 12.6 Hct: 38.3 Platelet: 176 Neutrophil %: 66.6 Glucose Level: 98 Sodium Level: 144 Potassium Level: 4.2 BUN: 15.0 Creatinine Lvl (s): 0.75 Imaging Results and Diagnostics CONCLUSION: 1. 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 Recommend vascular surgery evaluation. Assessment/Plan Abnormal CT Pseudoaneurysm Pseudoaneurysm of splenic artery This patient is a 73-year-old female who underwent a CT scan at [facility] approximately 2 days ago for surveillance exam regarding previous colon cancer and pancreatic cyst. Patient's surgical interventions have all been completed in [place]. After review of CT scan from surgeon in [place], patient was instructed to come to [facility] for further evaluation. CT scan showed evidence of large pseudoaneurysm in the pancreatic surgical bed. Patient's past surgical history includes hemicolectomy as well as a partial pancreatectomy which were both done in [place]. The pancreatectomy was completed in December 2022, the initial hemicolectomy was done in June 2022. She has been able to recuperate without difficulties following both surgeries. States that she was not having any symptoms prior to the CT scan. Patient denies any complaints of abdominal pain, nausea or vomiting, states she has had no difficulties with her bowel movements. Remains afebrile and hemodynamically stable. WBC 6.0, Hgb 12.6, HCT 38.3, CMP unremarkable. Upon examination, patient's abdomen is soft, nondistended, bowel sounds are present. Last BM was yesterday. No acute pain noted with palpation of abdomen. Consider IR for evaluation of drainage of pseudocyst. No acute surgical intervention is planned at this time. Will discuss this case with Dr. Montelongo, please see her addendum to follow. Problem List/Past Medical History Ongoing No qualifying data Historical No qualifying data Procedure/Surgical History No qualifying data available. Medications Inpatient Dextrose 50% IV Push, 12.5 gram(s)= 25 mL, IV Push, AsDirected, PRN melatonin, 3 mg= 1 tab(s), Oral, qHS, PRN melatonin, 3 mg= 1 tab(s), Oral, qHS, PRN Miralax Powder Packet, 17 gram(s)= 15 mL, Oral, qDay, PRN morphine, 2 mg= 1 mL, IV Push, q3h, PRN NS 1,000 mL, 1000 mL, Intravenous Percocet 325/5, 2 tab(s), Oral, q4h, PRN Tylenol, 650 mg= 2 tab(s), Oral, q4h, PRN Zofran, 4 mg= 2 mL, IV Push, q4h, PRN Home IRON (ferrous sulfate 325 mg) 65 mg oral tablet, 325 mg= 1 tab(s), Oral, qDay Allergies NKA Immunizations No qualifying data available. Digitally Signed by JESSIE MENENDEZ on 05/17/2023 09:46 AM [id number] Note Date of Service 05/17/2023 Chief Complaint Pseudoaneurysm Subjective 73-year-old female who Was diagnosed with colon cancer in June of this year, she had hemicolectomy done in [place] and according to the patient her cancer was localized and she did not require any chemotherapy. She has been following up in [place] since. Also during routine surveillancethey found that there was a mass on her pancreas in the summer of last year, she had partial pancreatectomy done in [place] in December of last year and biopsy came back negative for malignancy. The patient has been doing okay, she is totally asymptomatic but she did a CT scan of her abdomen 2 days ago again as part of routine screening, and this showed that she had a pseudoaneurysm of the surgical bed of the pancreas. I did not see the CT scan report as this was done a peripheral hospital, the however does have the disc in his position. I saw the patient this morning she had no complaints. Objective Vitals and Measurements T: 36.7 C (Oral) HR: 72 RR: 18 BP: 167/61 SpO2: 98% WT: 61.3 kg Intake and Output 7AM Yesterday to 7AM Today Intake and Output (Last 24 hours) Intake Output Total Summary Total Intake 0.00 Total Output 0.00 Fluid Balance 0.00 Physical Exam GENERAL: Pt is comfortable in bed. Appears in no acute distress. HEENT: Mucous membranes pink and moist NEURO: Alert and oriented X 3 CVS: S1 & S2 audible, Regular Rate and Rhythm CHEST : No accesory muscle use, equal air entry bilaterally, no adventitious breath sounds GI: Normoactive BS, abdomen soft and non tender, healed midline surgical scar. EXTREMITIES: No LE edema Weight Dosing Weight: 61.3 kg (05/16/23) Medications Medications (9) Active Scheduled: (0) Continuous: (1) NS (0.9% nacl) 1,000 mL 1,000 mL, Intravenous, 100 mL/hr PRN: (8) acetaminophen 325 mg Tablet 650 mg 2 tab(s), Oral, q4h acetaminophen-OXYcodone 325 mg-5 mg Tablet 2 tab(s), Oral, q4h dextrose 50% Solution Disp syringe 50 mL 12.5 gram(s) 25 mL, IV Push, AsDirected melatonin 3 mg tablet 3 mg 1 tab(s), Oral, qHS melatonin 3 mg tablet 3 mg 1 tab(s), Oral, qHS morphine 2 mg/mL 1 mL syringe 2 mg 1 mL, IV Push, q3h ondansetron 2 mg/ 1 mL 2 mL INJ 4 mg 2 mL, IV Push, q4h polyethylene glycol 3350 - UD packet 17 gram(s) 15 mL, Oral, qDay Lab Results 05/16 18:52 WBC: 6.0 Hgb: 12.6 Hct: 38.3 Platelet: 176 Neutrophil %: 66.6 Glucose Level: 98 Sodium Level: 144 Potassium Level: 4.2 BUN: 15.0 Creatinine Lvl (s): 0.75 EKG No qualifying data available. Assessment/Plan 1. Pseudoaneurysm 2. History of colon cancer 3. History of benign pancreatic mass 4. Hypertension Plan: Not sure how to proceed from here with regards to pseudoaneurysm, we do not have access to the report. Will ask general surgery to give opinion and decide what further investigations need to be done,probably reviewed the disc that the came with and decide from there. The patient is totallyasymptomatic and I do not anticipate that there needs to be any inpatient treatment at this time, certainly not from an internal medicine's perspective. Despite having colon cancer she is not following up with an oncologist and was not given chemotherapy, the patient wishes to continue their follow-up with [place] and has defaulted being established with an oncologist here at [place]. Blood pressure is somewhat elevated, she does not have a history of hypertension. Likely this is whitecoat hypertension, will continue to monitor blood pressures but for now no need for any pharmacological intervention. Disposition: Discharge dependent on general surgery's plan Digitally Signed by DWAYNE MARQUEZ MD on 05/17/2023 08:40 AM [facility] [id number] History and physical note Date of Service 05/17/2022 Chief Complaint Patient was sent to the ER for an abnormal CT scan. States her CT scan yesterday showed pseudoaneursym in surgical bed of pancreas. Pancreatic lesion was removed on January 04. Denies any pain. History of Present Illness 73-year-old female from [facility] was recently diagnosed with colon cancer and went to [facility] for a colectomy she did not receive any postop chemotherapy she did follow-up with her primary care nurse practitioner near [facility] who did an outpatient CT which showed a lesion on the tail of the pancreas, the primary care provider recommended monitoring they went to [place] for a second opinion where she was offered a surgical removal of the pancreatic cystic mass in December, she followed up with her nurse practitioner primary care provider at who did a repeat CT abdomen 2 days ago which showed a pseudoaneurysm of the surgical bed of the pancreas and recommended she come to the emergency department for evaluation the patient denies any current pain they do have the report and the disc at home but forgot both. The patient's son is mobile and his cell phone is [phone] and he will be here later this morning. The emergency doctor spoke to the vascular surgeon on-call Dr. Hall who recommended admission to the hospital service and an interventional radiology consult to consider coiling the pseudoaneurysm. I proceed with the ED physician Dr. Lara as well as the patient at the bedside Patient denies any pain, nausea, vomiting, fever or chills As per the and daughter they had heard good things about the care in [place] including better pricing Review of Systems All pertinent positive and negative review of systems as per HPI, all other review of systems reviewed and negative Physical Exam Vitals and Measurements T: 36.7 C (Oral) HR: 58 RR: 18 BP: 178/70 SpO2: 98% WT: 61.3 kg Weight Dosing Weight: 61.3 kg (05/16/23) GENERAL:Well nourished ; no acute distress. ASSISTIVE DEVICES: None PSYCHIATRIC: appropriate HEENT moist mucous membranes extraocular muscles intact CARDIOVASCULAR: Regular rate, regular rhythm, no murmurs noted. Notrace lower extremity pitting edema. No lymphedema. Dorsalis Pedis pulses+2/4 blaterally . Posterior Tibialis pulses+2/4 bilaterally . RESPIRATORY: Regular rate and depth; no distress, RIGHT lungclear ; LEFT lungclear . Breath soundsnormal . ABDOMEN soft, no guarding, nontender, nondistended, positive bowel sounds, abdominal scar clean dryand intact NEURO: no focal deficits DERM: no acute rash Lab Results 05/16 18:52 WBC: 6.0 Hgb: 12.6 Hct: 38.3 Platelet: 176 Neutrophil %: 66.6 Glucose Level: 98 Sodium Level: 144 Potassium Level: 4.2 BUN: 15.0 Creatinine Lvl (s): 0.75 Assessment/Plan Pseudoaneurysm 70-year-old female with a history of colon cancer status post colectomy found to have an incidentalcyst versus mass on the tail of her pancreas underwent a surgical procedure in [place] had an outpatient follow-up CT scan showing a pseudoaneurysm report not currently available will consult interventional radiology to consider repeat imaging and/or coiling. Pseudoaneurysm interventional radiology consult, will monitor closely on the stepdown unit History of colon cancer status post colectomy can consider oncology consult, as she has not seen oncologist DVT prophylaxis SCDs Full code Order reconciliation not complete as home meds not yet verified please reorder as indicated once confirmed by pharmacist-although patient denies taking any home meds Ordered: Assign to Observation status Orders: Bed Request - Admit Code Status Telemetry Monitoring Comments: Ordered secondary to Admit Inpatient to stepdown monitored. Problem List/Past Medical History Ongoing No qualifying data Historical No qualifying data Colon cancer Pancreatic mass Procedure/Surgical History No qualifying data available. Cholectomy Pancreatic surgery Medications No qualifying data available Allergies NKA Social History Non-smoker nondrinker no drug use Family History Noncontributory to current presentation Immunizations No qualifying data available. Code Status Code Status - Ordered -- 05/17/23 3:55:00 EST, Full Code, Constant Order Digitally Signed by RACHEL GARCIA MD on 05/17/2023 04:08 AM [facility] Diagnosis Pancreas artery pseudoaneurysm (CMS/HCC)- Primary Other aneurysm of unspecified site Pancreas artery pseudoaneurysm (CMS/HCC) Other aneurysm of unspecified site documented in this encounter [facility] Work Phone: Evaluation noteNo assessment information available [facility] Work Phone: Hospital course Narrative No data available for this section [facility] Discharge instructions No data available for this section [facility] Discharge instructionsAdditional Instructions Plenty of fluids, fruits, vegetables and fiber. GoLytely 8 to 10 ounce glass every hour until you have a large bowel movement. Start this in the morning. Return if not improving. If you start developing significant abdominal pain or vomiting or fever. You we will have cramping with the GoLytely.[facility] Work Phone: Reason for referral (narrative)No reason for referral information availableWBlanchard [facility] Work Phone: Summary Purpose Family History No Family History Records Found Relationship Condition Age at Onset Recorded Date/T kaci mother Malignant neoplasm of breast Unknown sister Malignant neoplasm of breast Unknown Advance Directives No Advanced Directives Records FoundLatest Code Status on File Code Status Date Activated Date Inactivated Comments Full Code 05/18/2023 4:37 AM Question Answer Comments Plan of Care: Code Status Discussion Completed Decision Maker: Patient Advance Directive Response Recorded Date/ Time Do you have a Healthcare Power of Fertilizer Mixer? No February 10, 2025 10:34pm Chief Complaint and Reason for Visit Chief Complaint Admit Date Constipation February 10, 2025 9: 55pm Additional Source Comments INFORMATION SOURCE (unrecogn ized section and content) DATE CREATED AUTHOR 11/17/2022 [facility] DATE CREATED AUTHOR AUTHOR'S ORGANIZ ATION 05/19/2023 [facility] DATE CREATED AUTHOR AUTHOR'S ORGANIZ ATION 05/31/2023 [facility] ([place]) DATE CREATED AUTHOR AUTHOR'S ORGANIZ ATION 11/29/2023 [facility] DATE CREATED AUTHOR AUTHOR'S ORGANIZ ATION 02/02/2024 [facility] DATE CREATED AUTHOR AUTHOR'S ORGANIZ ATION 02/22/2025 [facility] Patient Care team informatio n (unrecognized section and content) Team Status: Active Member Role/Relationship Status Dates Modesta Corado ELEVATOR CONSTRUCTOR SUPERVISOR, ELEVATOR CONSTRUCTOR SUPERVISOR-C Primary care physician Acti ve Team Status: Inactive Member Role/Relationship Status Dates Modesta Corado ELEVATOR CONSTRUCTOR SUPERVISOR, ELEVATOR CONSTRUCTOR SUPERVISOR-C Primary care physician Acti ve Start: February 10, 2025 End: February 10, 2025 Dr. Danny Norwood MD Emergency Departmen t Physician Active Start: February 10, 2025 End: February 10, 2025 Reason for Visit (unrecogniz ed section and content) Reason Comments surgical consult [facility] Scheduled Active and Recently Administ ered Medications (unrecognized section and content) Medication Order 05/17/2023 05/18/2023 05/19/2023 iohexol (OMNIPaque) 350 mg iodine/mL solution 100 mL (COMPLETED) 100 mL, intravenous, Once in imaging, Starting on 05/18/23 at 0209, For 1 dose, Intraprocedure 0210 (Given - Provider: Milly Coles) iohexol (OMNIPaque) 350 mg iodine/mL solution 100 mL (COMPLETED) 100 mL, intravenous, Once in imaging, Starting on 05/18/23 at 0715, For 1 dose 0716 (Given - Provider: Di Hernandez) iohexol (OMNIPaque) 350 mg iodine/mL solution 150 mL (COMPLETED) 150 mL, intravenous, Once in imaging, Starting on 05/18/23 at 0209, For 1 dose, Intraprocedure 0209 (Given - Provider: Milly Coles) PRN Medication Order 05/17/2023 05/18/2023 05/19/2023 acetaminophen (Tylenol) tablet 650 mg 650 mg, oral, Every 4 hours PRN, pain mild (1-3), first line, Starting on 05/18/23 at 0436, Phase II/On Unit, If ordered PRN for pain, nurse is permitted to administer this medication for higher pain scores based on patient preference? Yes fentaNYL PF (Sublimaze) injection (COMPLETED) intravenous, Once PRN Procedure, Starting on 05/18/23 at 0210, For 1 dose, Intraprocedure 0210 (Given - Provider: Guero Delarosa RN) fentaNYL PF (Sublimaze) injection (COMPLETED) intravenous, Once PRN Procedure, Starting on 05/18/23 at 0319, For 1 dose, Intraprocedure 0319 (Given - Provider: Guero Delarosa RN) fentaNYL PF (Sublimaze) injection (COMPLETED) intravenous, Once PRN Procedure, Starting on 05/18/23 at 0401, For 1 dose, Intraprocedure 0401 (Given - Provider: Guero Delarosa RN) midazolam (Versed) injection (COMPLETED) intravenous, Once PRN Procedure, Starting on 05/18/23 at 0211, For 1 dose, Intraprocedure 0211 (Given - Provider: Guero Delarosa, STEFANO) midazolam (Versed) injection (COMPLETED) intravenous, Once PRN Procedure, Starting on 05/18/23 at 0319, For 1 dose, Intraprocedure 0319 (Given - Provider: Guero Delarosa, STEFANO) naloxone (Narcan) injection 0.2 mg 0.2 mg, intravenous, Every 5 min PRN, respiratory depression, Starting on 05/18/23 at 0436, Phase II/On Unit, If respiratory rate is less than 8 breaths/minute or patient is difficult to arouse stop any narcotics and contact physician. Administer slow IV push. Repeat as ordered until patient's respiratory rate is greater than 12 breaths/minute. ondansetron (Zofran) injection 4 mg(Linked Group 1) 4 mg, intravenous, Every 8 hours PRN, nausea/vomiting, first line, Starting on 05/18/23 at 1346, 1st Line. Give IV if patient is unable to take orally. If inadequate response within 60 minutes, proceed to next-line agent for same PRN reason or contact provider if no further options ordered. When administering via IV Push, administer over 3-5 minutes. 1407 (Given - Provider: Suzanne Piedra RN) ondansetron (Zofran) tablet 4 mg(Linked Group 1) 4 mg, oral, Every 8 hours PRN, nausea/vomiting, first line, Starting on 05/18/23 at 1346, 1st Line. Use oral route first, if possible. If inadequate response within 60 minutes, proceed to next-line agent for same PRN reason or contact provider if no further options ordered. 1407 (See Alternative - Provider: Susi Piedra RN) traMADol (Ultram) tablet 50 mg 50 mg, oral, Every 6 hours PRN, pain moderate (4-6), first line, Starting on 05/18/23 at 0436, Phase II/On Unit, Max of 300 mg daily for patients > 75 years of age., If ordered PRN for pain, nurse is permitted to administer this medication for higher pain scores based on patient preference? Yes Linked Groups Order Group 1: ondansetron (Zofran) tablet 4 mgJump to med 4 mg, oral, Every 8 hours PRN, nausea/vomiting, first line, Starting on 1/6/24 at 1346
1st Line. Use oral route first, if possible. If inadequate response within 60 minutes, proceed to next-line agent for same PRN reason or contact provider if no further options ordered.
Or ondansetron (Zofran) injection 4 mgJump to med 4 mg, intravenous, Every 8 hours PRN, nausea/vomiting, first line, Starting on 05/18/23 at 1346
1st Line. Give IV if patient is unable to take orally. If inadequate response within 60 minutes, proceed to next-line agent for same PRN reason or contact provider if no further options ordered. When administering via IV Push, administer over 3-5 minutes.
Goals (unrecognized section and content) Goals may be documented in a n alternate section FOR RECORDS PERTAINING TO PATIENTS WHO ARE OR HAVE BEEN ENROLLED IN A CHEMICAL DEPENDENCY/SUBSTANCEABUSE PROGRAM, SOME INFORMATION MAY BE OMITTED. This clinical summary was aggregated from multiple sources. Caution should be exercised in using it in the provision of clinical care. This summary normalizes information from multiple sources, and as a consequence, information in this document may materially change the coding, format and clinical context of patient data. In addition, data may be omitted in some cases. CLINICAL DECISIONS SHOULD BE BASED ON THE PRIMARY CLINICAL RECORDS. [facility] provides no warranty or guarantee of the accuracy or completeness of information in this document.
--- NOTE | 2025-04-27 21:01 | ED.RN ---
REPORT GIVEN TO PHYSICIANS TRANSPORT TEAM AT THIS TIME
--- NOTE | 2025-04-27 21:06 | ED.RN ---
REPORT CALLED TO [facility] GENERAL NURSE [facility] AT THIS TIME.
== END 2025-04-27 21:15 | disposition short-term general hospital (02) ==
LOC: ED 15:24
PROVIDERS: Emergency Provider Emergency Medicine; PCP Nurse Practitioner Family; Visit Provider Emergency Medicine
DX: R41.82 Altered mental status, unspecified (principal); R29.700 NIHSS score 0; Z90.410 Acquired total absence of pancreas; Z90.710 Acquired absence of both cervix and uterus; Z85.038 Personal history of other malignant neoplasm of large intestine; G93.9 Disorder of brain, unspecified
CPT/HCPCS: 70450; 71045; 80048; 80053; 81001; 83605; 85025; 87631; 93005; 96361; 96365; 96375; 99285; A4216; J2405